=== PATIENT | female | born 1975 | race African-American/Black ===

== ENCOUNTER 2016-07-05 09:35 | Emergency (ER) | payer MEDICAID, OTHER ==
[~2016-07-05] VITALS: Ht 152.4 cm; Wt 77.6 kg
[~2016-07-05 09:35] MED LIST: ACET1TAB86 PO; AZAT50TA PO; FURO20TA3 PO; FURO40TA4 PO; HYDR25TA9 PO; LEVO50TA5 PO; NAPR500T3 PO; OXYC10TA PO; PNV1TABL4 PO; POTA20TA12 PO; PRED-220 PO; PRED5TAB19 PO; TRAM50TA PO; URSO300C3 PO
--- NOTE | 2016-07-05 10:38 | ED.ADGEN ---
Past History Past Medical History: Hypothyroid, Liver Disease, STD, UTI Past Surgical History: Cholecystectomy, , Hysterectomy, Tubal ligation , Other Smoking: Non-smoker Alcohol Use: None Drug Use: None Adult General HPI HPI Patient is a 41-year-old female presents emergency department complaining of a four-day history of dysuria and vaginal discharge consistent with her previous sexual transmitted diseases. She denies any fevers, chills, nausea, vomiting. Patient would like to defer exam and be treated empirically. Review of Systems Review of Systems Constitutional: Denies fever or chills [] Eyes: Denies change in visual acuity, redness, or eye pain [] HENT: Denies nasal congestion or sore throat [] Respiratory: Denies cough or shortness of breath [] Cardiovascular: No additional information not addressed in HPI [] GI: Denies abdominal pain, nausea, vomiting, bloody stools or diarrhea [] : Denies dysuria or hematuria [] Musculoskeletal: Denies back pain or joint pain [] Integument: Denies rash or skin lesions [] Neurologic: Denies headache, focal weakness or sensory changes [] Endocrine: Denies polyuria or polydipsia [] Current Medications Current Medications Current Medications Medications (Trade) Dose Ordered Sig/Erick Start Time Stop Time Status Last Admin Dose Admin Azithromycin (Zithromax) 1,000 mg 1X ONCE 07/05/16 11:00 07/05/16 11:01 DC 07/05/16 10:47 1,000 MG Ceftriaxone Sodium (Rocephin Im) 250 mg 1X ONCE 07/05/16 11:00 07/05/16 11:01 DC 07/05/16 10:47 250 MG Metronidazole (Flagyl) 2,000 mg 1X ONCE 07/05/16 11:00 07/05/16 11:01 DC 07/05/16 10:47 2,000 MG Allergies Allergies Allergies Coded Allergies Type Severity Reaction Last Updated Verified acetaminophen Adverse Reaction Severe 02/04/16 No Physical Exam Physical Exam Constitutional: Well developed, well nourished, no acute distress, non-toxic appearance. [] HENT: Normocephalic, atraumatic, bilateral external ears normal, oropharynx moist, no oral exudates, nose normal. [] Eyes: PERRLA, EOMI, conjunctiva normal, no discharge. [] Neck: Normal range of motion, no tenderness, supple, no stridor. [] Cardiovascular:Heart rate regular rhythm, no murmur [] Lungs & Thorax: Bilateral breath sounds clear to auscultation [] Abdomen: Bowel sounds normal, soft, no tenderness, no masses, no pulsatile masses. [] Skin: Warm, dry, no erythema, no rash. [] Back: No tenderness, no CVA tenderness. [] Extremities: No tenderness, no cyanosis, no clubbing, ROM intact, no edema. [] Neurologic: Alert and oriented X 3, normal motor function, normal sensory function, no focal deficits noted. [] Psychologic: Affect normal, judgement normal, mood normal. [] Current Patient Data Vital Signs Vital Signs Date Time Temp Pulse Resp B/P Pulse Ox O2 Delivery O2 Flow Rate FiO2 07/05/16 11:25 98.4 93 18 103/69 98 Room Air Lab Results Laboratory Tests Test 07/05/16 10:55 Urine Collection Type Unknown Urine Color Yellow Urine Clarity Cloudy Urine pH 6.5 Urine Specific [place] 1.025 Urine Protein 100 mg/dl (NEG-TRACE) Urine Glucose (UA) Negmg/dL (NEG) Urine Ketones (Stick) Tracemg/dL (NEG) Urine Blood Trace (NEG) Urine Nitrite Neg (NEG) Urine Bilirubin Neg (NEG) Urine Urobilinogen Dipstick 1mg/dL (0.2 mg/dL) Urine Leukocyte Esterase Small (NEG) Urine RBC 1-2/HPF (0-2) Urine WBC >40/HPF (0-4) Urine Squamous Epithelial Cells Occ/LPF Urine Bacteria Mod/HPF (0-FEW) Urine Mucus Slight/LPF Urine Sperm Present/HPF EKG EKG [] Radiology/Procedures Radiology/Procedures [] Course & Med Decision Making Course & Med Decision Making Pertinent Labs and Imaging studies reviewed. (See chart for details) Patient was given a dose of Rocephin, azithromycin, and Flagyl here in the emergency department. [] Final Impression Final Impression Presumed gonorrhea and chlamydia [] Problems: Dragon Disclaimer Dragon Disclaimer This electronic medical record was generated, in whole or in part, using a voice recognition dictation system. KAELYN CHEUNG MD Jul 05, 2016 10:38
[2016-07-05] MEDS: METRONIDAZOLE 500 MG TABLET PO ONE (10:47)
[2016-07-05] MEDS: CEFTRIAXONE IM 250 MG VIAL. IM ONE (10:47)
[2016-07-05] MEDS: AZITHROMYCIN 250 MG TABLET. PO ONE (10:47)
[2016-07-05] MEDS ORDERED: CIPR500T94 PO (11:03)
[2016-07-05 11:25] VITALS: BP 103/69
[2016-07-05 11:29] LABS: BILIRUBIN,URINE NEG (NEG); CLARITY,URINE CLOUDY; COLOR,URINE YELLOW; GLUCOSE,URINE NEG (NEG); NITRITE,URINE NEG (NEG); UROBILINOGEN,URINE 1 mg/dL (0.2 mg/dL)
[2016-07-05 11:30] LABS: BACTERIA,URINE MOD /HPF (0-FEW); SPERM,URINE PRESENT /HPF; SQUAMOUS EPITHELIAL CELL,UR OCC /LPF; WBC,URINE >40 /HPF (0-4)
== END 2016-07-05 11:35 | disposition home or self-care (01) ==
LOC: ER 09:35
DX: A54.9 Gonococcal infection, unspecified (principal); A74.9 Chlamydial infection, unspecified; E03.9 Hypothyroidism, unspecified; Z87.440 Personal history of urinary (tract) infections; Z88.6 Allergy status to analgesic agent
CPT/HCPCS: 81001; 87086; 96372; 99284; J0456; J0696

== ENCOUNTER 2016-07-25 10:28 | Emergency (ER) | payer OTHER ==
[~2016-07-25] VITALS: Ht 152.4 cm; Wt 77.6 kg
[~2016-07-25 10:28] MED LIST changes: +CIPR500T94 PO
--- NOTE | 2016-07-25 11:14 | ED.ADGEN ---
Past History Past Medical History: Hypothyroid, Liver Disease, STD, UTI Past Surgical History: Cholecystectomy, , Hysterectomy, Tubal ligation Smoking: Non-smoker Alcohol Use: None Drug Use: None Adult General HPI HPI Patient is a 41-year-old female presents emergency Department with upper lip swelling that has been going on suggested a. She reports a slightly worse today. She has had no intervention for. She denies any tongue or throat swelling. She denies any difficulty with breathing. She denies being on any antihypertensives but has been on several medications for her liver disease for many years. Review of Systems Review of Systems Constitutional: Denies fever or chills [] Eyes: Denies change in visual acuity, redness, or eye pain [] HENT: Denies nasal congestion or sore throat [] Respiratory: Denies cough or shortness of breath [] Cardiovascular: No additional information not addressed in HPI [] GI: Denies abdominal pain, nausea, vomiting, bloody stools or diarrhea [] : Denies dysuria or hematuria [] Musculoskeletal: Denies back pain or joint pain [] Integument: Denies rash or skin lesions [] Neurologic: Denies headache, focal weakness or sensory changes [] Endocrine: Denies polyuria or polydipsia [] Current Medications Current Medications Current Medications Medications (Trade) Dose Ordered Sig/Erick Start Time Stop Time Status Last Admin Dose Admin Diphenhydramine HCl (Benadryl) 25 mg 1X ONCE 07/25/16 11:30 07/25/16 11:31 DC 07/25/16 11:21 25 MG Epinephrine HCl 0.3 mg 1X ONCE 07/25/16 11:30 07/25/16 11:31 DC 07/25/16 11:27 0.3 MG Oxycodone HCl (Roxicodone) 10 mg 1X ONCE 07/25/16 12:15 07/25/16 12:16 DC 07/25/16 11:56 10 MG Prednisone (Prednisone) 60 mg 1X ONCE 07/25/16 11:30 07/25/16 11:31 DC 07/25/16 11:23 60 MG Allergies Allergies Allergies Coded Allergies Type Severity Reaction Last Updated Verified acetaminophen Adverse Reaction Severe 02/04/16 No Physical Exam Physical Exam Constitutional: Well developed, well nourished, no acute distress, non-toxic appearance. [] HENT: Normocephalic, atraumatic, bilateral external ears normal, oropharynx moist, no oral exudates, nose normal. Mild upper lip swelling left worse than right [] Eyes: PERRLA, EOMI, conjunctiva normal, no discharge. [] Neck: Normal range of motion, no tenderness, supple, no stridor. [] Cardiovascular:Heart rate regular rhythm, no murmur [] Lungs & Thorax: Bilateral breath sounds clear to auscultation [] Abdomen: Bowel sounds normal, soft, no tenderness, no masses, no pulsatile masses. [] Skin: Warm, dry, no erythema, no rash. [] Back: No tenderness, no CVA tenderness. [] Extremities: No tenderness, no cyanosis, no clubbing, ROM intact, no edema. [] Neurologic: Alert and oriented X 3, normal motor function, normal sensory function, no focal deficits noted. [] Psychologic: Affect normal, judgement normal, mood normal. [] Current Patient Data Vital Signs Vital Signs Date Time Temp Pulse Resp B/P Pulse Ox O2 Delivery O2 Flow Rate FiO2 07/25/16 12:22 100 16 149/82 99 Room Air 07/25/16 10:35 98.2 EKG EKG [] Radiology/Procedures Radiology/Procedures [] Course & Med Decision Making Course & Med Decision Making Pertinent Labs and Imaging studies reviewed. (See chart for details) She was given prednisone, Benadryl, and a dose of epi here in emergency department. Symptoms have improved significantly. Now appears that she may even have a bug bite near the labial fold and this may just be an allergic reaction. At any rate we will discharge her home with several days of prednisone as well as supportive care and follow-up instructions. [] Final Impression Final Impression Angioedema [] Problems: Dragon Disclaimer Dragon Disclaimer This electronic medical record was generated, in whole or in part, using a voice recognition dictation system. KAELYN CHEUNG MD Jul 25, 2016 11:14
[2016-07-25] MEDS: DIPHENHYDRAMINE HCL 25 MG CAPSULE PO ONE (11:21)
[2016-07-25] MEDS: PREDNISONE 20 MG TABLET PO ONE (11:23)
[2016-07-25] MEDS: EPINEPHRINE 1 MG/ML IM ONE (11:27)
[2016-07-25] MEDS: OXYCODONE IR 5 MG TABLET. PO ONE (11:56)
[2016-07-25] MEDS ORDERED: PRED50TA PO (12:19)
[2016-07-25] MEDS ORDERED: OXYC10TA PO (12:19)
[2016-07-25 12:22] VITALS: BP 149/82
== END 2016-07-25 12:27 | disposition home or self-care (01) ==
LOC: ER 10:28
DX: T78.3XXA Angioneurotic edema, initial encounter (principal); E03.9 Hypothyroidism, unspecified; Z87.440 Personal history of urinary (tract) infections; Z88.6 Allergy status to analgesic agent
CPT/HCPCS: 96372; 99284; J0171; J7512; Q0163

== ENCOUNTER 2016-08-13 02:23 | Emergency (ER) | payer OTHER ==
[~2016-08-13] VITALS: Ht 152.4 cm; Wt 73.1 kg
[2016-08-13 02:23] VITALS: BP 113/77
[~2016-08-13 02:23] MED LIST changes: +PRED50TA PO; +URSO300C26 PO; -URSO300C3 PO
[2016-08-13] MEDS ORDERED: HYDROcodon/IBUPROFEN 7.5/200MG 1 TAB TABLET PO ONE (02:45)
[2016-08-13] MEDS ORDERED: ONDANSETRON ODT 4 MG TAB.RAPDIS PO ONE (02:45)
--- NOTE | 2016-08-13 02:49 | PHYS DOC ---
General Chief Complaint: HAND PROBLEM Stated Complaint: LEFT HAND SWOLLEN Time Seen by MD: 02:33 Source: patient, old records Exam Limitations: no limitations Problems: History of Present Illness Initial Comments Pt is 41/F to ED c/o left 2nd finger pain. Pt states digit began hurting yesterday, pt cannot recall injury/overuse. Points down the length of 2nd digit states pain with movement/palpation. No fever/chills/malaise/n/v, no numbness/tingling/weakness/radiating symptoms. Pt reacts as if severe pain with light touch to skin of affected finger. Drug seeking behavior in question. Pt confirms to me that a friend dropped her off, states she is not driving. States she is aware of policy and legalities. Onset: yesterday Severity: severe Pain/Injury Location: left 2nd finger Method of Injury: unknown Modifying Factors: worse with jarring, worse with movement, improves with pain medication Allergies: Coded Allergies: acetaminophen (Unverified Adverse Reaction, Severe, 02/04/16) "I DON'T TAKE TYLENOL B/C OF MY LIVER ISSUES." Past Medical History Medical History: other (hypothyroid, "liver disease", STD, UTI) Surgical History: cholecystectomy, other (CS, hysterectomy, TL) Social History Smoker: non-smoker Alcohol: none Drugs: none Review of Systems Constitutional: denies chills, denies fever Respiratory: denies cough, denies shortness of breath Cardiovascular: denies chest pain, denies palpitations Gastrointestinal: denies nausea, denies vomiting Musculoskeletal: see HPI Psychiatric/Neurological: see HPI Physical Exam General Appearance: moderate distress Neck: full range of motion, supple Cardiovascular/Respiratory: normal peripheral pulses, no respiratory distress Back: no CVA tenderness, no vertebral tenderness Wrist: normal inspection, non-tender, no evidence of injury Hand: soft tissue tenderness (L 2nd finger tendons/ligs intact, no palpable bony deformity, no swell/erythema/warmth. Reacts as if severe pain to light touch of skin) Neurologic/Tendon: normal sensation, normal motor functions, normal tendon functions, responds to pain, no evidence tendon injury Psychiatric: alert, oriented x 3 Skin: normal color, warm/dry Orders, Labs, Meds 0245: Rad notified me pt refusing to go for imaging until she gets pain medication. I notified pt that it would take some time for pharmacy to verify/ approve her rx. Pain meds will take 45min-1h to take effect. Pt advised she can get imaging now when it is available and allow us to take care of her or she may be seen at another facility. Pt agreed to cooperate with staff and is in radiology. Fingers Left: no acute abnormality per my evaluation. I discussed treatment plan. Normal VS digit not swollen or warm low probability infection. Will splint and treat symptomatically pt to f/u with PCP Monday. 0324: After pt discharged she was observed driving alone away from ED. RN advised to notify law enforcement as she may present a safety risk driving after PO vicoprofen. Departure Time of Disposition: 03:00 Disposition: HOME, SELF-CARE Diagnosis: Drug Seeking, Noncompliance, reported finger pain Condition: GOOD Patient Instructions: Finger Sprain, [id number], RICE - Routine Care for Injuries, [id number] Additional Instructions: RICE, see handout. Wear metal finger splint as needed until doctor follow up. Rx: vicoprofen #10 Follow up with your doctor Monday for recheck and further evaluation/treatment if indicated. Return to ED with new or changing symptoms. Pt drove from ED lot after assuring RN and me a friend had dropped her off. She vocalized awareness of policies and legalities. No further narcotics. MARITZA REYEZ DO August 13, 2016 02:48
[2016-08-13] MEDS ORDERED: HYDR-79 PO (03:00)
--- NOTE | 2016-08-13 08:06 | RAD ---
Indication pain associated with the index finger. No history of injury. AP view of the left hand was obtained as well as oblique and lateral imaging targeted to the index finger. No bony abnormality is seen
== END 2016-08-13 03:08 | disposition home or self-care (01) ==
LOC: ER 02:23
DX: M79.645 Pain in left finger(s) (principal); Z76.5 Malingerer [conscious simulation]; E03.9 Hypothyroidism, unspecified; N39.0 Urinary tract infection, site not specified; Z91.19 Patient's noncompliance with other medical treatment and regimen; Z88.6 Allergy status to analgesic agent
CPT/HCPCS: 29130; 73140; 99284; Q0162

== ENCOUNTER 2016-08-15 02:18 | Emergency (ER) | payer OTHER ==
[~2016-08-15] VITALS: Ht 152.4 cm; Wt 73.1 kg
[~2016-08-15 02:18] MED LIST changes: +HYDR-79 PO
[2016-08-15 02:24] VITALS: BP 140/96
[2016-08-15] MEDS ORDERED: LIDOCAINE 2% 20 ML VIAL. ONE (02:33)
[2016-08-15] MEDS ORDERED: NAPR500T PO (02:54)
[2016-08-15] MEDS ORDERED: CEPH-264 PO (02:54)
--- NOTE | 2016-08-15 03:06 | PHYS DOC ---
Past History Past Medical History: Hypothyroid, Liver Disease, STD, UTI Past Surgical History: Cholecystectomy, , Hysterectomy, Tubal ligation Smoking: Non-smoker Alcohol Use: None Drug Use: None Adult General Chief Complaint Chief Complaint: FINGER INJURY [facility] HPI Patient is a pleasant 41-year-old female who presents with index finger pain on the left hand that began 4 days ago. She was seen here 2 days ago with a similar presentation claimed that her finger was injured although evaluated and x-rayed pain is increased. She has had a history of narcotic abuse and drug- seeking behavior and was discharged after receiving pain medications. Patient admits to no fevers or chills although localized swelling to the index finger she admits she does chew her fingernails. She denies prior injury like this before. Review of Systems Review of Systems Constitutional: Denies fever or chills [] Eyes: Denies change in visual acuity, redness, or eye pain [] HENT: Denies nasal congestion or sore throat [] Respiratory: Denies cough or shortness of breath [] Cardiovascular: No additional information not addressed in HPI [] GI: Denies abdominal pain, nausea, vomiting, bloody stools or diarrhea [] : Denies dysuria or hematuria [] Musculoskeletal: Denies back pain or joint pain [] Integument: Denies rash or skin lesions [] Neurologic: Denies headache, focal weakness or sensory changes [] Endocrine: Denies polyuria or polydipsia [] Current Medications Current Medications Current Medications Medications (Trade) Dose Ordered Sig/[facility] Start Time Stop Time Status Last Admin Dose Admin Lidocaine HCl 20 ml STK-MED ONCE 08/15/16 02:33 08/15/16 02:34 DC Allergies Allergies Allergies Coded Allergies Type Severity Reaction Last Updated Verified acetaminophen Adverse Reaction Severe 02/04/16 No Physical Exam Physical Exam Constitutional: Well developed, well nourished, nontoxic in appearance but very uncomfortable complaining of 10 out of 10 pain Skin: Warm, 2 touch localizing erythema with soft tissue swelling of the index finger over the distal phalanx on the dorsum of the hand of the fingernail. Extremities: Symmetric tenderness to palpation soft tissue swelling over the distal phalanx of the index finger on the left. Obvious area of erythema full range of motion at the joint sensation intact to light touch and pain skin is warm and fluctuant Neurologic: Alert and oriented X 3, normal motor function, normal sensory function, no focal deficits noted. [] Psychologic: This patient is in some significant pain and very anxious but has normal judgment and mood. Current Patient Data Vital Signs Vital Signs Date Time Temp Pulse Resp B/P (MAP) Pulse Ox O2 Delivery O2 Flow Rate FiO2 08/15/16 02:50 98.2 08/15/16 02:24 86 20 98 Room Air EKG EKG [] Radiology/Procedures Radiology/Procedures [] Course & Med Decision Making Course & Med Decision Making Pertinent Labs and Imaging studies reviewed. (See chart for details) Reviewed nursing notes and vital signs which were within normal limits. Patient has sustained a paronychial infection to the distal phalanx of the index finger on the left hand. She is right-hand dominant but she does admit to biting her fingernails. The paronychial infection was drained like any other abscess after digital block was placed, 15 blade was used to open up the abscess which drained 2-3 mL of urine at discharge which was then packed with 2- 3 cm iodoform gauze and then dressed by the nursing staff. The procedure well she'll be discharged with appropriate medications. Impression: Paronychial infection requiring incision and drainage and antibiotics and pain medications Disposition 24-48 hour follow-up PCP for wound check. Precautions given [] Dragon Disclaimer Dragon Disclaimer This chart was dictated in whole or in part using Voice Recognition software in a busy, high-work load, and often noisy Emergency Department environment. It may contain unintended and wholly unrecognized errors or omissions. Incision and Drainage Incision and Drainage : Blade Size: 15 blade I & D Procedure: betadine prep, sterile drapes applied, sterile dressing applied, gauze wick placed Progress Patient had a small 1 cm abscess or nuchal infection of the index finger on the left that was drained. Prep was chlorhexidine swabs to the finger in the area of abscess. Patient had digital block performed at the crease at the MCP of the index finger 1 needlestick placed to have cc of 2% lidocaine. Patient's initial block was effective. Used a 15 blade scalpel stab incision to the point of most fluctuance on the index finger which discharged 2-3 mL of purulent discharge. Used hemostats to open loculations within abscess. Placed 2 cm of gauze within the abscess. Closed wound with dressings. Patient tolerated procedure well there is no obvious competitions or excessive bleeding. Patient had wound dressed by nursing staff. Departure Departure: Impression: Primary Impression: Paronychia of finger of left hand Disposition: 01 HOME, SELF-CARE Condition: IMPROVED Referrals: BIRD JERONIMO MD (PCP) Patient Instructions: Paronychia, [id number] Additional Instructions: These return for any new or increasing pain or fever any questions or concerns. Please return for any fever greater than 102.2 increased swelling or drainage from the wound that's unanticipated. I would advise that you follow-up with her primary care doctor in next 24-48 hours for wound check. Scripts Naproxen (NAPROSYN) 500 Mg Tablet 1 TAB PO BID, #10 TAB 1 Refill Prov: BERNADETTE VILLALOBOS MD 08/15/16 Cephalexin (KEFLEX) 500 Mg Capsule 1 CAP PO TID, #30 CAP Prov: BERNADETTE VILLALOBOS MD 08/15/16 BERNADETTE VILLALOBOS MD August 15, 2016 03:06
== END 2016-08-15 03:00 | disposition home or self-care (01) ==
LOC: ER 02:20
DX: L03.012 Cellulitis of left finger (principal); E03.9 Hypothyroidism, unspecified; Z88.6 Allergy status to analgesic agent
CPT/HCPCS: 26010; 99284

== ENCOUNTER 2017-01-07 07:24 | Emergency (ER) | payer OTHER ==
[~2017-01-07 07:24] MED LIST changes: +CEPH-264 PO; +NAPR500T PO
[2017-01-07] MEDS ORDERED: DOXY100C2 PO (07:52)
[2017-01-07] MEDS ORDERED: IBUP600T16 PO (07:52)
--- NOTE | 2017-01-07 07:53 | PHYS DOC ---
Past History Past Medical History: Hypothyroid, Liver Disease, STD, UTI Past Surgical History: Cholecystectomy, , Hysterectomy, Tubal ligation Smoking: Non-smoker Alcohol Use: None Drug Use: None Adult General Chief Complaint Chief Complaint: SKIN PROBLEM HPI HPI Patient is a 41 year old female who presents with complaint of pain and swelling to the left middle finger. Patient's symptoms started 2 days ago. Patient states she went to go see her primary physician 2 days ago and was told to come back if symptoms worsen. Patient states she is having worsening pain and swelling to the finger since onset of symptoms. Patient denies fever. Pain remains along the dorsum of the finger. Patient denies any pain along the palmar aspect of the finger or hand. Patient states that she has pain with range of motion but is able to move the finger normally. Patient had a similar problem in the past and states that she had been diagnosed with a paronychia that require drainage at that time. Patient admits that she bites her nails. Patient currently rates her pain as 8 out of 10. Review of Systems Review of Systems Constitutional: Denies fever or chills [] Eyes: Denies change in visual acuity, redness, or eye pain [] Musculoskeletal: Left middle finger pain[] Integument: Swelling to left middle finger[] Neurologic: Denies headache, focal weakness or sensory changes [] Allergies Allergies Allergies Coded Allergies Type Severity Reaction Last Updated Verified acetaminophen Adverse Reaction Severe 02/04/16 No Physical Exam Physical Exam Constitutional: Well developed, well nourished, no acute distress, non-toxic appearance. [] HENT: Normocephalic, atraumatic, bilateral external ears normal, oropharynx moist, no oral exudates, nose normal. [] Skin: Warm, dry, no erythema, no rash. [] Extremities: Left middle finger with soft tissue swelling adjacent to the nailbed extending to the midportion of phalanx, range of motion intact, no tenderness to palpation along the flexor tendon sheath, no fluctuance noted near nailbed. [] Neurologic: Alert and oriented X 3, normal motor function, normal sensory function, no focal deficits noted. [] Current Patient Data Vital Signs Vital Signs Date Time Temp Pulse Resp B/P (MAP) Pulse Ox O2 Delivery O2 Flow Rate FiO2 01/07/17 07:28 98.1 89 16 100 Room Air Lab Results Not performed EKG EKG Not performed[] Radiology/Procedures Radiology/Procedures Not performed[] Course & Med Decision Making Course & Med Decision Making Pertinent Labs and Imaging studies reviewed. (See chart for details) No abscess pocket identified on exam. Patient's symptoms likely due to early cellulitis to left middle finger. Patient started on oral doxycycline and ibuprofen. Counseled patient on need to quit nailbiting as this is the likely cause of the patient's current infection. Advised follow-up in 2 days with primary doctor for reevaluation and return to emergency department for any worsening symptoms. Patient voices understanding and in agreement with treatment plan. Dragon Disclaimer Dragon Disclaimer This chart was dictated in whole or in part using Voice Recognition software in a busy, high-work load, and often noisy Emergency Department environment. It may contain unintended and wholly unrecognized errors or omissions. Departure Departure: Impression: Primary Impression: Cellulitis of finger of left hand Disposition: 01 HOME, SELF-CARE Condition: GOOD Referrals: BIRD JERONIMO MD (PCP) Patient Instructions: Cellulitis Additional Instructions: Follow-up with your primary doctor in 2 days for reevaluation. Return to the emergency department for any worsening symptoms. Scripts Ibuprofen (IBUPROFEN) 600 Mg Tablet 600 MG PO Q6HRS Y for PAIN, #30 TAB Prov: SERA BEAUCHAMP MD 01/07/17 Doxycycline Hyclate (DOXYCYCLINE HYCLATE) 100 Mg Capsule 1 CAP PO BID, #20 CAP Prov: SERA BEAUCHAMP MD 01/07/17 SERA BEAUCHAMP MD Jan 07, 2017 07:53
[2017-01-07] MEDS ORDERED: DOXYCYCLINE HYCLATE 100 MG TABLET ONE (07:55)
[2017-01-07] MEDS ORDERED: IBUPROFEN 600 MG TABLET. PO ONE ×2 (07:56→08:00)
[2017-01-07] MEDS ORDERED: DOXYCYCLINE HYCLATE 100 MG TABLET PO ONE (08:00)
== END 2017-01-07 07:59 | disposition home or self-care (01) ==
LOC: ER 07:24
DX: L03.012 Cellulitis of left finger (principal); E03.9 Hypothyroidism, unspecified
CPT/HCPCS: 29130; 99283-25

== ENCOUNTER 2017-05-04 10:08 | Emergency (ER) | payer OTHER ==
[~2017-05-04] VITALS: Ht 152.4 cm; Wt 72.6 kg
[~2017-05-04 10:08] MED LIST changes: +DOXY100C2 PO; +IBUP600T16 PO; +NAPR-683 PO; -NAPR500T PO; -NAPR500T3 PO; +NAPR500T4 PO
--- NOTE | 2017-05-04 11:01 | PHYS DOC ---
Past History Past Medical History: Liver Disease Past Surgical History: Cholecystectomy, , Hysterectomy, Tubal ligation Smoking: Non-smoker Alcohol Use: None Drug Use: None Adult General Chief Complaint Chief Complaint: ABDOMINAL PAIN HPI HPI Patient is a 42-year-old female who presents to the ER today secondary to vaginal irritation after her significant other urinated inside her vagina. Patient reports that she has been living with her significant other in her apartment for approximate 5 month now when he has never done that before. She reports her having sexual intercourse when she noticed that he did urinated inside her. Patient reports that she called the police have arrested for urinating inside her however the police did not arrest him. Patient reports that now she will need to follow elevation paperwork in order to have this individual removed from her apartment. Patient also reports that today she was postop Court and she is requesting a note from the ER stating that she was in the ER and therefore was unable to court today. Patient also reports that she thought she was and had a positive test. Of note her previous cyst here in the ER is negative. Patient denies any other symptomology at this time. Patient has any abdominal pain nausea vomiting diarrhea. Patient denies any dysuria frequency urgency. Patient reports mild vaginal spotting after her significant other urinated inside her vagina. Review of Systems Review of Systems Review of systems: Constitutional: Denies fever or chills Eyes: Denies change in visual acuity, redness, or eye pain HENT: Denies nasal congestion or sore throat Respiratory: Denies cough or shortness of breath All other systems were reviewed and found to be within normal limits, except as documented in this note. Physical exam: Constitutional: Well developed, well nourished, no acute distress, non-toxic appearance. HENT: Normocephalic, atraumatic, bilateral external ears normal, nose normal. Eyes: PERRLA, EOMI, conjunctiva normal, no discharge. Neck: Normal range of motion, no tenderness, supple, no stridor. Cardiovascular: Heart rate regular rhythm, Lungs & Thorax: Bilateral breath sounds clear to auscultation Abdomen: No abdominal distention. Skin: Warm, dry, no erythema, no rash. Back: Normal spinal curvature Extremities: No tenderness, no cyanosis, no clubbing, ROM intact, no edema. Neurologic: Alert and oriented X 3, normal motor function, normal sensory function, no focal deficits noted. Psychologic: Affect normal, judgement normal, mood normal. Assessment and plan: 1. Urination inside of her vagina: Patient's clinically hemodynamically stable and does not present with any acute emergent issues that will need to be intervened in the emergency department today. Patient was encouraged to have a long discussion with her significant other regarding this episode and to avoid having any further sexual intercourse with him if she cannot trust him to not urinate inside her. Patient encouraged to douche when she is home. Patient encouraged to follow-up with her [facility] doctor for further evaluation. Patient was informed of her negative test Current Patient Data Vital Signs Vital Signs Date Time Temp Pulse Resp B/P (MAP) Pulse Ox O2 Delivery O2 Flow Rate FiO2 05/04/17 10:41 98.4 78 22 100 Room Air Lab Results Laboratory Tests Test 05/04/17 10:47 POC Urine HCG, Qualitative hcg negative (Negative) EKG EKG [] Radiology/Procedures Radiology/Procedures [] Course & Med Decision Making Course & Med Decision Making Pertinent Labs and Imaging studies reviewed. (See chart for details) [] Dragon Disclaimer Dragon Disclaimer This electronic medical record was generated, in whole or in part, using a voice recognition dictation system. Departure Departure: Impression: Primary Impression: Vaginitis Disposition: HOME, SELF-CARE Condition: STABLE Referrals: BIRD JERONIMO MD (PCP) Patient Instructions: Vaginitis, [id number] CRAIG LOOMIS MD May 04, 2017 11:01
[2017-05-04 14:59] VITALS: BP 99/68
== END 2017-05-04 11:20 | disposition home or self-care (01) ==
LOC: ER 10:08
DX: N76.0 Acute vaginitis (principal); Z90.49 Acquired absence of other specified parts of digestive tract; Z90.710 Acquired absence of both cervix and uterus; Z98.51 Tubal ligation status; Z98.890 Other specified postprocedural states
CPT/HCPCS: 81025; 99282

== ENCOUNTER 2017-08-15 18:51 | Emergency (ER) | payer OTHER ==
[~2017-08-15] VITALS: Ht 152.4 cm; Wt 76.8 kg
[~2017-08-15 18:51] MED LIST changes: +NAPR-514 PO; -NAPR500T4 PO
--- NOTE | 2017-08-15 20:08 | PHYS DOC ---
Past History Past Medical History: Other Past Surgical History: Smoking: Non-smoker Alcohol Use: None Drug Use: None Adult General Chief Complaint Chief Complaint: FLANK PAIN HPI HPI Patient is a 42 year old female who presents with complaint of right-sided abdominal pain. Patient states that she has history of chronic hepatitis and is currently following at [facility] for management. The patient states that she started having severe pain earlier today and states that it has been continuing throughout the day. Patient has history of chronic pain and is currently being managed by her primary doctor with oxycodone. Patient took this medication but states that this did not help her pain. Patient has had nausea but denies any other associated symptoms including fever, bloody stools, or chest pain. Due to her pain she came to the emergency department for evaluation and treatment. Patient rates her pain as 10 out of 10 on my evaluation. Review of Systems Review of Systems Constitutional: Denies fever or chills [] Eyes: Denies change in visual acuity, redness, or eye pain [] HENT: Denies nasal congestion or sore throat [] Respiratory: Denies cough or shortness of breath [] Cardiovascular: Denies chest pain or edema[] GI: Abdominal pain, nausea, denies vomiting, bloody stools or diarrhea [] : Denies dysuria or hematuria [] Musculoskeletal: Denies back pain or joint pain [] Integument: Denies rash or skin lesions [] Neurologic: Denies headache, focal weakness or sensory changes [] All other systems were reviewed and found to be within normal limits, except as documented in this note. Allergies Allergies Allergies Coded Allergies Type Severity Reaction Last Updated Verified No Known Drug Allergies 08/15/17 No Physical Exam Physical Exam Constitutional: Alert, afebrile, appears in moderate discomfort. [] HENT: Normocephalic, atraumatic, bilateral external ears normal, oropharynx moist, no oral exudates, nose normal. [] Eyes: PERRLA, EOMI, conjunctiva normal, no discharge. [] Neck: Normal range of motion, no tenderness, supple, no stridor. [] Cardiovascular:Heart rate regular rhythm, no murmur [] Lungs & Thorax: Bilateral breath sounds clear to auscultation [] Abdomen: Bowel sounds normal, soft, right upper quadrant tenderness to palpation with guarding, no rebound tenderness, no masses, no pulsatile masses. [] Skin: Warm, dry, no erythema, no rash. [] Back: No tenderness, no CVA tenderness. [] Extremities: No tenderness, no cyanosis, no clubbing, ROM intact, no edema. [] Neurologic: Alert and oriented X 3, normal motor function, normal sensory function, no focal deficits noted. [] Current Patient Data Vital Signs Vital Signs Date Time Temp Pulse Resp B/P (MAP) Pulse Ox O2 Delivery O2 Flow Rate FiO2 08/15/17 19:03 98.2 114 22 98 Room Air Lab Results Laboratory Tests Test 08/15/17 20:23 08/15/17 21:15 08/15/17 22:00 White Blood Count 7.0 x10^3/uL Red Blood Count 3.65 x10^6/uL Hemoglobin 11.3 g/dL Hematocrit 34.1 % Mean Corpuscular Volume 93 fL Mean Corpuscular Hemoglobin 31 pg Mean Corpuscular Hemoglobin Concent 33 g/dL Red Cell Distribution Width 13.1 % Platelet Count 286 x10^3/uL Neutrophils (%) (Auto) 50 % Lymphocytes (%) (Auto) 35 % Monocytes (%) (Auto) 12 % Eosinophils (%) (Auto) 2 % Basophils (%) (Auto) 1 % Neutrophils # (Auto) 3.5 x10^3uL Lymphocytes # (Auto) 2.5 x10^3/uL Monocytes # (Auto) 0.8 x10^3/uL Eosinophils # (Auto) 0.2 x10^3/uL Basophils # (Auto) 0.1 x10^3/uL Prothrombin Time 10.4 SEC Prothromb Time International Ratio 1.0 Sodium Level 138 mmol/L Potassium Level 3.6 mmol/L Chloride Level 103 mmol/L Carbon Dioxide Level 26 mmol/L Anion Gap 9 Blood Urea Nitrogen 10 mg/dL Creatinine 1.2 mg/dL Estimated GFR (Cockcroft-Gault) 59.9 BUN/Creatinine Ratio 8 Glucose Level 80 mg/dL Calcium Level 8.6 mg/dL Total Bilirubin 0.4 mg/dL Aspartate Amino Transf (AST/SGOT) 27 U/L Alanine Aminotransferase (ALT/SGPT) 31 U/L Alkaline Phosphatase 207 U/L Total Protein 8.1 g/dL Albumin 3.0 g/dL Albumin/Globulin Ratio 0.6 Lipase 251 U/L Bedside Urine HCG, Qualitative hcg negative Urine Collection Type Unknown Urine Color Yellow Urine Clarity Hazy Urine pH 5.5 Urine Specific [place] 1.025 Urine Protein Neg Urine Glucose (UA) Neg mg/dL Urine Ketones (Stick) Neg mg/dL Urine Blood Neg Urine Nitrite Neg Urine Bilirubin Neg Urine Urobilinogen Dipstick 0.2 mg/dL Urine Leukocyte Esterase Neg Urine RBC 0 /HPF Urine WBC 1-4 /HPF Urine Squamous Epithelial Cells Mod /LPF Urine Bacteria 0 /HPF Urine Hyaline Casts Occ /HPF Urine Mucus Mod /LPF Current Medications Medications (Trade) Dose Ordered Sig/Erick Route PRN Reason Start Time Stop Time Status Last Admin Dose Admin Morphine Sulfate (Morphine 4mg Syringe) 4 mg PRN Q15MIN PRN IV/SQ PAIN GREATER THAN 3/10 08/15/17 20:15 08/16/17 20:14 08/15/17 22:15 Ondansetron HCl (Zofran) 4 mg 1X ONCE IV 08/15/17 20:30 08/15/17 20:31 DC 08/15/17 20:51 Lorazepam (Ativan) 0.5 mg 1X ONCE IV 08/15/17 20:30 08/15/17 20:31 DC 08/15/17 20:50 Sodium Chloride 500 ml @ 0 mls/hr 1X ONCE IV 08/15/17 20:15 08/15/17 20:23 DC 08/15/17 20:15 EKG EKG Not performed[] Radiology/Procedures Radiology/Procedures Not performed[] Course & Med Decision Making Course & Med Decision Making Pertinent Labs and Imaging studies reviewed. (See chart for details) Patient was given IV fluids, Zofran, and IV morphine. Patient also was trialed with IV Ativan to help with what appears to be worsening anxiety associated to her medical condition. Patient initially voiced improvement in symptoms, however patient states that despite normal lab work she is still concerned that something may be wrong with her liver. The patient states she is having continued upper abdominal pain and nausea. Spoke with patient regarding outpatient versus inpatient treatment and the patient states that she would feel more comfortable being admitted to the hospital for further symptomatic control. Spoke with Dr. Pink regarding patient's case and he accepted care patient in hospital. Dragon Disclaimer Dragon Disclaimer This electronic medical record was generated, in whole or in part, using a voice recognition dictation system. Departure Departure: Impression: Primary Impression: Intractable abdominal pain Additional Impression: Nausea Disposition: ADMITTED INPATIENT Admitting Physician: Adina Pink Condition: STABLE Referrals: BIRD JERONIMO MD (PCP) Problem Qualifiers SERA BEAUCHAMP MD August 15, 2017 20:08
[2017-08-15] MEDS ORDERED: IV NORMAL SALINE 500ML 500 ML IV ONE (20:15)
[2017-08-15] MEDS ORDERED: LORazepam 2 MG/ML VIAL IV ONE (20:30)
[2017-08-15] MEDS ORDERED: ONDANSETRON PF 4 MG/2 ML VIAL. IV ONE (20:30)
[2017-08-15 20:49] LABS: BASO # 0.1 x10^3/uL (0.0-0.2); BASO % 1 % (0-3); EOS # 0.2 x10^3/uL (0.0-0.7); EOS % 2 % (0-3); HEMATOCRIT 34.1 % (36.0-47.0); HEMOGLOBIN 11.3 g/dL (12.0-15.5); LYMPH # 2.5 x10^3/uL (1.0-4.8); LYMPH % 35 % (24-48); MEAN CORPUSCULAR HEMOGLOBIN 31 pg (25-35); MEAN CORPUSCULAR HGB CONC 33 g/dL (31-37); MEAN CORPUSCULAR VOLUME 93 fL (79-100); MONO # 0.8 x10^3/uL (0.0-1.1); MONO % 12 % (0-9); NEUT # 3.5 x10^3uL (1.8-7.7); NEUT % 50 % (31-73); PLATELET COUNT 286 x10^3/uL (140-400); RED BLOOD COUNT 3.65 x10^6/uL (3.50-5.40); RED CELL DISTRIBUTION WIDTH 13.1 % (11.5-14.5)
[2017-08-15] MEDS: MORPHINE SULFATE 4 MG/ML DISP.SYRIN. IV/SQ PRN ×3 (20:52→22:15)
[2017-08-15 21:03] LABS: ALBUMIN/GLOBULIN RATIO 0.6 (1.0-1.7); CALCIUM 8.6 mg/dL (8.5-10.1); CREATININE 1.2 mg/dL (0.6-1.0); GFR 59.9; POTASSIUM 3.6 mmol/L (3.5-5.1); TOTAL BILIRUBIN 0.4 mg/dL (0.2-1.0); TOTAL PROTEIN 8.1 g/dL (6.4-8.2)
[2017-08-15 22:34] LABS: BACTERIA,URINE 0 /HPF (0-FEW); BILIRUBIN,URINE NEG (NEG); CLARITY,URINE HAZY; COLOR,URINE YELLOW; GLUCOSE,URINE NEG (NEG); HYALINE CASTS, URINE OCC /HPF; NITRITE,URINE NEG (NEG); RBC,URINE 0 /HPF (0-2); SQUAMOUS EPITHELIAL CELL,UR MOD /LPF; UROBILINOGEN,URINE 0.2 mg/dL (0.2 mg/dL)
[2017-08-15] MEDS ORDERED: IV NORMAL SALINE 1,000ML 1,000 ML IV SCH (22:59)
[2017-08-15] MEDS ORDERED: ONDANSETRON PF 4 MG/2 ML VIAL. IV PRN (23:00)
[2017-08-15] MEDS ORDERED: MORPHINE SULFATE 4 MG/ML DISP.SYRIN. IV PRN (23:00)
[2017-08-15 23:10] VITALS: BP 132/89
== END 2017-08-15 23:23 | disposition home or self-care (01) ==
LOC: ER 18:51
DX: R10.11 Right upper quadrant pain (principal); G89.29 Other chronic pain; R11.0 Nausea; Z98.890 Other specified postprocedural states
CPT/HCPCS: 36415; 80053; 81001; 81025; 83690; 85025; 85610; 96374; 96375; 96376; 99284; J2060; J2270; J2405; J7040

== ENCOUNTER 2017-08-18 08:49 | Emergency (ER) | payer OTHER ==
[~2017-08-18] VITALS: Ht 152.4 cm; Wt 72.6 kg
[2017-08-18] MEDS ORDERED: IV NORMAL SALINE 1,000ML 1,000 ML IV SCH (09:19)
[2017-08-18] MEDS ORDERED: IOHEXOL 240 MG/ML 50ML VIAL. ONE (09:35)
--- NOTE | 2017-08-18 09:40 | PHYS DOC ---
Past History Past Medical History: Liver Disease Past Surgical History: No Surgical History Smoking: Non-smoker Alcohol Use: None Drug Use: None Adult General Chief Complaint Chief Complaint: RIB PAIN HPI HPI 42-year-old female returns to the ED with continued right upper quadrant pain. Patient was seen in this ED for similar complaint 3 days ago. She was going to be admitted but decided to go home with follow-up with her liver specialist the next day. She then went to see that specialist and was admitted at [facility] 2 days ago. The patient states that all of the lab results were negative at that time. She left AMA yesterday reportedly because they were not giving her pain medication and they were not willing to perform a biopsy that she requested. She called her liver specialist who advised the patient return to the emergency room. The patient had an ultrasound at but no CT scan. Her last CT scan was at least 1 year ago. Today the patient states that the pain is similar located in her right upper quadrant radiating around to her right mid back. It is a deep cramping sensation. She has some CVA tenderness. The patient is on chronic pain management with oxycodone. She has been taking her medications as prescribed. She denies nausea or vomiting. She has had a history of pancreatitis in the past. She denies drinking alcohol. She has had a cystectomy previously. She denies fever, chills, dysuria, constipation, diarrhea. Review of Systems Review of Systems Constitutional: Denies fever or chills [] Eyes: Denies change in visual acuity, redness, or eye pain [] HENT: Denies nasal congestion or sore throat [] Respiratory: Denies cough or shortness of breath [] Cardiovascular: No additional information not addressed in HPI [] GI: Denies abdominal pain, nausea, vomiting, bloody stools or diarrhea [] : Denies dysuria or hematuria [] Musculoskeletal: Denies back pain or joint pain [] Integument: Denies rash or skin lesions [] Neurologic: Denies headache, focal weakness or sensory changes [] Endocrine: Denies polyuria or polydipsia [] All other systems were reviewed and found to be within normal limits, except as documented in this note. Current Medications Current Medications Current Medications Medications (Trade) Dose Ordered Sig/Erick Start Time Stop Time Status Last Admin Dose Admin Hydromorphone HCl (Dilaudid) 0.5 mg PRN Q15MIN PRN 08/18/17 09:30 08/19/17 09:29 UNV Ondansetron HCl (Zofran Odt) 4 mg 1X ONCE 08/18/17 09:30 08/18/17 09:31 UNV Sodium Chloride 1,000 ml @ 1,000 mls/hr Q1H 08/18/17 09:19 08/18/17 10:18 UNV Allergies Allergies Allergies Coded Allergies Type Severity Reaction Last Updated Verified No Known Drug Allergies 08/15/17 No Physical Exam Physical Exam Constitutional: Well developed, well nourished, no acute distress, non-toxic appearance. [] HENT: Normocephalic, atraumatic, bilateral external ears normal, oropharynx moist, no oral exudates, nose normal. [] Eyes: PERRLA, EOMI, conjunctiva normal, no discharge. [] Neck: Normal range of motion, no tenderness, supple, no stridor. [] Cardiovascular:Heart rate regular rhythm, no murmur [] Lungs & Thorax: Bilateral breath sounds clear to auscultation [] Abdomen: Bowel sounds normal, soft, no tenderness, no masses, no pulsatile masses. [] Skin: Warm, dry, no erythema, no rash. [] Back: No tenderness, no CVA tenderness. [] Extremities: No tenderness, no cyanosis, no clubbing, ROM intact, no edema. [] Neurologic: Alert and oriented X 3, normal motor function, normal sensory function, no focal deficits noted. [] Psychologic: Affect normal, judgement normal, mood normal. Rectal: No impacted stool or blood, normal exam [] Current Patient Data Vital Signs Vital Signs Date Time Temp Pulse Resp B/P (MAP) Pulse Ox O2 Delivery O2 Flow Rate FiO2 08/18/17 09:11 88 22 98 Room Air Lab Results Lab results were unremarkable. Her lipase is normal. Her liver enzymes are normal. EKG EKG [] Radiology/Procedures Radiology/Procedures CT abdomen/pelvis with contrast 08/18/2017 10:35 AM INDICATION: Right upper quadrant pain. COMPARISON: None available TECHNIQUE: Multiple axial CT images of the abdomen and pelvis were obtained after the intravenous administration of nonionic contrast. Coronal and sagittal reformats are provided. FINDINGS: Lung bases are clear. Heart size is within normal limits. No suspicious hepatic mass is identified. Gallbladder surgically absent. There is no intrahepatic biliary ductal dilatation. Pancreatic duct is prominent measuring up to 4 mm. Common bile duct measures up to 6 mm. Spleen is nonenlarged. Adrenal glands are normal in appearance. No suspicious pancreatic lesion is visualized. The abdominal aorta is normal in course and caliber. There are no pathologically enlarged lymph nodes in the abdomen and pelvis. There is no abdominal free fluid. There is no free intraperitoneal air. The kidneys enhance symmetrically. There is no suspicious renal mass. There is no hydronephrosis. There are no suspected calculi within the kidneys, ureters or urinary bladder. There is a 6 mm simple cortical cyst involving the lateral midpole the left kidney. An extrarenal pelvis is noted on the right. Oral contrast was administered. Opacified bowel loops demonstrate normal mucosal fold pattern. Small and large bowel are normal in caliber. There is no evidence for bowel obstruction. There are no pericolonic inflammatory changes. A normal, nondilated appendix is visualized without adjacent inflammatory changes. Moderate amount of stool is noted throughout the colon. There is a small hiatal hernia. Partial gastrectomy changes are visualized. Urinary bladder is distended measuring 11.3 x 9.7 x 13.6 cm. Uterus and adnexa appear normal. Possible tubal ligation changes are noted. Mild fecal impaction is noted. No suspicious osseous lesions are identified. IMPRESSION: 1. There is urinary bladder distention measuring 11.3 x 9.7 x 13.6 cm. 2. Moderate amount fecal contents noted throughout the colon. There is suspected fecal impaction. 3. No evidence for obstructive uropathy. No calculi are identified in the kidneys, ureters or urinary bladder within the limitations of a contrast-enhanced examination. 4. Cholecystectomy changes. Mild prominence of the main pancreatic duct measuring up to 4 mm. If there is persistent clinical concern, further evaluation with MRCP may be of benefit. Electronically signed by: Jaimee Rider MD (08/18/2017 10:53 AM) [id number] [] Course & Med Decision Making Course & Med Decision Making Pertinent Labs and Imaging studies reviewed. (See chart for details) The patient's CT scan does show moderate stool retention throughout the colon. Her discomfort is likely due to his constipation. I will discuss with the patient options for resolving constipation which will include manual disimpaction and enema in the ED versus home bowel cleanout. The patient elected for enema in the ED. I performed a rectal exam which was unremarkable. I did not find any impacted stool or blood. The patient's enema was unsuccessful. She will take the mag citrate in the ED and then would like to go home. She is stable for discharge. [] Dragon Disclaimer Dragon Disclaimer This electronic medical record was generated, in whole or in part, using a voice recognition dictation system. Departure Departure: Referrals: PCP,UNKNOWN (PCP) CECILIO ARTHUR DO August 18, 2017 09:40
[2017-08-18] MEDS ORDERED: HYDROmorphone PF 2 MG/ML VIAL ONE (09:50)
[2017-08-18 09:55] LABS: BASO % 1 % (0-3); EOS # 0.2 x10^3/uL (0.0-0.7); EOS % 3 % (0-3); HEMATOCRIT 34.4 % (36.0-47.0); HEMOGLOBIN 11.3 g/dL (12.0-15.5); LYMPH # 1.9 x10^3/uL (1.0-4.8); LYMPH % 34 % (24-48); MEAN CORPUSCULAR HEMOGLOBIN 31 pg (25-35); MEAN CORPUSCULAR HGB CONC 33 g/dL (31-37); MEAN CORPUSCULAR VOLUME 94 fL (79-100); MONO # 0.6 x10^3/uL (0.0-1.1); MONO % 11 % (0-9); NEUT % 52 % (31-73); PLATELET COUNT 317 x10^3/uL (140-400); RED BLOOD COUNT 3.67 x10^6/uL (3.50-5.40); WHITE BLOOD COUNT 5.8 x10^3/uL (4.0-11.0)
[2017-08-18] MEDS: HYDROmorphone PF 2 MG/ML VIAL IV/SQ PRN ×3 (09:55→12:03)
[2017-08-18] MEDS ORDERED: ONDANSETRON ODT 4 MG TAB.RAPDIS PO ONE (10:10)
[2017-08-18 10:12] LABS: ALBUMIN 2.9 g/dL (3.4-5.0); ALBUMIN/GLOBULIN RATIO 0.6 (1.0-1.7); CREATININE 1.2 mg/dL (0.6-1.0); GFR 59.9; POTASSIUM 3.4 mmol/L (3.5-5.1); TOTAL BILIRUBIN 0.3 mg/dL (0.2-1.0); TOTAL PROTEIN 7.9 g/dL (6.4-8.2)
[2017-08-18] MEDS ORDERED: IOHEXOL 300 MG/ML 75 ML VIAL. IV ONE (10:40)
--- NOTE | 2017-08-18 10:56 | RAD ---
PQRS Compliance Statement: One or more of the following individualized dose reduction techniques were utilized for this examination: 1. Automated exposure control 2. Adjustment of the mA and/or kV according to patient size 3. Use of iterative reconstruction technique CT abdomen/pelvis with contrast 08/18/2017 10:35 AM INDICATION: Right upper quadrant pain. COMPARISON: None available TECHNIQUE: Multiple axial CT images of the abdomen and pelvis were obtained after the intravenous administration of nonionic contrast. Coronal and sagittal reformats are provided. FINDINGS: Lung bases are clear. Heart size is within normal limits. No suspicious hepatic mass is identified. Gallbladder surgically absent. There is no intrahepatic biliary ductal dilatation. Pancreatic duct is prominent measuring up to 4 mm. Common bile duct measures up to 6 mm. Spleen is nonenlarged. Adrenal glands are normal in appearance. No suspicious pancreatic lesion is visualized. The abdominal aorta is normal in course and caliber. There are no pathologically enlarged lymph nodes in the abdomen and pelvis. There is no abdominal free fluid. There is no free intraperitoneal air. The kidneys enhance symmetrically. There is no suspicious renal mass. There is no hydronephrosis. There are no suspected calculi within the kidneys, ureters or urinary bladder. There is a 6 mm simple cortical cyst involving the lateral midpole the left kidney. An extrarenal pelvis is noted on the right. Oral contrast was administered. Opacified bowel loops demonstrate normal mucosal fold pattern. Small and large bowel are normal in caliber. There is no evidence for bowel obstruction. There are no pericolonic inflammatory changes. A normal, nondilated appendix is visualized without adjacent inflammatory changes. Moderate amount of stool is noted throughout the colon. There is a small hiatal hernia. Partial gastrectomy changes are visualized. Urinary bladder is distended measuring 11.3 x 9.7 x 13.6 cm. Uterus and adnexa appear normal. Possible tubal ligation changes are noted. Mild fecal impaction is noted. No suspicious osseous lesions are identified. IMPRESSION: 1. There is urinary bladder distention measuring 11.3 x 9.7 x 13.6 cm. 2. Moderate amount fecal contents noted throughout the colon. There is suspected fecal impaction. 3. No evidence for obstructive uropathy. No calculi are identified in the kidneys, ureters or urinary bladder within the limitations of a contrast-enhanced examination. 4. Cholecystectomy changes. Mild prominence of the main pancreatic duct measuring up to 4 mm. If there is persistent clinical concern, further evaluation with MRCP may be of benefit. Electronically signed by: Jaimee Rider MD (08/18/2017 10:53 AM) [id number]
[2017-08-18 11:29] LABS: COLOR,URINE YELLOW
[2017-08-18 11:30] LABS: BILIRUBIN,URINE NEG (NEG); CLARITY,URINE HAZY; GLUCOSE,URINE NEG (NEG)
[2017-08-18] MEDS ORDERED: MAGNESIUM CITRATE 296 ML SOLUTION. PO ONE (11:30)
[2017-08-18 11:31] LABS: BACTERIA,URINE 0 /HPF (0-FEW); NITRITE,URINE NEG (NEG); RBC,URINE OCC /HPF (0-2); SQUAMOUS EPITHELIAL CELL,UR FEW /LPF; UROBILINOGEN,URINE 0.2 mg/dL (0.2 mg/dL); WBC,URINE 0 /HPF (0-4)
[2017-08-18] MEDS ORDERED: SODIUM PHOSPHATES 19/7GM 133 ML ENEMA. ONE (11:46)
[2017-08-18 12:54] VITALS: BP 140/89
== END 2017-08-18 12:55 | disposition home or self-care (01) ==
LOC: ER 08:49
DX: R10.11 Right upper quadrant pain (principal)
CPT/HCPCS: 36415; 74177; 80053; 81001; 83690; 85025; 96374; 96376; 99285; J1170; Q0162; Q9967; J7030

== ENCOUNTER 2017-09-11 16:48 | Inpatient (IN) | payer OTHER ==
[~2017-09-11] VITALS: Ht 152.4 cm; Wt 79.2 kg
[2017-09-11] MEDS ORDERED: IV NORMAL SALINE 500ML 1,000 ML IV SCH (17:15)
--- NOTE | 2017-09-11 17:16 | EKG ---
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
--- NOTE | 2017-09-11 17:32 | PHYS DOC ---
Past History Past Medical History: Liver Disease, Other Past Surgical History: No Surgical History Smoking: Non-smoker Alcohol Use: None Drug Use: None Adult General Chief Complaint Chief Complaint: DIZZY/LIGHT HEADED HPI HPI 42-year-old female presents to EMS after syncopal episode. Patient states that she has been feeling dizzy all day which she describes as a lightheaded feeling. She took 2 naps and after waking up felt better both times. The patient was going to her car with her kids take him somewhere when she put the barros in the lock nuts last thing she remembers. She passed out and fell onto the asphalt. She woke up to her children and a good [employer] helping her to the sidewalk. She has remained conscious since that time. She has some sided facial pain from hitting her face on the ground. She states that she has not been eating much today. She has been trying to stay hydrated, but admits she may not be well-hydrated today. She was feeling fine yesterday. She denies shortness of breath, cough, chest pain, diarrhea, dysuria, urinary frequency. She has not had any dark black stools. She does have a history of hiatal hernia and take a PPI for treatment. She denies fever or chills. Review of Systems Review of Systems Constitutional: Denies fever or chills [] Eyes: Denies change in visual acuity, redness, or eye pain [] HENT: Denies nasal congestion or sore throat, face pain [] Respiratory: Denies cough or shortness of breath [] Cardiovascular: No additional information not addressed in HPI [] GI: Denies abdominal pain, nausea, vomiting, bloody stools or diarrhea [] : Denies dysuria or hematuria [] Musculoskeletal: Denies back pain or joint pain [] Integument: Denies rash or skin lesions [] Neurologic: Denies headache, focal weakness or sensory changes [] Endocrine: Denies polyuria or polydipsia [] All other systems were reviewed and found to be within normal limits, except as documented in this note. Current Medications Current Medications Current Medications Medications (Trade) Dose Ordered Sig/Erick Start Time Stop Time Status Last Admin Dose Admin Sodium Chloride 1,000 ml @ 1,000 mls/hr Q1H 09/11/17 17:15 Allergies Allergies Allergies Coded Allergies Type Severity Reaction Last Updated Verified No Known Drug Allergies 08/15/17 No Physical Exam Physical Exam Constitutional: Well developed, well nourished, no acute distress, non-toxic appearance. [] HENT: Normocephalic, atraumatic, bilateral external ears normal, oropharynx moist, no oral exudates, nose normal. tenderness over right cheek [] Eyes: PERRLA, EOMI, conjunctiva normal, no discharge. [] Neck: Normal range of motion, no tenderness, supple, no stridor. [] Cardiovascular:Heart rate regular rhythm, no murmur [] Lungs & Thorax: Bilateral breath sounds clear to auscultation [] Abdomen: Bowel sounds normal, soft, no tenderness, no masses, no pulsatile masses. [] Skin: Warm, dry, no erythema, no rash. [] Back: No tenderness, no CVA tenderness. [] Extremities: No tenderness, no cyanosis, no clubbing, ROM intact, no edema. [] Neurologic: Alert and oriented X 3, normal motor function, normal sensory function, no focal deficits noted. [] Psychologic: Affect normal, judgement normal, mood normal. [] Current Patient Data Vital Signs Vital Signs Date Time Temp Pulse Resp B/P (MAP) Pulse Ox O2 Delivery O2 Flow Rate FiO2 09/11/17 17:22 73 16 83/61 (68) 99 Room Air 09/11/17 16:50 98.2 Lab Results Laboratory Tests Test 09/11/17 17:28 09/11/17 18:46 White Blood Count 8.1 x10^3/uL Red Blood Count 3.59 x10^6/uL Hemoglobin 11.0 g/dL Hematocrit 33.1 % Mean Corpuscular Volume 92 fL Mean Corpuscular Hemoglobin 31 pg Mean Corpuscular Hemoglobin Concent 33 g/dL Red Cell Distribution Width 13.1 % Platelet Count 361 x10^3/uL Neutrophils (%) (Auto) 66 % Lymphocytes (%) (Auto) 24 % Monocytes (%) (Auto) 7 % Eosinophils (%) (Auto) 2 % Basophils (%) (Auto) 1 % Neutrophils # (Auto) 5.4 x10^3uL Lymphocytes # (Auto) 2.0 x10^3/uL Monocytes # (Auto) 0.6 x10^3/uL Eosinophils # (Auto) 0.1 x10^3/uL Basophils # (Auto) 0.0 x10^3/uL Sodium Level 139 mmol/L Potassium Level 2.8 mmol/L Chloride Level 105 mmol/L Carbon Dioxide Level 24 mmol/L Anion Gap 10 Blood Urea Nitrogen 13 mg/dL Creatinine 1.4 mg/dL Estimated GFR (Cockcroft-Gault) 50.1 Glucose Level 138 mg/dL Calcium Level 7.6 mg/dL Urine Collection Type Unknown Urine Color Yaquelin Urine Clarity Cloudy Urine pH 6.0 Urine Specific [place] 1.015 Urine Protein 30 mg/dl Urine Glucose (UA) Neg mg/dL Urine Ketones (Stick) Neg mg/dL Urine Blood Large Urine Nitrite Neg Urine Bilirubin Neg Urine Urobilinogen Dipstick 0.2 mg/dL Urine Leukocyte Esterase Neg Urine RBC 3-5 /HPF Urine WBC 5-10 /HPF Urine Squamous Epithelial Cells Many /LPF Urine Amorphous Sediment Present /HPF Urine Bacteria Mod /HPF Urine Hyaline Casts Mod /HPF Urine Mucus Mod /LPF Urine Test Negative Current Medications Medications (Trade) Dose Ordered Sig/Erick Route PRN Reason Start Time Stop Time Status Last Admin Dose Admin Sodium Chloride 1,000 ml @ 1,000 mls/hr Q1H IV 09/11/17 17:15 09/11/17 17:39 DC 09/11/17 17:38 Potassium Chloride/Sodium Chloride 1,000 ml @ 500 mls/hr 1X ONCE IV 09/11/17 18:00 09/11/17 18:26 DC 09/11/17 18:16 Potassium Chloride (Klor-Con) 40 meq 1X ONCE PO 09/11/17 18:15 09/11/17 18:16 DC 09/11/17 18:14 Potassium Chloride/Sodium Chloride 1,000 ml @ As Directed STK-MED ONCE IV 09/11/17 17:59 09/11/17 18:26 DC Potassium Chloride (Klor-Con) 40 meq 1X ONCE PO 09/11/17 19:00 09/11/17 19:01 DC 09/11/17 19:36 EKG EKG Normal sinus rhythm, rate 69, normal axis, no ST elevations or depressions.[] Radiology/Procedures Radiology/Procedures PROCEDURE: CT HEAD WO CONTRAST EXAM: CT HEAD WITHOUT CONTRAST. HISTORY: Head trauma, dizziness, syncope, tinnitus. TECHNIQUE: Computed tomography of the head was performed without intravenous contrast. COMPARISON: None. FINDINGS: There is no intracranial hemorrhage. [place]-white differentiation is preserved. The ventricles are normal in size and position. The visualized paranasal sinuses appear clear. The orbits are unremarkable. The temporal bones are unremarkable. The calvarium reveals no suspicious lesions. IMPRESSION: 1. No acute intracranial findings. *One or more of the following individualized dose reduction techniques were utilized for this examination: 1. Automated exposure control. 2. Adjustment of the mA and/or kV according to patient size. 3. Use of iterative reconstruction technique. Electronically signed by: Shannan Laboy MD (09/11/2017 6:01 PM) [facility] EXAM: CHEST 2 VIEWS. HISTORY: Weakness, dizziness, syncope. COMPARISON: December 16, 2014. FINDINGS: Frontal and lateral views of the chest are obtained. There are no confluent infiltrates. There is mild atelectasis in the bases. There is no pneumothorax or pleural effusion. The heart is not enlarged. IMPRESSION: 1. No confluent infiltrates. Electronically signed by: Shannan Laboy MD (09/11/2017 5:58 PM) [facility] [] Course & Med Decision Making Course & Med Decision Making Pertinent Labs and Imaging studies reviewed. (See chart for details) Addendum by Dr. Sera Beauchamp at 1951: I took over care of patient at 1800. The patient received a total of 80 mEq of oral potassium in the emergency department and IV fluids. On reevaluation, patient states that her symptoms have improved. The patient's syncope is likely the result of dehydration and poor oral intake. Patient states that she feels comfortable going home at this time. I have low suspicion that patient's symptoms have an acute cardiac etiology. After administration of 2 L of IV fluids however, the patient remained dizzy upon standing and blood pressure measured between 80-90 systolic. After speaking with the patient, she states that she would feel more comfortable being admitted to the hospital for further treatment. I spoke with Dr. Pink who accepted care of patient in the hospital. Dragon Disclaimer Dragon Disclaimer This electronic medical record was generated, in whole or in part, using a voice recognition dictation system. Departure Departure: Impression: Primary Impression: Vasovagal syncope Additional Impressions: Dehydration Hypokalemia Disposition: ADMITTED INPATIENT Admitting Physician: Adina Pink Condition: STABLE Referrals: PCP,NO (PCP) Problem Qualifiers CECILIO ARTHUR DO Sep 11, 2017 17:31 SERA BEAUCHAMP MD Sep 11, 2017 19:53
[2017-09-11 17:42] LABS: BASO % 1 % (0-3); EOS # 0.1 x10^3/uL (0.0-0.7); EOS % 2 % (0-3); HEMATOCRIT 33.1 % (36.0-47.0); LYMPH % 24 % (24-48); MEAN CORPUSCULAR HEMOGLOBIN 31 pg (25-35); MEAN CORPUSCULAR HGB CONC 33 g/dL (31-37); MEAN CORPUSCULAR VOLUME 92 fL (79-100); MONO # 0.6 x10^3/uL (0.0-1.1); MONO % 7 % (0-9); NEUT # 5.4 x10^3uL (1.8-7.7); NEUT % 66 % (31-73); PLATELET COUNT 361 x10^3/uL (140-400); RED BLOOD COUNT 3.59 x10^6/uL (3.50-5.40); RED CELL DISTRIBUTION WIDTH 13.1 % (11.5-14.5); WHITE BLOOD COUNT 8.1 x10^3/uL (4.0-11.0)
[2017-09-11 17:52] LABS: CALCIUM 7.6 mg/dL (8.5-10.1); CREATININE 1.4 mg/dL (0.6-1.0); GFR 50.1
[2017-09-11 17:55] LABS: POTASSIUM 2.8 mmol/L (3.5-5.1)
[2017-09-11] MEDS ORDERED: POTASSIUM CL 40MEQ IN 0.9%NACL 1,000 ML IV ONE ×2 (17:59→18:00)
--- NOTE | 2017-09-11 18:01 | RAD ---
EXAM: CHEST 2 VIEWS. HISTORY: Weakness, dizziness, syncope. COMPARISON: December 16, 2014. FINDINGS: Frontal and lateral views of the chest are obtained. There are no confluent infiltrates. There is mild atelectasis in the bases. There is no pneumothorax or pleural effusion. The heart is not enlarged. IMPRESSION: 1. No confluent infiltrates. Electronically signed by: Shannan Laboy MD (09/11/2017 5:58 PM) [facility]
--- NOTE | 2017-09-11 18:05 | RAD ---
EXAM: CT HEAD WITHOUT CONTRAST. HISTORY: Head trauma, dizziness, syncope, tinnitus. TECHNIQUE: Computed tomography of the head was performed without intravenous contrast. COMPARISON: None. FINDINGS: There is no intracranial hemorrhage. [place]-white differentiation is preserved. The ventricles are normal in size and position. The visualized paranasal sinuses appear clear. The orbits are unremarkable. The temporal bones are unremarkable. The calvarium reveals no suspicious lesions. IMPRESSION: 1. No acute intracranial findings. *One or more of the following individualized dose reduction techniques were utilized for this examination: 1. Automated exposure control. 2. Adjustment of the mA and/or kV according to patient size. 3. Use of iterative reconstruction technique. Electronically signed by: Shannan Laboy MD (09/11/2017 6:01 PM) [facility]
[2017-09-11] MEDS ORDERED: POTASSIUM CHLORIDE 20 MEQ TABLET.ER. PO ONE ×2 (18:15→19:00)
[2017-09-11 19:13] LABS: U PREG PATIENT NEGATIVE (NEG)
[2017-09-11 19:28] LABS: BACTERIA,URINE MOD /HPF (0-FEW); BILIRUBIN,URINE NEG (NEG); CLARITY,URINE CLOUDY; COLOR,URINE AMBER; GLUCOSE,URINE NEG (NEG); NITRITE,URINE NEG (NEG); SQUAMOUS EPITHELIAL CELL,UR MANY /LPF; UROBILINOGEN,URINE 0.2 mg/dL (0.2 mg/dL)
[2017-09-11 19:29] LABS: AMORPHOUS SEDIMENT,UR PRESENT /HPF; HYALINE CASTS, URINE MOD /HPF
[2017-09-11] MEDS ORDERED: IV NORMAL SALINE 1,000ML 1,000 ML IV ONE (20:15)
--- NOTE | 2017-09-11 22:07 | NUR ---
[facility] -- ADMISSION -- PT at home got dizzy, collapsed, EMS called. PT brought to ED. PT received bolus NS x2, potassium 80 mEq (potassium at 2.8 on admission). PT follows at for cirrhosis. Per PT has not taken "liver med" for 3 weeks. Per PT, she took her oxycodone and Tramadol together last at 1300 on 09/11. PT states she has not eaten at all today, cannot remember if she ate yesterday. PT admitted to unit, arrived via EMS transport in stable condition, assessed, meds verified. PT oriented to unit.
[2017-09-11] MEDS ORDERED: ONDANSETRON PF 4 MG/2 ML VIAL. IV PRN (22:45)
[2017-09-11 22:55] VITALS: BP 145/97
[2017-09-11] MEDS: IV NORMAL SALINE 1,000ML 1,000 ML IV SCH (23:02)
[2017-09-12] VITALS (8 sets, daily range): BP systolic 107–140; BP diastolic 62–99
[2017-09-12] MEDS ORDERED: BENZ-8 PO (01:29)
[2017-09-12] MEDS ORDERED: FURO20TA3 PO (01:29)
[2017-09-12] MEDS ORDERED: MYCO250C PO (01:29)
[2017-09-12] MEDS ORDERED: DIPH50CA PO (01:29)
[2017-09-12] MEDS ORDERED: URSO300C26 PO (01:29)
[2017-09-12] MEDS ORDERED: ZOLP10TA4 PO (01:29)
[2017-09-12] MEDS: oxyCODONE IR 5 MG TABLET PO SCH ×6 (02:17→20:02)
[2017-09-12] MEDS ORDERED: oxyCODONE IR 5 MG TABLET PO SCH (04:00)
[2017-09-12] MEDS: LEVOTHYROXINE 50 MCG TABLET PO SCH (06:07)
[2017-09-12] MEDS: traMADol 50 MG TABLET PO SCH ×3 (06:08→21:29)
[2017-09-12 06:51] LABS: BASO # 0.1 x10^3/uL (0.0-0.2); BASO % 1 % (0-3); EOS # 0.2 x10^3/uL (0.0-0.7); EOS % 2 % (0-3); HEMATOCRIT 33.2 % (36.0-47.0); HEMOGLOBIN 11.1 g/dL (12.0-15.5); LYMPH # 3.2 x10^3/uL (1.0-4.8); LYMPH % 37 % (24-48); MEAN CORPUSCULAR HEMOGLOBIN 31 pg (25-35); MEAN CORPUSCULAR HGB CONC 33 g/dL (31-37); MEAN CORPUSCULAR VOLUME 92 fL (79-100); MONO # 0.6 x10^3/uL (0.0-1.1); MONO % 7 % (0-9); NEUT # 4.5 x10^3uL (1.8-7.7); NEUT % 53 % (31-73); PLATELET COUNT 339 x10^3/uL (140-400); RED CELL DISTRIBUTION WIDTH 13.2 % (11.5-14.5); WHITE BLOOD COUNT 8.5 x10^3/uL (4.0-11.0)
[2017-09-12 06:56] LABS: CALCIUM 7.8 mg/dL (8.5-10.1); GFR 73.9; POTASSIUM 3.9 mmol/L (3.5-5.1)
[2017-09-12] MEDS ORDERED: FUROSEMIDE 20 MG TABLET PO SCH (09:00)
[2017-09-12] MEDS ORDERED: URSODIOL 300 MG CAPSULE. PO SCH (09:00)
[2017-09-12] MEDS: MYCOPHENOLATE MOFETIL 250 MG CAPSULE PO SCH ×4 (09:12→21:28)
[2017-09-12] MEDS: IV NORMAL SALINE 1,000ML 1,000 ML IV SCH ×2 (09:25→20:03)
[2017-09-12] MEDS: URSODIOL 300 MG CAPSULE. PO SCH (14:58)
--- NOTE | 2017-09-12 16:38 | HP ---
ADMIT DATE: 09/11/2017 HISTORY OF PRESENT ILLNESS: The patient is a 42-year-old -[place]ymra[place] female patient, who apparently came to the Emergency Room with the complaint of feeling dizzy all day. She described as lightheaded feeling, denied any nausea or vomiting, denied seeing things spinning around. She took DuoNeb and after waking up, felt better both times. The patient was going to her car with her kids and taking somewhere when she ____ last thing she remembers she apparently passed out and fell down onto the asphalt. She woke up to her children and the Good [employer] helping her to the sidewalk. She has remained conscious since that time. She has some sided facial pain from hitting her face on the ground. She stated that she had not been eating much today. She has been trying to stay hydrated but admits that she had not done well with that and looking into her medication list, she was taking Lasix 20 mg every day. She denied any chest pain. Denied any nausea, vomiting, diarrhea. Denied any hematemesis, melena or hematochezia. She was evaluated in the Emergency Room and was found to have hypokalemia and acute kidney injury. Her potassium is only 2.8 and her creatinine was 1.4. She was extremely hypertensive on arrival, in fact her blood pressure was only 75 systolic at one point in time. She was given IV fluid and was admitted for further evaluation and treatment. PAST MEDICAL HISTORY: Her past medical history is significant for autoimmune hepatitis. She also has hypothyroidism. PAST SURGICAL HISTORY: Significant for , umbilical hernia repair, left unilateral salpingo-oophorectomy, liver biopsy multiple times, She has also esophagogastroduodenoscopy. ALLERGIES: She has no known drug allergies. MEDICATIONS: She is currently on following medications diphenhydramine 50 mg p.o. p.r.n. for itching, oxycodone 10 mg every 4 hours, tramadol 50 mg 3 times a day, Ambien 10 mg at bedtime, furosemide 20 mg daily, benzonatate 100 mg at bedtime, ursodiol 300 mg twice a day, levothyroxine sodium 50 mcg once a day, mycophenolate mofetil 250 mg p.o. q.i.d. FAMILY HISTORY: She has 3 brothers and 1 sister, all younger and healthy. Her father of myocardial infarction. Mother of sepsis. She did have Graves' disease. SOCIAL HISTORY: She is , has 4 sons and 4 daughters. She does not smoke, drink alcohol or recreational drugs. She is a [id number]-[id number] mom. REVIEW OF SYSTEMS: The patient denied any blurring of vision, cataract, glaucoma or macular degeneration. Denied any earache, tinnitus or sensorineural deafness. Denied any nosebleeds, stuffy nose or postnasal drip. Denied any sore throat, sore tongue, toothache, hoarseness of voice or difficulty swallowing. Denied any nausea, vomiting, diarrhea or constipation. Denied any hematemesis, melena or hematochezia. Denied any dysuria, frequency or hematuria. Denied any chest pain, shortness of breath, orthopnea, paroxysmal dyspnea. Denied any cough, phlegm, hemoptysis. Did complain of dizziness and had had a syncopal episode. PHYSICAL EXAMINATION: GENERAL: On arrival to the Emergency Room, the patient was well-developed, well-nourished, in no acute distress 42-year-old -[place]ym[place] female patient. There was no pallor, jaundice or cyanosis. No lymphadenopathy, no thyromegaly. No jugular venous distension. No lower limb edema. VITAL SIGNS: Her heart rate on arrival was 72, blood pressure was 83/61, her temperature was 98.2, respiratory rate was 16, and oxygen saturation was 99% on room air. HEAD, EYES, EARS, NOSE AND THROAT: Showed normocephalic, atraumatic. NECK: Supple. HEART: Showed normal first and second heart sounds. No gallop, rub or murmur. CHEST: Clear to auscultation. No crepitation or rhonchi. ABDOMEN: Distended, soft, nontender. No guarding or rigidity. No organomegaly. Hernial orifice is intact. Bowel sounds normal. NEUROLOGIC: She is awake, alert, responding appropriately. Her cranial nerves are intact. EXTREMITIES: She moves extremities without difficulty. LABORATORY AND DIAGNOSTIC DATA: Her lab work on initial evaluation showed her serum sodium was 139, potassium 2.8, chloride 105, bicarbonate 24, anion gap of 10, BUN 13, creatinine 1.4, estimated GFR was 50 mL per minute. Her glucose was 138, calcium was 7.6. Her white cell count was 8000, hemoglobin 11, hematocrit 33, MCV 92, and platelet count of 361,000. Urinalysis showed the urine was cloudy with the pH of 6, specific gravity of 1.015, small amount of protein, negative for glucose, ketones, large amount of blood, negative for nitrite and leukocyte esterase. There are 3-5 RBCs, 5-10 WBCs, moderate amount of bacteria. The urine test was negative. Her CT scan of the head showed that there is no intracranial hemorrhage, cage-white differentiation is preserved. The ventricles are normal in size and position. The visualized paranasal sinuses appeared clear. The orbits are unremarkable. The temporal bones are unremarkable. The calvarium reveals no suspicious lesions. Her chest x-ray also showed that there is no confluent infiltrate. There is mild atelectasis in the bases. There is no pneumothorax or pleural effusion. The heart is not enlarged. ASSESSMENT AND PLAN: So, in summary, this is a 42-year-old -[place]ym[place] female patient who is known to have autoimmune hepatitis and also hypothyroidism for which she is on mycophenolate, but she is also on diuretics in the form of Lasix 20 mg. She has been feeling dizzy throughout the day yesterday and probably she is not eating and drinking and continued to take her Lasix. She has hypokalemia and definitely acute kidney injury with the creatinine of 1.4. In fact, even this morning when we checked her orthostatics, heart blood pressure dropped and heart rate accelerates when she stands up. I am going to continue the IV fluid and I will check her labs again tomorrow and hopefully she can be discharged once stabilized. JACEY MC MD DR: MICHELLE/francisco javier JOB#: [id number] / [id number]
[2017-09-12] MEDS ORDERED: ZOLPIDEM 5 MG TABLET. PO PRN (21:00)
[2017-09-12] MEDS: BENZONATATE 100 MG CAPSULE. PO SCH (21:29)
[2017-09-12] MEDS: ZOLPIDEM 5 MG TABLET. PO SCH (21:29)
--- NOTE | 2017-09-12 21:57 | PN ---
DATE: 09/12/2017 SUBJECTIVE: The patient is resting, slightly propped up in bed, in no apparent respiratory distress. She is awake, alert, continued to complain of dizziness when she stands up, but generally feels much better. Her orthostatics showed that her systolic pressure dropped from 123 down to 107 from lying to standing and rate accelerated from 70 to 93: OBJECTIVE: GENERAL: When I examined her today, she looked well and was clearly in no apparent respiratory distress, slightly pale, but no jaundice, cyanosis, lymphadenopathy or thyromegaly. No jugular venous distension. No limb edema. VITAL SIGNS: His heart rate was 83, blood pressure 113/83, temperature was 98.3, respiratory rate was 14 and oxygen saturation was 100% on room air. HEAD, EYES, EARS, NOSE AND THROAT: Showed normocephalic, atraumatic. NECK: Supple. HEART: Showed normal first and second heart sounds. No gallop, rub or murmur. CHEST: Clear to auscultation. No crepitation or rhonchi. ABDOMEN: Distended, soft, nontender. No guarding or rigidity. No organomegaly. Hernial orifice intact. Bowel sounds normal. NEUROLOGIC: She was awake, alert, responding appropriately. Cranial nerves intact. She moves extremities without difficulty. She apparently managed to walk to the bathroom and back, but continued to feel dizzy. She has received so far almost a liter and a half of normal saline. LABORATORY DATA: Her lab work this morning showed that her serum sodium was 139, potassium 3.9, chloride 109, bicarbonate 23, anion gap of 7, BUN 10, creatinine 1, estimated GFR was 74 mL per minute. Her glucose was 87, calcium was 7.8. Her white cell count was 8500, hemoglobin 11, hematocrit 33, MCV 92, and platelet count of 339,000. ASSESSMENT: Syncopal episode, likely due to dehydration, induced by diuretics and poor oral intake; hypokalemia, acute kidney injury with immune hepatitis, and hypothyroidism. PLAN: My plan is to discontinue Lasix altogether. Continue with IV fluid for now. She has been on steroids for a long time. She was on high dose steroids and the last time she took any prednisone was in March of last year. Apparently, it caused significant steroid-induced osteoporosis and her varnish cooker decided to discontinue the steroids and start her on mycophenolate. I will check her morning cortisol, check her TSH. Repeat her labs tomorrow as well as her orthostatics and I had a lengthy discussion with her about the side effect of diuretics and that she might need to weigh herself and she take her Lasix on as needed, instead of taking it every day. JACEY MC MD DR: MICHELLE/francisco javier JOB#: [id number] / [id number]
[2017-09-13] VITALS (7 sets, daily range): BP systolic 127–147; BP diastolic 51–98
[2017-09-13] MEDS: diphenhydrAMINE HCL 25 MG CAPSULE PO PRN ×3 (00:14→21:34)
[2017-09-13] MEDS: oxyCODONE IR 5 MG TABLET PO SCH ×6 (00:14→20:00)
--- NOTE | 2017-09-13 00:15 | NUR ---
2245: Pt put education rep light. Upon this RN entering room, pt demanding "give me my walking papers." Pt wishes to leave AMA. Pt currently on the phone shouting with a family member. Reports there is a situation at home regarding her children which requires her presence. Discussed risks of leaving the hospital at this time and benefits of continuing treatment. Pt still wishes to leave. Declined IV DC'd or telemetry removed at this time as she is waiting to get a hold of someone to pick her up. Unable to reach pt's DPOA at this time. 0010: Spoke with pt's DPOA/Aunt Sybil Ledezma and explained situation. Sybil wished to speak with patient and convinced her to stay and her Aunt will deal with the situation at home. Pt repositioned for comfort and IV fluids continued. Pt c/o headache and back pain, given scheduled oxycodone IR per request. Will monitor. Addendum: 09/13/17 at 0250 by TAJ KIM RN Dr. Pink, nursing sup, and security all notified of patient situation.
--- NOTE | 2017-09-13 02:00 | NUR ---
Report given to PREM Crowder.
[2017-09-13] MEDS: LEVOTHYROXINE 50 MCG TABLET PO SCH (06:10)
[2017-09-13] MEDS: traMADol 50 MG TABLET PO SCH ×3 (06:10→21:34)
[2017-09-13 06:27] LABS: ALBUMIN 2.4 g/dL (3.4-5.0); ALBUMIN/GLOBULIN RATIO 0.5 (1.0-1.7); CALCIUM 7.9 mg/dL (8.5-10.1); GFR 73.9; POTASSIUM 3.1 mmol/L (3.5-5.1); TOTAL BILIRUBIN 0.3 mg/dL (0.2-1.0); TOTAL PROTEIN 6.8 g/dL (6.4-8.2)
[2017-09-13] MEDS: MYCOPHENOLATE MOFETIL 250 MG CAPSULE PO SCH ×4 (08:08→21:34)
[2017-09-13] MEDS: URSODIOL 300 MG CAPSULE. PO SCH ×2 (08:08→12:55)
[2017-09-13] MEDS ORDERED: POTASSIUM CHLORIDE 20 MEQ TABLET.ER. PO ONE ×3 (14:15→17:00)
[2017-09-13 17:28] LABS: CALCIUM 8.3 mg/dL (8.5-10.1); GFR 73.9; POTASSIUM 4.3 mmol/L (3.5-5.1)
--- NOTE | 2017-09-13 19:00 | NUR ---
Neuro consult paged to Dr. Farrell. Call back received, will see pt in AM.
--- NOTE | 2017-09-13 19:29 | PN ---
DATE: 09/13/2017 SUBJECTIVE: The patient is resting, slightly propped up in bed, no apparent distress. She continued to complain of feeling dizzy when she walks, although there is definitely no evidence of postural drop today. Her lab works definitely much improved compared to yesterday, although her potassium continued to be on the low side. Her creatinine is down from 1.4 to 1, and her potassium is up to 3.1. Her TSH is slightly elevated, and the morning cortisol is still pending at the time of this dictation. Her prothrombin time and ammonia levels were normal. PHYSICAL EXAMINATION: GENERAL: When I examined her this afternoon, she looked well and was clearly in no apparent respiratory distress, slightly pale, no jaundice, cyanosis, or thyromegaly. No jugular venous distension. No lower limb edema. VITAL SIGNS: Her heart rate was slightly up to 126, blood pressure was 133/96, temperature was 98.3, respiratory rate was 20 and oxygen saturation was 98% on room air. HEAD, EYES, EARS, NOSE AND THROAT: Showed normocephalic, atraumatic. NECK: Supple. HEART: Showed normal first and second heart sounds with no gallop, rub or murmur. CHEST: Clear to auscultation. No crepitation or rhonchi. ABDOMEN: Distended, soft, nontender. No guarding or rigidity. No organomegaly. Hernial orifice intact. Bowel sounds normal. NEUROLOGIC: She is awake, alert, and responding appropriately. All cranial nerves are intact. She moves extremities without difficulty. She ambulates without assistance or assistive devices. Her intake was 4389 and output was 3450. LABORATORY DATA: Her lab work this morning showed a white cell count of 8500, hemoglobin 11, hematocrit 33, MCV 92, and platelet count of 339,000. Her chemistry this morning showed a serum sodium of 139, potassium 3.1, chloride 107, bicarbonate 21, anion gap of 11, BUN 5, creatinine 1, estimated GFR was 73 mL per minute. Her glucose was 101, calcium was 7.9. Total bilirubin, AST, ALT were normal. Alkaline phosphatase was slightly elevated. Her ammonia level was less than 10. Her prothrombin time was 10 and INR of 1. Her total protein was 6.8, albumin was 2.4. The morning cortisol is still pending at the time of this dictation. ASSESSMENT: 1. Syncopal episode, likely due to dehydration, probably induced by diuretics and poor oral intake. 2. Hypokalemia. Potassium has risen to 3.9 and this morning came down to 3.1. 3. Acute kidney injury resolved. Her BUN and creatinine are down. 4. The patient has also autoimmune hepatitis and hypothyroidism. The patient's TSH is high at ____. She is on levothyroxine 50 mcg once a day. PLAN: My plan is to check her T3, T4, free T4; replenish her potassium tonight; work with physical and occupational therapy and evaluate her response. I will repeat all her labs tomorrow and if she remains stable, she can be discharged home. JACEY MC MD DR: MICHELLE/francisco javier JOB#: [id number] / [id number]
[2017-09-13] MEDS: BENZONATATE 100 MG CAPSULE. PO SCH (21:34)
[2017-09-13] MEDS: ZOLPIDEM 5 MG TABLET. PO SCH (21:35)
[2017-09-14] MEDS: oxyCODONE IR 5 MG TABLET PO SCH ×4 (00:07→12:27)
[2017-09-14] MEDS: LEVOTHYROXINE 50 MCG TABLET PO SCH (05:55)
[2017-09-14] MEDS: traMADol 50 MG TABLET PO SCH ×2 (05:56→14:05)
--- NOTE | 2017-09-14 06:01 | NUR ---
Pt accidentally removed IV while applying lotion to hands, catheter tip intact. Allowed RN to attempt x1 without success. Pt would not allow any further attempts. Dr. Pink notified, ordered to leave IV out.
[2017-09-14 06:03] VITALS: BP 117/69
[2017-09-14 06:04] VITALS: BP 128/97
[2017-09-14] MEDS: diphenhydrAMINE HCL 25 MG CAPSULE PO PRN (06:04)
[2017-09-14 06:06] VITALS: BP 125/88
[2017-09-14 06:53] LABS: ALBUMIN 2.7 g/dL (3.4-5.0); ALBUMIN/GLOBULIN RATIO 0.6 (1.0-1.7); CALCIUM 8.7 mg/dL (8.5-10.1); GFR 73.9; POTASSIUM 3.8 mmol/L (3.5-5.1); TOTAL BILIRUBIN 0.3 mg/dL (0.2-1.0); TOTAL PROTEIN 7.6 g/dL (6.4-8.2)
[2017-09-14] MEDS: MYCOPHENOLATE MOFETIL 250 MG CAPSULE PO SCH ×2 (08:48→12:27)
[2017-09-14] MEDS: URSODIOL 300 MG CAPSULE. PO SCH ×2 (08:49→14:05)
--- NOTE | 2017-09-14 09:49 | PDOC2 ---
CONSULT Date of Admission DATE: 09/14/17 TIME: 09:48 Reason for Consult: TIA Problem List Problems Medical Problems: (1) Dehydration Status: Acute (2) Hypokalemia Status: Acute (3) Vasovagal syncope Status: Acute History of Present Illness Ms Woodall is a 42 year old female who presented to the ED after a syncopal episode. She had apparently been lightheaded with getting up for a couple days. This became worse prior to coming to the hospital. She had gotten up to take her kids somewhere and while walking out to the car her lightheadedness became worse. she was attempting to unlock the door and stated her next memory was of waking up on the ground. she denies any biting of her tongue or loss of continence. She reports decreased oral intake due to a hiatal hernia and reflux symptoms. she reports some blurred vision during these episodes in her left eye but denies any loss of motor function, speech changes or facial drooping. She denies any chest pain, dyspnea or congestive symptoms. She does report generalized edema secondary to her liver disease if she forgets to take her diuretic and admits she has continued the diuretic despite low oral intake. Past Medical History Her past medical history is significant for autoimmune hepatitis. She also has hypothyroidism. Hiatal hernia, GERD. Past Surgical History PAST SURGICAL HISTORY: Significant for , umbilical hernia repair, left unilateral salpingo-oophorectomy, liver biopsy multiple times, She has also esophagogastroduodenoscopy. Family History FAMILY HISTORY: She has 3 brothers and 1 sister, all younger and healthy. Her father of myocardial infarction. Mother of sepsis. She did have Graves' disease. Social History SOCIAL HISTORY: She is , has 4 sons and 4 daughters. She does not smoke, drink alcohol or recreational drugs. She is a [id number] mom. Current Medications Current Medications Sodium Chloride 1,000 ml @ 1,000 mls/hr Q1H IV Last administered on 09/11/17at 17:38; Start 09/11/17 at 17:15; Stop 09/11/17 at 17:39; Status DC Potassium Chloride/Sodium Chloride 1,000 ml @ 500 mls/hr 1X ONCE IV Last administered on 09/11/17at 18:16; Start 09/11/17 at 18:00; Stop 09/11/17 at 18:26; Status DC Potassium Chloride (Klor-Con) 40 meq 1X ONCE PO Last administered on 09/11/17 18:14; Start 09/11/17 at 18:15; Stop 09/11/17 at 18:16; Status DC Potassium Chloride/Sodium Chloride 1,000 ml @ As Directed STK-MED ONCE IV ; Start 09/11/17 at 17:59; Stop 09/11/17 at 18:26; Status DC Potassium Chloride (Klor-Con) 40 meq 1X ONCE PO Last administered on 09/11/17at 19:36; Start 09/11/17 at 19:00; Stop 09/11/17 at 19:01; Status DC Sodium Chloride 1,000 ml @ 1,000 mls/hr 1X ONCE IV Last administered on at 20:17; Start 09/11/17 at 20:15; Stop 09/11/17 at 21:14; Status DC Ondansetron HCl (Zofran) 4 mg PRN Q4HRS PRN IV NAUSEA/VOMITING; Start 09/11/17 at 22:45; Stop 09/12/17 at 22:44; Status DC Sodium Chloride 1,000 ml @ 125 mls/hr Q8H IV Last administered on 09/12/17 20: 03; Start 09/11/17 at 22:45; Stop 09/12/17 at 22:44; Status DC Furosemide (Lasix) 20 mg DAILY PO Last administered on 09/12/17 08:07; Start at 09:00; Stop 09/12/17 at 12:36; Status DC Tramadol HCl (Ultram) 50 mg [id number] PO Last administered on 09/14/17 05:56; Start 09/12/17 at 06:00 Benzonatate (Tessalon Perle) 100 mg HS PO Last administered on 09/13/17at 21:34; Start 09/12/17 at 21:00 Levothyroxine Sodium (Synthroid) 50 mcg DAILY06 PO Last administered on 05:55; Start 09/12/17 at 06:00 Mycophenolate Mofetil (Cellcept) 250 mg QID PO Last administered on 09/14/17at 08 :48; Start 09/12/17 at 09:00 Oxycodone HCl (Roxicodone) 10 mg Q4HRS PO ; Start 09/12/17 at 04:00; Stop at 04:00; Status DC Ursodiol (Actigall) 300 mg BID PO Last administered on 09/12/17at 09:12; Start at 09:00; Stop 09/12/17 at 10:01; Status DC Zolpidem Tartrate (Ambien) 5 mg QHS PO Last administered on 09/13/17at 21:35; Start 09/12/17 at 21:00 Diphenhydramine HCl (Benadryl) 50 mg PRN Q6HRS PRN PO ITCHING Last administered on 09/14/17at 06:04; Start 09/12/17 at 01:45 Zolpidem Tartrate (Ambien) 5 mg PRN QHS PRN PO INSOMNIA; Start 09/12/17 at 21:00 Oxycodone HCl (Roxicodone) 10 mg Q4HRS PO Last administered on 09/14/17at 08:48; Start 09/12/17 at 02:00 Ursodiol (Actigall) 300 mg BID@0900,1400 PO Last administered on 09/14/17at 08:49 ; Start 09/12/17 at 14:00 Potassium Chloride (Klor-Con) 40 meq 1X ONCE PO Last administered on 09/13/17at 14:52; Start 09/13/17 at 14:15; Stop 09/13/17 at 14:19; Status DC Potassium Chloride (Klor-Con) 40 meq 1X ONCE PO ; Start 09/13/17 at 17:00; Stop 09/13/17 at 17:01; Status DC Potassium Chloride (Klor-Con) 40 meq 1X ONCE PO Last administered on 09/13/17at 16:05; Start 09/13/17 at 16:00; Stop 09/13/17 at 16:01; Status DC Active Scripts Active Reported Diphenhydramine Hcl 50 Mg Capsule 50 Mg PO PRN Zolpidem Tartrate 10 Mg Tablet 1 Tab PO QHS Ursodiol 300 Mg Capsule 300 Mg PO BID Cellcept (Mycophenolate Mofetil) 250 Mg Capsule 250 Mg PO QID Benzonatate 100 Mg Capsule 100 Mg PO HS Furosemide 20 Mg Tablet 1 Tab PO DAILY Oxycodone Hcl 10 Mg Tablet 10 Mg PO Q4HRS Levothyroxine Sodium 50 Mcg Tablet 1 Tab PO DAILY Tramadol Hcl (Tramadol HCl) 50 Mg Tablet 50 Mg PO [id number] Allergies: Coded Allergies: No Known Drug Allergies (Unverified , 08/15/17) Review of System as per HPI General: Alert, Oriented X3, Cooperative, No acute distress HEENT: Atraumatic, EOMI, Mucous membr. moist/pink Lungs: Clear to auscultation, Normal air movement Heart: Regular rate, Normal S1, Normal S2 Abdomen: Normal bowel sounds, Soft Extremities: No cyanosis, Normal pulses, Other (trace edema) Neuro: Normal speech, Strength at 5/5 X4 ext Psych/Mental Status: Mental status NL, Mood NL VITALS Vital Signs Date Time Temp Pulse Resp B/P (MAP) Pulse Ox O2 Delivery O2 Flow Rate FiO2 09/14/17 08:48 Room Air 09/14/17 06:06 112 125/88 (100) 09/14/17 05:56 18 97 09/13/17 23:12 97.4 Labs Laboratory Tests Test 09/13/17 05:55 09/13/17 17:10 09/13/17 17:27 09/14/17 06:10 Prothrombin Time 10.0 SEC (9.4-11.4) Prothromb Time International Ratio 1.0 (0.9-1.1) Sodium Level 139 mmol/L (136-145) 138 mmol/L (136-145) 136 mmol/L (136-145) Potassium Level 3.1 mmol/L (3.5-5.1) 4.3 mmol/L (3.5-5.1) 3.8 mmol/L (3.5-5.1) Chloride Level 107 mmol/L (98-107) 107 mmol/L (98-107) 104 mmol/L (98-107) Carbon Dioxide Level 21 mmol/L (21-32) 22 mmol/L (21-32) 26 mmol/L (21-32) Anion Gap 11 (6-14) 9 (6-14) 6 (6-14) Blood Urea Nitrogen 5 mg/dL (7-20) 7 mg/dL (7-20) 6 mg/dL (7-20) Creatinine 1.0 mg/dL (0.6-1.0) 1.0 mg/dL (0.6-1.0) 1.0 mg/dL (0.6-1.0) Estimated GFR (Cockcroft-Gault) 73.9 73.9 73.9 BUN/Creatinine Ratio 5 (6-20) 6 (6-20) Glucose Level 101 mg/dL (70-99) 79 mg/dL (70-99) 73 mg/dL (70-99) Calcium Level 7.9 mg/dL (8.5-10.1) 8.3 mg/dL (8.5-10.1) 8.7 mg/dL (8.5-10.1) Total Bilirubin 0.3 mg/dL (0.2-1.0) 0.3 mg/dL (0.2-1.0) Aspartate Amino Transf (AST/SGOT) 29 U/L (15-37) 30 U/L (15-37) Alanine Aminotransferase (ALT/SGPT) 26 U/L (14-59) 29 U/L (14-59) Alkaline Phosphatase 168 U/L (46-116) 200 U/L (46-116) Ammonia < 10 mcmol/L (11-34) Total Protein 6.8 g/dL (6.4-8.2) 7.6 g/dL (6.4-8.2) Albumin 2.4 g/dL (3.4-5.0) 2.7 g/dL (3.4-5.0) Albumin/Globulin Ratio 0.5 (1.0-1.7) 0.6 (1.0-1.7) Thyroid Stimulating Hormone (TSH) 17.629 uIU/mL (0.358-3.740) Cortisol AM Sample 6.86 ug/dL (4.3-22.4) Glucose (Fingerstick) 78 mg/dL (70-99) Images Tele - reactive sinus tachycardia CXR - IMPRESSION: 1. No confluent infiltrates. Head CT- IMPRESSION: 1. No acute intracranial findings. Assessment/Plan Syncope - most likely secondary to orthostasis and dehydration. Push fluids. Check echo for LV function. Suggest outpatient event monitoring. TIA - neuro consulted. echo with bubble study. Carotid duplex. autoimmune hepatitis per PCP hypothyroid - per PCP UBALDO NICHOLS [employer] Sep 14, 2017 09:49
--- NOTE | 2017-09-14 14:27 | CARD ---
MR#: [id number] Date of Study: 09/14/2017 Ordering Physician: BUALDO NICHOLS, Referring Physician: JACEY MC Tech: MICHAEL Darden APPROVED REPORT EXAM: Two-dimensional and M-mode echocardiogram with Doppler and color Doppler. Other Information Quality : GoodHR: 94bpm INDICATION CVA/TIA 2D DIMENSIONS Left Atrium(2D)3.5 (1.6-4.0cm)IVSd1.4 (0.7-1.1cm) Aortic Root(2D)3.0 (2.0-3.7cm)LVDd3.7 (3.9-5.9cm) LVOT Diameter2.2 (1.8-2.4cm)PWd1.4 (0.7-1.1cm) LVDs2.1 (2.5-4.0cm)FS (%) 43.3 % SV44.2 mlLVEF(%)75.2 (>50%) Aortic Valve AoV Peak Bereket.119.4cm/sAoV VTI21.5cm AO Peak GR.5.7mmHgLVOT Peak Bereket.94.8cm/s LVOT VTI 16.25cmAO Mean GR.3mmHg BOBO (VMAX)2.19mb7EXV (VTI)2.83cm2 Mitral Valve MV E Ugssvzdi53.6cm/sMV DECEL [id number] MV A Oxiaighg72.0cm/sE/A Ratio0.8 Pulmonary Valve PV Peak Waiaczjx16.1cm/sPV Peak Grad.3mmHg Tricuspid Valve TR P. Jbzloiut421bd/sRAP QLTOSEWL8epRu TR Peak Gr.94ikDvDRAV49qiXv LEFT VENTRICLE The left ventricle is normal size. There is mild to moderate concentric left ventricular hypertrophy. The left ventricular systolic function is normal and the ejection fraction is within normal range. E F 55% There is normal LV segmental wall motion. The left ventricular diastolic function and filling i s normal for age. RIGHT VENTRICLE The right ventricle is normal size. The right ventricular systolic function is normal. ATRIA The left atrium size is normal. The right atrium size is normal. The interatrial septum is intact wit h no evidence for an atrial septal defect or patent foramen ovale as noted on 2-D or Doppler imaging. AORTIC VALVE The aortic valve is normal in structure and function. Doppler and Color Flow revealed no significant aortic regurgitation. There is no significant aortic valvular stenosis. There is no aortic valvular v egetation. MITRAL VALVE The mitral valve is normal in structure and function. There is no evidence of mitral valve prolapse. There is no mitral valve stenosis. Doppler and Color-flow revealed trace mitral regurgitation. TRICUSPID VALVE The tricuspid valve leaflets are thickened , but open well. Doppler and Color Flow revealed trace tri cuspid regurgitation. There is no pulmonary hypertension. The PA pressure was estimated at 20 mmHg. T here is no tricuspid valve prolapse or vegetation. There is no tricuspid valve stenosis. PULMONIC VALVE The pulmonary valve is normal in structure and function. Doppler and Color Flow revealed no pulmonic valvular regurgitation. There is no pulmonic valvular stenosis. GREAT VESSELS The aortic root is normal in size. The IVC is normal in size and collapses >50% with inspiration. PERICARDIAL EFFUSION There is no pleural effusion. There is no evidence of significant pericardial effusion. Critical Notification Critical Value: No <Conclusion> The left ventricular systolic function is normal and the ejection fraction is within normal range. EF 55% There is normal LV segmental wall motion. Doppler and Color Flow revealed trace tricuspid regurgitation. There is no pulmonary hypertension. Th e PA pressure was estimated at 20 mmHg. Signed by : Pineda Maradiaga, Electronically Approved : 09/14/2017 14:26:37
--- NOTE | 2017-09-14 16:02 | NUR ---
Discharge Note: AMRIK ANTOINE Discharge instructions and discharge home medications reviewed with Patient and a copy given. All questions have been answered and understanding verbalized. The following instructions and handouts were given: education regarding dehydration and hypokalemia; discharge instructions Discontinued lines and drains: Peripheral IV intact. Patient discharged to Home or Self Care withSelfvia Wheelchair
[2017-09-14 18:10] LABS: THYROXINE 8.5 ug/dL (4.5-12.0)
--- NOTE | 2017-09-14 20:21 | DS ---
DATE OF DISCHARGE: 09/14/2017 HISTORY OF PRESENT ILLNESS: The patient is a 42-year-old -[place] female patient who was admitted originally with a syncopal episode. At that time, she apparently fell attempting to open her car and a helped her to the side of the road. When she arrived to the Emergency Room, her blood pressure was low at 75/47. Her potassium was low at 2.8, her BUN was 13 and creatinine was 1.4. The patient was treated with IV fluids and potassium supplement, and her lab work and blood pressure have normalized. In fact, she has had no further episode of postural hypertension, although she seemed to be very deconditioned and on exertion, her heart rate accelerates. However throughout her stay here, the patient has been very lethargic and sleepy, and she is on too many pain medications. She is in fact on 10 mg of oxycodone. She is also on tramadol 50 mg 3 times a day scheduled. She is on Ambien 5 mg at bedtime. She is on diphenhydramine 50 mg every 6 hours for itching. The only reason she is on all these pain medications is because she has autoimmune hepatitis, which should not really cause any pain. I actually spoke with Dr. Griffin, her primary care physician and said that he had last seen her the beginning of July and has had a long discussion about the amount of pain medication that she is taking and she basically left his office and went and saw another doctor, who put her medication back to where it was before. PHYSICAL EXAMINATION: GENERAL: When I examined her this afternoon, she was resting slightly propped up in bed, in no apparent respiratory distress. She was somewhat pale, but no jaundice, cyanosis, or thyromegaly. No jugular venous distension. No limb edema. VITAL SIGNS: Her heart rate was 83, blood pressure 113/83, temperature was 98.3, respiratory rate was 16 and oxygen saturation was 100% on room air. HEAD, EYES, EARS, NOSE AND THROAT: Normocephalic, atraumatic. NECK: Supple. HEART: Showed normal first and second sounds. No gallop, rub or murmur. CHEST: Shows central trachea, equal bilateral expansion, good air entry, vesicular sounds with no crepitation or rhonchi. ABDOMEN: Distended, soft, nontender. There is no guarding or rigidity. No organomegaly. Hernial orifice intact. Bowel sounds normal. NEUROLOGIC: She was very lethargic, drowsy throughout her stay in the hospital, although she is arousable. She opens her eyes and responds appropriately. She managed to walk to the bathroom on her own and we have had a lengthy discussion her to describe a day in her life at home and she seems to be sleeping most of the time there. Her intake over the last 24 hours was 4384, output was 3450. LABORATORY DATA: This morning showed a serum sodium 136, potassium 3.8, chloride 104, bicarbonate 26, anion gap of 6, BUN 6, creatinine 1, estimated GFR was 74 mL per minute. Her glucose was 73, calcium was 8.7. Total bilirubin, AST, ALT were normal. Alkaline phosphatase slightly elevated. Total protein was 7.6, albumin was 2.7. Her TSH was slightly high at 17.629 and morning cortisol was 6.86 with the normal range between 4.3 and 22.4. Her white cell count was 8500, hemoglobin 11, hematocrit 33, MCV 92, and platelet count of 339,000. Her prothrombin time and INR are within normal limits. DISCHARGE MEDICATIONS: She was discharged home to continue on following medications, benzonatate 100 mg at bedtime, diphenhydramine 50 mg 3 times a day, levothyroxine sodium 50 mcg once a day, mycophenolate mofetil for CellCept 250 mg 4 times a day, oxycodone 10 mg every 4 hours, tramadol 50 mg 3 times a day, ursodiol 300 mg twice a day, Ambien 10 mg at bedtime for insomnia. I recommended that the patient should weigh herself and if she gained more than 3 pounds, she can use her furosemide as when she came, she was definitely dehydrated, hypokalemic. I had a lengthy discussion with her about the amount of pain medication that she is on and that the diagnosis of autoimmune hepatitis not really warrant this amount of pain medication. FINAL DISCHARGE DIAGNOSES: 1. Syncopal episode, likely due to dehydration, probably induced by diuretics and poor oral intake. 2. Hypokalemia. Her potassium has improved from 2.8 to 3.9. 3. Acute kidney injury, resolved. Her BUN and creatinine have normalized. 4. The patient has also autoimmune hepatitis, for which she is on CellCept and ursodiol. 5. Hypothyroidism for which she is on 50 mcg once a day. I am not sure whether she is compliant with her Synthroid as her TSH is high at 17.6. I did check her T3, T4, free T4. Unfortunately, the results are still pending. Her morning cortisol was somewhat on the lower side. She has been on a huge amount of steroids for a long time for her autoimmune hepatitis. It was stopped about 6 months ago. She has had an echocardiogram done today and she will be discharged home with an event monitor. She was seen also by Dr. Farrell and will see him as an outpatient. JACEY MC MD DR: MICHELLE/francisco javier JOB#: [id number] / [id number]
== END 2017-09-14 16:04 | disposition home or self-care (01) | DRG 683 ==
LOC: ER 16:48 → 1 SOUTH 22:12
PROVIDERS: ADMIT Internal Medicine; ATTEND Internal Medicine
DX: N17.9 Acute kidney failure, unspecified (principal); G45.9 Transient cerebral ischemic attack, unspecified; E86.0 Dehydration; K75.4 Autoimmune hepatitis; E03.9 Hypothyroidism, unspecified; T50.2X5A Adverse effect of carbonic-anhydrase inhibitors, benzothiadiazides and other diuretics, initial encounter; K21.9 Gastro-esophageal reflux disease without esophagitis; E87.6 Hypokalemia; K44.9 Diaphragmatic hernia without obstruction or gangrene; W18.39XA Other fall on same level, initial encounter; Y93.89 Activity, other specified; Y92.89 Other specified places as the place of occurrence of the external cause; Y99.8 Other external cause status; Z82.49 Family history of ischemic heart disease and other diseases of the circulatory system; Z90.721 Acquired absence of ovaries, unilateral; Z83.1 Family history of other infectious and parasitic diseases; Z84.89 Family history of other specified conditions; Z79.899 Other long term (current) drug therapy
CPT/HCPCS: 36415; 70450; 71046; 80048; 80053; 81001; 81025; 82140; 82533; 82947; 84436; 84439; 84443; 84480; 85025; 85610; 87086; 93005; 93306; J7040; J7517; Q0163; 99285-25; J7030

== ENCOUNTER 2017-12-10 12:13 | Emergency (ER) | payer OTHER ==
[~2017-12-10] VITALS: Ht 152.4 cm; Wt 81.7 kg
[~2017-12-10 12:13] MED LIST changes: +BENZ-8 PO; +DIPH50CA PO; +MYCO250C PO; +ZOLP10TA4 PO
[2017-12-10 12:16] VITALS: BP 115/43
--- NOTE | 2017-12-10 12:32 | PHYS DOC ---
Past History Past Medical History: Liver Disease, Other Additional Past Medical Histor: autoimmune hepatitis Past Surgical History: No Surgical History Smoking: Non-smoker Alcohol Use: None Drug Use: None Adult General Chief Complaint Chief Complaint: NOSE FOREIGN BODY HPI HPI Patient is a 42-year-old -Maced[place] female presents to the emergency department for evaluation. She states that just prior to arrival, a small fly flew up her left nostril, and she thinks she has not yet been able to get it out. She denies any pain, she has tried scratching her nose to remove the insect but was unable to do so. She has no shortness of breath or any other complaints of pain at this time. Review of Systems Review of Systems Constitutional: Denies fever or chills [] Eyes: Denies change in visual acuity, redness, or eye pain [] HENT: Denies nasal congestion or sore throat [] Respiratory: Denies cough or shortness of breath [] Neurologic: Denies headache, focal weakness or sensory changes [] Allergies Allergies Allergies Coded Allergies Type Severity Reaction Last Updated Verified No Known Drug Allergies 08/15/17 No Physical Exam Physical Exam PHYSICAL EXAM: HEENT: Atruamatic. PERRL, EOMI, the nostrils appear normal bilaterally. There is no foreign body visualized in either nasal passage, the posterior pharynx is unremarkable. NECK: Supple, normal ROM, non-tender. CARDIAC: Regular Rate and Rhythm LUNGS: Clear Bilaterally EKG EKG [] Radiology/Procedures Radiology/Procedures [] Course & Med Decision Making Course & Med Decision Making I discussed the absence of visualized foreign body, biologic or otherwise, with the patient. Expectant management was discussed. Return precautions were discussed in detail. Dragon Disclaimer Dragon Disclaimer This electronic medical record was generated, in whole or in part, using a voice recognition dictation system. Departure Departure: Impression: Primary Impression: Foreign body in nose Disposition: 01 HOME, SELF-CARE Condition: STABLE Referrals: RAJINDER DODGE DO (PCP) Patient Instructions: Nasal Foreign Body KAELYN BURCH MD Dec 10, 2017 12:32
== END 2017-12-10 12:34 | disposition home or self-care (01) ==
LOC: ER 12:13
DX: T17.1XXA Foreign body in nostril, initial encounter (principal); X58.XXXA Exposure to other specified factors, initial encounter; Y93.89 Activity, other specified; Y92.89 Other specified places as the place of occurrence of the external cause; Y99.8 Other external cause status
CPT/HCPCS: 99281

== ENCOUNTER 2018-01-04 12:13 | Emergency (ER) | payer OTHER ==
[2018-01-04 12:53] LABS: BILIRUBIN,URINE NEG (NEG); CLARITY,URINE TURBID; COLOR,URINE RED; GLUCOSE,URINE NEG (NEG); NITRITE,URINE NEG (NEG); UROBILINOGEN,URINE 0.2 mg/dL (0.2 mg/dL)
[2018-01-04 12:54] LABS: BACTERIA,URINE MANY /HPF (0-FEW); RBC,URINE >40 /HPF (0-2); SQUAMOUS EPITHELIAL CELL,UR MOD /LPF; WBC,URINE >40 /HPF (0-4)
[2018-01-04] MEDS ORDERED: CEPH-264 PO (13:06)
[2018-01-04] MEDS ORDERED: PHEN100T82 PO (13:06)
[2018-01-04] MEDS ORDERED: PHENAZOPYRIDINE 100 MG TABLET. ONE (13:09)
[2018-01-04] MEDS ORDERED: PHENAZOPYRIDINE 200 MG TABLET. PO ONE (13:30)
--- NOTE | 2018-01-04 16:54 | ED.ADGEN ---
Past History Past Medical History: Kidney Infection, Liver Disease, UTI Additional Past Medical Histor: autoimmune hepatitis Past Surgical History: Tubal ligation Smoking: Non-smoker Alcohol Use: None Drug Use: None Adult General Chief Complaint Chief Complaint Dysuria HPI HPI Patient is a 42 -year-old Afro-Swedish female presents with urinary odor yesterday and increased urgency frequency and burning today. Ports low back pain. No flank pain. No nausea vomiting fever chills or sweats. No abdominal pain. No history of kidney stone No other acute symptoms or complaints. History of recurrent urinary tract infections. Patient has not been evaluated for symptoms prior to today's ED visit.[] Review of Systems Review of Systems ROS as per HPI All other systems were reviewed and found to be within normal limits, except as documented in this note. Current Medications Current Medications Current Medications Medications (Trade) Dose Ordered Sig/Erick Start Time Stop Time Status Last Admin Dose Admin Phenazopyridine HCl (Pyridium) 200 mg 1X ONCE 01/04/18 13:30 01/04/18 13:30 DC Allergies Allergies Allergies Coded Allergies Type Severity Reaction Last Updated Verified No Known Drug Allergies 08/15/17 No Physical Exam Physical Exam Constitutional: Well developed, well nourished, no acute distress, non-toxic appearance. [] HENT: Normocephalic, atraumatic, bilateral external ears normal, oropharynx moist, nose normal. [] Eyes: PERRLA, EOMI, conjunctiva normal, no discharge. [] Neck: Normal range of motion, no tenderness. [] Cardiovascular:Heart rate regular rhythm, no murmur. [] Lungs & Thorax: Bilateral breath sounds clear to auscultation [] Abdomen: Bowel sounds normal, soft, no tenderness. [] Skin: Warm, dry, no erythema. [] Back: No tenderness. [] Extremities: No tenderness. [] Neurologic: Alert and oriented X 3, normal motor function, normal sensory function, no focal deficits noted. [] Psychologic: Affect normal, judgement normal, mood normal. [] Current Patient Data Vital Signs Vital Signs Date Time Temp Pulse Resp B/P (MAP) Pulse Ox O2 Delivery O2 Flow Rate FiO2 01/04/18 12:45 97.7 88 16 97 Room Air Lab Results Laboratory Tests Test 01/04/18 12:30 Urine Collection Type Unknown Urine Color Red Urine Clarity Turbid Urine pH 6.0 Urine Specific [place] 1.010 Urine Protein 100 mg/dl (NEG-TRACE) Urine Glucose (UA) Neg mg/dL (NEG) Urine Ketones (Stick) Neg mg/dL (NEG) Urine Blood Large (NEG) Urine Nitrite Neg (NEG) Urine Bilirubin Neg (NEG) Urine Urobilinogen Dipstick 0.2 mg/dL (0.2 mg/dL) Urine Leukocyte Esterase Large (NEG) Urine RBC >40 /HPF (0-2) Urine WBC >40 /HPF (0-4) Urine Squamous Epithelial Cells Mod /LPF Urine Bacteria Many /HPF (0-FEW) EKG EKG [] Radiology/Procedures Radiology/Procedures [] Course & Med Decision Making Course & Med Decision Making Pertinent Labs and Imaging studies reviewed. (See chart for details) [Antibiotics, pain medication prescribed. Recommend close PCP follow-up urine culture result port of care. Return precautions reviewed.] Final Impression Final Impression [1. UTI] Dragon Disclaimer Dragon Disclaimer This electronic medical record was generated, in whole or in part, using a voice recognition dictation system. CECILIO CHAPIN DO Jan 04, 2018 16:54
== END 2018-01-04 13:15 | disposition home or self-care (01) ==
LOC: ER 12:13
DX: N39.0 Urinary tract infection, site not specified (principal); Z87.442 Personal history of urinary calculi; Z98.51 Tubal ligation status
CPT/HCPCS: 81001; 87086; 99284

== ENCOUNTER 2018-02-25 08:17 | Inpatient (IN) | payer OTHER ==
[~2018-02-25] VITALS: Ht 152.4 cm; Wt 88.1 kg
[~2018-02-25 08:17] MED LIST changes: +PHEN100T82 PO
[2018-02-25 09:16] LABS: BACTERIA,URINE MANY /HPF (0-FEW); BILIRUBIN,URINE NEG (NEG); CLARITY,URINE CLOUDY; COLOR,URINE YELLOW; GLUCOSE,URINE NEG (NEG); NITRITE,URINE POS (NEG); SQUAMOUS EPITHELIAL CELL,UR OCC /LPF; UROBILINOGEN,URINE 0.2 mg/dL (0.2 mg/dL); WBC,URINE >40 /HPF (0-4)
[2018-02-25 09:25] LABS: BASO # 0.1 x10^3/uL (0.0-0.2); BASO % 1 % (0-3); EOS # 0.1 x10^3/uL (0.0-0.7); EOS % 2 % (0-3); HEMATOCRIT 32.5 % (36.0-47.0); HEMOGLOBIN 10.6 g/dL (12.0-15.5); LYMPH # 1.9 x10^3/uL (1.0-4.8); LYMPH % 29 % (24-48); MEAN CORPUSCULAR HEMOGLOBIN 31 pg (25-35); MEAN CORPUSCULAR HGB CONC 33 g/dL (31-37); MEAN CORPUSCULAR VOLUME 94 fL (79-100); MONO # 0.5 x10^3/uL (0.0-1.1); MONO % 8 % (0-9); NEUT # 3.9 x10^3uL (1.8-7.7); NEUT % 60 % (31-73); PLATELET COUNT 322 x10^3/uL (140-400); RED BLOOD COUNT 3.45 x10^6/uL (3.50-5.40); RED CELL DISTRIBUTION WIDTH 13.7 % (11.5-14.5); WHITE BLOOD COUNT 6.4 x10^3/uL (4.0-11.0)
--- NOTE | 2018-02-25 09:30 | RAD ---
EXAM: PA and Lateral Views of the Chest DATE: 02/25/2018 9:20 AM INDICATION: fever and weakness x 1 day, pt shielded COMPARISON: No Prior FINDINGS/ IMPRESSION: The heart is not enlarged. Mediastinal and hilar contours are normal. Blunting of the right costophrenic angle suggests trace right pleural effusion or pleural thickening. Linear opacities right lung base likely subsegmental atelectasis. No lobar consolidation. No pneumothorax. Electronically signed by: Sivakumar Turpin MD (02/25/2018 9:27 AM) [facility]
[2018-02-25 09:38] LABS: ALBUMIN/GLOBULIN RATIO 0.7 (1.0-1.7); CALCIUM 8.4 mg/dL (8.5-10.1); CREATININE 1.4 mg/dL (0.6-1.0); GFR 50.1; TOTAL BILIRUBIN 0.2 mg/dL (0.2-1.0); TOTAL PROTEIN 7.6 g/dL (6.4-8.2)
[2018-02-25 09:43] LABS: INFLUENZA A PATIENT NEGATIVE (NEGATIVE); INFLUENZA B PATIENT NEGATIVE (NEGATIVE)
[2018-02-25] MEDS ORDERED: cefTRIAXone SODIUM 1 GM VIAL IV ONE (09:46)
--- NOTE | 2018-02-25 09:56 | PHYS DOC ---
Past History Past Medical History: Kidney Infection, Liver Disease, UTI Additional Past Medical Histor: autoimmune hepatitis Past Surgical History: Cholecystectomy, Tubal ligation Smoking: Non-smoker Alcohol Use: None Drug Use: None Adult General Chief Complaint Chief Complaint: FEVER HPI HPI Patient is a 42 year old female who presents with complaining of fever. Patient complaining of temperature of 102 yesterday and 100 today with suprapubic abdominal pain that started yesterday as a constant pain. Patient denies cough and congestion, urinary symptoms, diarrhea and constipation. Patient states she has chronic flank pain related to autoimmune hepatitis. Patient states she had history of frequent UTI and had 3 episodes of UTI last month and still has foul smells urine. Patient had blood pressure was 90/6 at arrival to ER and states she has history of hospitalization because of low blood pressure previously. Review of Systems Review of Systems Constitutional: Reports fever Eyes: Denies change in visual acuity, redness, or eye pain [] HENT: Denies nasal congestion or sore throat [] Respiratory: Denies cough or shortness of breath [] Cardiovascular: No additional information not addressed in HPI [] GI: Reports abdominal pain, nausea, denies vomiting, bloody stools or diarrhea [ ] : Denies dysuria or hematuria [] Musculoskeletal: Denies back pain or joint pain [] Integument: Denies rash or skin lesions [] Neurologic: Denies headache, focal weakness or sensory changes [] Endocrine: Denies polyuria or polydipsia [] All other systems were reviewed and found to be within normal limits, except as documented in this note. Current Medications Current Medications Current Medications Medications (Trade) Dose Ordered Sig/Erick Start Time Stop Time Status Last Admin Dose Admin Ceftriaxone Sodium 1 gm/ Sodium Chloride 50 ml @ 100 mls/hr 1X ONCE 02/25/18 09:45 02/25/18 10:14 UNV Ceftriaxone Sodium (Rocephin) 1 gm STK-MED ONCE 02/25/18 09:46 02/25/18 09:47 DC Allergies Allergies Allergies Coded Allergies Type Severity Reaction Last Updated Verified No Known Drug Allergies 08/15/17 No Physical Exam Physical Exam Constitutional: Well developed, well nourished, mild distress, non-toxic appearance, afebrile. [] HENT: Normocephalic, atraumatic, oropharynx moist, no oral exudates, nose normal. [] Eyes: PERRLA, EOMI, conjunctiva normal, no discharge. [] Neck: Normal range of motion, no tenderness, supple, no stridor. [] Cardiovascular:Heart rate regular rhythm, no murmur [] Lungs & Thorax: Bilateral breath sounds clear to auscultation [] Abdomen: Bowel sounds normal, soft, no tenderness, no masses, no pulsatile masses. [] Skin: Warm, dry, no erythema, no rash. [] Back: No tenderness, no CVA tenderness. [] Extremities: No tenderness, no cyanosis, no clubbing, ROM intact, no edema. [] Neurologic: Alert and oriented X 3, normal motor function, normal sensory function, no focal deficits noted. [] Psychologic: Affect normal, judgement normal, mood normal. [] Current Patient Data Vital Signs Vital Signs Date Time Temp Pulse Resp B/P (MAP) Pulse Ox O2 Delivery O2 Flow Rate FiO2 02/25/18 08:49 100 Room Air 02/25/18 08:39 97.9 74 20 Lab Results Laboratory Tests Test 02/25/18 08:34 02/25/18 08:51 02/25/18 09:00 Urine Collection Type Unknown Urine Color Yellow Urine Clarity Cloudy Urine pH 7.5 Urine Specific Ashby 1.020 Urine Protein 30 mg/dl (NEG-TRACE) Urine Glucose (UA) Neg mg/dL (NEG) Urine Ketones (Stick) Trace mg/dL (NEG) Urine Blood Small (NEG) Urine Nitrite Pos (NEG) Urine Bilirubin Neg (NEG) Urine Urobilinogen Dipstick 0.2 mg/dL (0.2 mg/dL) Urine Leukocyte Esterase Mod (NEG) Urine RBC 3-5 /HPF (0-2) Urine WBC >40 /HPF (0-4) Urine Squamous Epithelial Cells Occ /LPF Urine Bacteria Many /HPF (0-FEW) Influenza Type A (Rapid) Negative (NEGATIVE) Influenza Type B (Rapid) Negative (NEGATIVE) White Blood Count 6.4 x10^3/uL (4.0-11.0) Red Blood Count 3.45 x10^6/uL (3.50-5.40) L Hemoglobin 10.6 g/dL (12.0-15.5) L Hematocrit 32.5 % (36.0-47.0) L Mean Corpuscular Volume 94 fL (79-100) Mean Corpuscular Hemoglobin 31 pg (25-35) Mean Corpuscular Hemoglobin Concent 33 g/dL (31-37) Red Cell Distribution Width 13.7 % (11.5-14.5) Platelet Count 322 x10^3/uL (140-400) Neutrophils (%) (Auto) 60 % (31-73) Lymphocytes (%) (Auto) 29 % (24-48) Monocytes (%) (Auto) 8 % (0-9) Eosinophils (%) (Auto) 2 % (0-3) Basophils (%) (Auto) 1 % (0-3) Neutrophils # (Auto) 3.9 x10^3uL (1.8-7.7) Lymphocytes # (Auto) 1.9 x10^3/uL (1.0-4.8) Monocytes # (Auto) 0.5 x10^3/uL (0.0-1.1) Eosinophils # (Auto) 0.1 x10^3/uL (0.0-0.7) Basophils # (Auto) 0.1 x10^3/uL (0.0-0.2) Prothrombin Time 9.3 SEC (9.4-11.4) L Prothrombin Time INR 0.9 (0.9-1.1) Sodium Level 136 mmol/L (136-145) Potassium Level 4.0 mmol/L (3.5-5.1) Chloride Level 102 mmol/L (98-107) Carbon Dioxide Level 29 mmol/L (21-32) Anion Gap 5 (6-14) L Blood Urea Nitrogen 11 mg/dL (7-20) Creatinine 1.4 mg/dL (0.6-1.0) H Estimated GFR (Cockcroft-Gault) 50.1 BUN/Creatinine Ratio 8 (6-20) Glucose Level 114 mg/dL (70-99) H Lactic Acid Level 1.4 mmol/L (0.4-2.0) Calcium Level 8.4 mg/dL (8.5-10.1) L Total Bilirubin 0.2 mg/dL (0.2-1.0) Aspartate Amino Transferase (AST) 26 U/L (15-37) Alanine Aminotransferase (ALT) 28 U/L (14-59) Alkaline Phosphatase 210 U/L (46-116) H Total Protein 7.6 g/dL (6.4-8.2) Albumin 3.0 g/dL (3.4-5.0) L Albumin/Globulin Ratio 0.7 (1.0-1.7) L EKG EKG [] Radiology/Procedures Radiology/Procedures [address] [address] IMAGING REPORT Signed PATIENT: AMRIK ANTOINE ACCOUNT: [id number] : 1975 LOCATION: ER AGE: 42 SEX: F EXAM STATUS: REG ER ORD. PHYSICIAN: JOY CHAPMAN MD REASON: fever PROCEDURE: CHEST PA & LATERAL EXAM: PA and Lateral Views of the Chest DATE: 02/25/2018 9:20 AM INDICATION: fever and weakness x 1 day, pt shielded COMPARISON: No Prior FINDINGS/ IMPRESSION: The heart is not enlarged. Mediastinal and hilar contours are normal. Blunting of the right costophrenic angle suggests trace right pleural effusion or pleural thickening. Linear opacities right lung base likely subsegmental atelectasis. No lobar consolidation. No pneumothorax. Electronically signed by: Sivakumar Arnold MD (02/25/2018 9:27 AM) [facility] DICTATED AND SIGNED BY: SIVAKUMAR ARNOLD MD DATE: 02/25/18925 CC: RAJINDER DODGE DO; JOY CHAPMAN MD ~ Course & Med Decision Making Course & Med Decision Making Pertinent Labs and Imaging studies reviewed. (See chart for details) Evaluation of patient in ER showed 42-year-old female patient with complaining of fever and appropriate with pain since yesterday. Patient was afebrile in ER and had non-tender abdomen in exam. Had blood pressure of 90/60 at arrival to increased to 98/60s without IV fluid. Patient did not have leukocytosis, fever, confusion. UA showed UTI. Because of history of hepatitic disease and hypertension plan to admit patient for IV fluid and antibiotic treatment. Dr. Pink accepted admission at 0950. Dragon Disclaimer Dragon Disclaimer This electronic medical record was generated, in whole or in part, using a voice recognition dictation system. Departure Departure: Impression: Primary Impression: Recurrent UTI Additional Impressions: Autoimmune hepatitis Renal insufficiency Anemia Disposition: ADMITTED INPATIENT (at 0951) Admitting Physician: Adina Pink (accepted admission at 0950) Condition: IMPROVED Referrals: RAJINDER DODGE DO (PCP) Problem Qualifiers JOY CHAPMAN MD Feb 25, 2018 09:56
[2018-02-25] MEDS ORDERED: cefTRIAXone IV Push 1 GM VIAL. IVP ONE (10:15)
[2018-02-25] MEDS ORDERED: IV NORMAL SALINE 1,000ML 1,000 ML IV ONE (10:30)
[2018-02-25 11:46] VITALS: BP 112/75
--- NOTE | 2018-02-25 14:31 | HP ---
ADMIT DATE: 02/25/2018 HISTORY OF PRESENT ILLNESS: The patient is a 42-year-old -Iranian female patient, who came to the Emergency Room complaining of fever with temperature up to 100 degrees Fahrenheit with suprapubic abdominal pain that started yesterday. She denied any cough or congestion. She did complain of dysuria, frequency, but denied any hematuria. Denied any diarrhea or constipation. She stated that she has chronic right flank pain due to autoimmune hepatitis. She does have a history of UTIs and had 3 episodes of UTI last month and continued to have foul smell urine. Her blood pressure on arrival was only 90/60 and she was admitted before with hypotension. She was extensively evaluated in the Emergency Room and has had lab work, which showed that her urine was yellow, cloudy with a pH of 7.5. The urine was positive for nitrites and leukocytes. There is more than 40 wbc's in high power field. There is only 3-5 rbc's, and large amount of leukocyte esterase and too many bacteria and was treated with IV Rocephin. PAST MEDICAL HISTORY: Significant for autoimmune hepatitis as well as hypothyroidism. PAST SURGICAL HISTORY: Significant for , umbilical hernia repair, left unilateral salpingo-oophorectomy, liver biopsy multiple times. She has also esophagogastroduodenoscopy. ALLERGIES: She has no known drug allergies. MEDICATIONS: She is currently on following medications: She is on diphenhydramine 50 mg p.o. daily p.r.n. for itching. She is on oxycodone 10 mg p.o. q.4 hourly, tramadol 50 mg 3 times a day, Ambien 10 mg at bedtime, benzonatate 500 mg at bedtime, ursodiol 300 mg twice a day, levothyroxine sodium 50 mcg once a day, phenazopyridine for Pyridium 100 mg 3 times a day, mycophenolate mofetil 250 mg 4 times a day. FAMILY HISTORY: She has 3 brothers and 1 sister, all younger and healthy. Her father of myocardial infarction. Mother of sepsis. She did have Graves' disease. SOCIAL HISTORY: She is , has 4 sons and 4 daughters. She does not smoke, drink alcohol and recreational drugs. 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 REVIEW OF SYSTEMS: The patient denied any blurring of vision, cataract, glaucoma or macular degeneration. Denied any earache, tinnitus or sensorineural deafness. Denied any nosebleeds, stuffy nose or postnasal drip. Denied any sore throat, sore tongue, toothache, hoarseness of voice or difficulty swallowing. She denied any nausea, vomiting, diarrhea or constipation. Denied any hematemesis, melena, or hematochezia. Did complain of dysuria, frequency as well as hematuria. Denied any chest pain, shortness of breath, orthopnea or paroxysmal nocturnal dyspnea. Denied any cough, phlegm or hemoptysis. PHYSICAL EXAMINATION: GENERAL: On arrival to the Emergency Room, she looked well and was clearly in no apparent respiratory distress. Slightly pale, but no jaundice, cyanosis, or thyromegaly. No lymphadenopathy. No jugular venous distension. No lower limb edema. VITAL SIGNS: Her heart rate was 70, blood pressure was 112/75, temperature was 97.5, respiratory rate was 20, and oxygen saturation was 98% on room air. HEAD, EYES, EARS, NOSE AND THROAT: Showed normocephalic, atraumatic. NECK: Supple. HEART: Showed normal first and second sounds. No gallop, rub or murmur. CHEST: Clear to auscultation. No crepitation or rhonchi. ABDOMEN: Distended, soft, nontender. No guarding or rigidity. No organomegaly. All hernial orifice intact. Bowel sounds normal. NEUROLOGIC: She was awake, alert, responding appropriately. All cranial nerves intact. She moves extremities without difficulty. LABORATORY DATA: She did have lab work done in the Emergency Room, which showed a white cell count of 6400, hemoglobin 10.6, hematocrit 32.5, MCV 94 and platelet count of 322,000. Her chemistry showed a serum sodium 136, potassium 4, chloride 102, bicarbonate 29, anion gap of 5, BUN 11, creatinine 1.4, estimated GFR was 50 mL per minute. Her glucose was 114, lactic acid is 1.4, calcium was 8.4. Total bilirubin, AST, ALT are normal. Alkaline phosphatase was high at 210. Total protein was 7.6, albumin 3. Prothrombin time was 9.3, INR was 0.9. Urinalysis showed the urine was yellow, cloudy with a pH of 7.5, specific gravity of 1.020. There was small amount of protein, negative for glucose, trace of ketones, small amount of blood, positive for nitrites and leukocyte esterase. There are 3-5 rbc's, more than 40 wbc's and too many bacteria. Her influenza A and B were negative. ASSESSMENT: In summary, this is a 42-year-old -Iranian female patient, who was admitted with fever and was found to have features suggestive of UTI. She is known to have underlying autoimmune hepatitis as well as hypothyroidism. Her urine was sent for culture and sensitivity. She is now on Rocephin. We will continue with IV Rocephin on a daily basis and await the results of culture and sensitivity. JACEY MC MD DR: MICHELLE/francisco javier JOB#: [id number] / [id number]
[2018-02-25] MEDS: PHENAZOPYRIDINE 100 MG TABLET. PO SCH ×2 (15:01→21:18)
[2018-02-25] MEDS: traMADol 50 MG TABLET PO SCH ×2 (15:02→23:07)
[2018-02-25] MEDS: oxyCODONE IR 5 MG TABLET PO PRN (15:02)
[2018-02-25 15:58] VITALS: BP 105/72
[2018-02-25] MEDS ORDERED: MYCOPHENOLATE MOFETIL 250 MG CAPSULE PO SCH (17:00)
[2018-02-25] MEDS: URSODIOL 300 MG CAPSULE. PO SCH (17:19)
[2018-02-25 19:53] VITALS: BP 113/74
[2018-02-25] MEDS: diphenhydrAMINE HCL 25 MG CAPSULE PO PRN (20:32)
[2018-02-25] MEDS ORDERED: URSODIOL 300 MG CAPSULE. PO SCH (21:00)
[2018-02-25] MEDS: ZOLPIDEM 5 MG TABLET. PO SCH (21:18)
[2018-02-25] MEDS: BENZONATATE 100 MG CAPSULE. PO SCH (21:18)
[2018-02-25 22:50] VITALS: BP 123/84
[2018-02-26] MEDS: LEVOTHYROXINE 50 MCG TABLET PO SCH (05:13)
[2018-02-26] MEDS: traMADol 50 MG TABLET PO SCH ×3 (05:14→20:52)
[2018-02-26 05:52] VITALS: BP 116/60
[2018-02-26 06:20] LABS: BASO % 1 % (0-3); EOS # 0.1 x10^3/uL (0.0-0.7); EOS % 3 % (0-3); HEMATOCRIT 33.4 % (36.0-47.0); HEMOGLOBIN 10.7 g/dL (12.0-15.5); LYMPH # 2.4 x10^3/uL (1.0-4.8); LYMPH % 47 % (24-48); MEAN CORPUSCULAR HEMOGLOBIN 31 pg (25-35); MEAN CORPUSCULAR HGB CONC 32 g/dL (31-37); MEAN CORPUSCULAR VOLUME 95 fL (79-100); MONO # 0.4 x10^3/uL (0.0-1.1); MONO % 9 % (0-9); NEUT # 2.2 x10^3uL (1.8-7.7); NEUT % 41 % (31-73); PLATELET COUNT 318 x10^3/uL (140-400); RED BLOOD COUNT 3.52 x10^6/uL (3.50-5.40); RED CELL DISTRIBUTION WIDTH 13.5 % (11.5-14.5); WHITE BLOOD COUNT 5.2 x10^3/uL (4.0-11.0)
[2018-02-26 06:32] LABS: ALBUMIN 2.8 g/dL (3.4-5.0); ALBUMIN/GLOBULIN RATIO 0.6 (1.0-1.7); CALCIUM 8.3 mg/dL (8.5-10.1); CREATININE 1.3 mg/dL (0.6-1.0); GFR 54.6; POTASSIUM 3.8 mmol/L (3.5-5.1); TOTAL BILIRUBIN 0.2 mg/dL (0.2-1.0); TOTAL PROTEIN 7.2 g/dL (6.4-8.2)
[2018-02-26] MEDS: oxyCODONE IR 5 MG TABLET PO PRN (08:44)
[2018-02-26] MEDS: PHENAZOPYRIDINE 100 MG TABLET. PO SCH ×3 (08:44→20:52)
[2018-02-26] MEDS: URSODIOL 300 MG CAPSULE. PO SCH ×2 (09:00→16:22)
[2018-02-26] MEDS: diphenhydrAMINE HCL 25 MG CAPSULE PO PRN (10:12)
[2018-02-26 10:58] VITALS: BP 112/77
[2018-02-26 12:13] VITALS: BP_SYST 104; BP_SYST 108; BP_SYST 120; BP_DIAS 71; BP_DIAS 85; BP_DIAS 87
[2018-02-26] MEDS: IBUPROFEN 600 MG TABLET. PO PRN (12:51)
[2018-02-26 14:56] VITALS: BP 101/67
[2018-02-26 19:58] VITALS: BP 106/74
[2018-02-26] MEDS: BENZONATATE 100 MG CAPSULE. PO SCH (20:51)
[2018-02-26] MEDS: LACTOBACILLUS RHAMNOSUS GG 1 CAPSULE. PO SCH (20:51)
[2018-02-26] MEDS: ZOLPIDEM 5 MG TABLET. PO SCH (20:52)
--- NOTE | 2018-02-26 20:59 | PN ---
DATE: 02/26/2018 SUBJECTIVE: The patient is resting slightly propped up in bed, no apparent distress, complaining of severe headache that has not responded to her oxycodone. Denied any nausea or vomiting. Denied any blurring of vision. She also complained of dizziness, but we did check her orthostatic and there is no orthostatic hypotension. PHYSICAL EXAMINATION: GENERAL: When I examined her, she looked well and was clearly in no apparent respiratory distress. No pallor, jaundice, cyanosis, or thyromegaly. No jugular venous distension. No lower limb edema. VITAL SIGNS: Her heart rate was 73, blood pressure was 112/77, temperature was 98, respiratory rate 20, and oxygen saturation was 97%. HEAD, EYES, EARS, NOSE, AND THROAT: She is normocephalic, atraumatic. NECK: Supple. HEART: Showed normal first and second heart sounds with no gallop, rub, or murmur. CHEST: Clear to auscultation. No crepitation or rhonchi. ABDOMEN: Distended, soft, nontender. No guarding or rigidity. No organomegaly. Bowel sounds are normal. NEUROLOGIC: She is awake, alert, responding appropriately. Cranial nerves intact. She moves extremities without difficulty. Her intake over the last 24 hours was 560, output was 600. LABORATORY DATA: Her lab work this morning showed a white cell count 5200, hemoglobin 11, hematocrit 33, MCV 95, platelet count of 318,000. Her chemistry showed that her serum sodium was 137, potassium 3.8, chloride 102, bicarbonate 27, anion gap of 8, BUN is 11, creatinine 1.3, estimated GFR was 54 mL per minute, her glucose was 100, calcium was 8.3. Total bilirubin, AST, ALT were normal. Alkaline phosphatase was 191. Ammonia was only 10. Total protein was 7.2, albumin 2.8. Her prothrombin time was 9.3, INR 0.9. ASSESSMENT: 1. Urinary tract infection for which she is on IV Rocephin. The urine culture and sensitivity is still pending at the time of this dictation. 2. Autoimmune hepatitis, for which she is on mycophenolate. 3. Hypothyroidism, for which she is on Synthroid. 4. Severe headache, for which we will start her on ibuprofen with food. We will await obviously the result of the urine culture and sensitivity and hopefully if it becomes available tomorrow, then discharge her home to continue with oral antibiotics. JACEY MC MD DR: MICHELLE/francisco javier JOB#: [id number] / [id number]
[2018-02-26 23:14] VITALS: BP 123/85
[2018-02-27] MEDS: oxyCODONE IR 5 MG TABLET PO PRN ×3 (03:54→19:21)
[2018-02-27] MEDS: diphenhydrAMINE HCL 25 MG CAPSULE PO PRN ×3 (04:03→19:21)
[2018-02-27 05:46] VITALS: BP 109/78
[2018-02-27] MEDS: LEVOTHYROXINE 50 MCG TABLET PO SCH (05:47)
[2018-02-27] MEDS: traMADol 50 MG TABLET PO SCH ×3 (05:48→21:12)
[2018-02-27] MEDS: LACTOBACILLUS RHAMNOSUS GG 1 CAPSULE. PO SCH ×2 (08:27→21:00)
[2018-02-27] MEDS: URSODIOL 300 MG CAPSULE. PO SCH ×2 (08:27→16:22)
[2018-02-27] MEDS: PHENAZOPYRIDINE 100 MG TABLET. PO SCH ×3 (08:27→20:47)
[2018-02-27 11:16] VITALS: BP 116/75
[2018-02-27] MEDS: COLESTIPOL HCL 1 GM TABLET PO SCH ×3 (13:11→22:55)
[2018-02-27] MEDS: IBUPROFEN 600 MG TABLET. PO PRN (16:06)
[2018-02-27 20:13] VITALS: BP 127/85
[2018-02-27] MEDS: ZOLPIDEM 5 MG TABLET. PO SCH (20:47)
[2018-02-27] MEDS: BENZONATATE 100 MG CAPSULE. PO SCH (20:47)
[2018-02-27] MEDS: DOCUSATE SODIUM 100 MG CAPSULE PO SCH (20:47)
[2018-02-27] MEDS ORDERED: ONDANSETRON PF 4 MG/2 ML VIAL. ONE (20:54)
--- NOTE | 2018-02-27 22:03 | PN ---
DATE: 02/27/2018 SUBJECTIVE: The patient is a 42-year-old -Maced[place] female patient who was admitted with dysuria, frequency and was admitted due to urinary tract infection. She is known to have autoimmune hepatitis as well as hypothyroidism. She has complained yesterday of severe headache, which has apparently resolved. Today, her main complaint is generalized pruritus despite treatment with Benadryl. PHYSICAL EXAMINATION: GENERAL: When I examined her today, she looked well and was clearly in no apparent respiratory distress. No pallor, jaundice, cyanosis, or thyromegaly. No jugular venous distension. No lower limb edema. VITAL SIGNS: Her heart rate was 85, blood pressure was 116/75, temperature was 97.9, respiratory rate was 18, and oxygen saturation was 98%. HEENT: Examination of the head, eyes, ears, nose and throat showed normocephalic, atraumatic. NECK: Supple. HEART: Showed normal first and second heart sounds with no gallop, rub or murmur. CHEST: Clear to auscultation. No crepitation or rhonchi. ABDOMEN: Distended, soft, nontender. No guarding or rigidity. No organomegaly. Her hernial orifices are intact and bowel sounds normal. NEUROLOGIC: She was awake, alert, responding appropriately. Her cranial nerves are intact. She moves and ambulates without assistance or assistive devices. Her intake over the last 24 hours was 800, output was 450. LABORATORY DATA: Lab work as of yesterday showed her white cell count of 5000, hemoglobin 11, hematocrit 33, MCV 95, and platelet count 318,000. Her chemistry showed a serum sodium 137, potassium 3.8, chloride 102, bicarbonate 27, anion gap of 8, BUN 11, creatinine 1.3. Her prothrombin time was 9.3, INR of 0.9. Her blood culture was so far negative. Her urine culture has grown more than 100,000 colony forming units per mL of the Escherichia coli. ASSESSMENT: 1. Urinary tract infection growing more than 100,000 colony forming units per mL of Escherichia coli for which she is on IV Rocephin. The sensitivity is still pending at the time of this dictation. 2. Autoimmune hepatitis for which she is on mycophenolate. 3. Hypothyroidism for which she is on Synthroid. 4. Generalized pruritus, likely side effect of her narcotics, although pruritus ____ acid retention can be contributory for which I did start her colestipol 1 gram twice a day. The patient will be discharged home tomorrow if her culture and ____ sensitivity becomes available. JACEY MC MD DR: MICHELLE/francisco javier JOB#: [id number] / [id number]
[2018-02-27] MEDS ORDERED: ONDANSETRON PF 4 MG/2 ML VIAL. IV PRN (23:00)
[2018-02-27 23:12] VITALS: BP 107/69
[2018-02-28] MEDS: oxyCODONE IR 5 MG TABLET PO PRN ×2 (01:58→11:05)
[2018-02-28] MEDS: LEVOTHYROXINE 50 MCG TABLET PO SCH (05:08)
[2018-02-28] MEDS: traMADol 50 MG TABLET PO SCH ×3 (05:08→14:10)
[2018-02-28 06:00] VITALS: BP 125/83
[2018-02-28 06:53] LABS: CALCIUM 8.3 mg/dL (8.5-10.1); CREATININE 1.2 mg/dL (0.6-1.0); GFR 59.9; POTASSIUM 3.8 mmol/L (3.5-5.1)
[2018-02-28] MEDS: DOCUSATE SODIUM 100 MG CAPSULE PO SCH (08:54)
[2018-02-28] MEDS: PHENAZOPYRIDINE 100 MG TABLET. PO SCH ×3 (08:54→14:10)
[2018-02-28] MEDS: URSODIOL 300 MG CAPSULE. PO SCH (08:54)
[2018-02-28] MEDS: IBUPROFEN 600 MG TABLET. PO PRN (08:55)
[2018-02-28] MEDS: LACTOBACILLUS RHAMNOSUS GG 1 CAPSULE. PO SCH (08:55)
[2018-02-28] MEDS ORDERED: POLYETHYLENE GLYCOL 3350 17 GM PACKET. PO SCH (09:00)
[2018-02-28 10:44] VITALS: BP 116/83
[2018-02-28] MEDS: COLESTIPOL HCL 1 GM TABLET PO SCH (11:05)
--- NOTE | 2018-02-28 13:38 | DS ---
DATE OF DISCHARGE: 02/28/2018 HOSPITAL COURSE: The patient is a 42-year-old -Ivorian female patient, who was admitted with a complaint of flank pain, dysuria, frequency and was diagnosed with urinary tract infection. We started empirically on IV Rocephin and her urine culture has grown more than 100,000 colony forming units per mL of Escherichia coli sensitive to almost all antibiotics. She remained hemodynamically stable, afebrile. Her white cell count was normal. Decision was made to discharge her home to continue on oral antibiotic to finish the course of treatment. She did complain of generalized pruritus when she was here, although she was on Benadryl she continued to have itching and we did start her on apparently that helped her pruritus and she will be discharged with a prescription for that. PHYSICAL EXAMINATION: GENERAL: When I examined her today, she looked well and was clearly in no apparent respiratory distress. She was slightly pale, but no jaundice, cyanosis, or thyromegaly. No jugular venous distension. No lower limb edema. VITAL SIGNS: Her heart rate was 90, blood pressure was 116/83, temperature was 98.3, respiratory rate was 18 and oxygen saturation was 97%. The rest of clinical examination is unremarkable. LABORATORY DATA: Showed her white cell count was 5200, hemoglobin 11, hematocrit 33, MCV 95, and platelet count of 318,000. Serum sodium was 136, potassium 3.8, chloride 102, bicarbonate 28, anion gap of 6, BUN 9, creatinine 1.2, estimated GFR was 60 mL per minute. Her glucose was 86, calcium was 8.3. Her ammonia was less than 10. Her chemistry showed a serum sodium 136, potassium 3.8, chloride 102, bicarbonate 28, anion gap of 6, BUN 9, creatinine 1.2, estimated GFR was 60 mL per minute. Her glucose 86, calcium was 8.3. Her prothrombin time was 9.3, INR of 0.9. Her influenza A and B were negative and her blood cultures were negative; however, her urine culture has grown more than 100,000 colony forming units per mL of Escherichia coli sensitive to all antibiotics. DISCHARGE MEDICATIONS: The patient will be discharged home on following medications; benzonatate 100 mg at bedtime, diphenhydramine 50 mg p.o. daily p.r.n. for itching, levothyroxine sodium 50 mcg once a day, mycophenolate for CellCept 250 mg 4 times a day, oxycodone 10 mg every 4 hours, phenazopyridine for Pyridium 100 mg 3 times a day, tramadol 50 mg 3 times a day, ursodiol 300 mg twice a day, Ambien 10 mg at bedtime. She will also be discharged on cefuroxime 500 mg twice a day for 4 more days and colestipol 1 gram twice a day. FINAL DISCHARGE DIAGNOSES: 1. Autoimmune urinary tract infection with growth of Escherichia coli. 2. Autoimmune hepatitis. 3. Bile acid induced generalized pruritus responding to colestipol. 4. Hypothyroidism. JACEY MC MD DR: MICHELLE/francisco javier JOB#: [id number] / [id number]
[2018-02-28] MEDS ORDERED: KETOROLAC 30 MG/ML VIAL. IM ONE (15:10)
== END 2018-02-28 15:30 | disposition home or self-care (01) | DRG 690 ==
LOC: ER 08:17 → 1 SOUTH 10:32
PROVIDERS: ADMIT Internal Medicine; ATTEND Internal Medicine
DX: N39.0 Urinary tract infection, site not specified (principal); J98.11 Atelectasis; B96.20 Unspecified Escherichia coli [E. coli] as the cause of diseases classified elsewhere; E03.9 Hypothyroidism, unspecified; G89.29 Other chronic pain; D64.9 Anemia, unspecified; K75.4 Autoimmune hepatitis; I95.9 Hypotension, unspecified; L29.9 Pruritus, unspecified; N28.9 Disorder of kidney and ureter, unspecified; Z82.49 Family history of ischemic heart disease and other diseases of the circulatory system; Z87.440 Personal history of urinary (tract) infections; Z79.899 Other long term (current) drug therapy; Z98.51 Tubal ligation status; Z90.49 Acquired absence of other specified parts of digestive tract
CPT/HCPCS: 36415; 71046; 80048; 80053; 81001; 82140; 83605; 85025; 85610; 87040; 87086; 87186; 87804; 96374; J0696; J1885; J2405; Q0163; 99285-25; J7030

== ENCOUNTER 2018-09-24 19:41 | Emergency (ER) | payer SELFPAY ==
[~2018-09-24] VITALS: Ht 167.6 cm; Wt 81.7 kg
[~2018-09-24 19:41] MED LIST changes: +HYDR-1179 PO; +HYDR-2145 PO; -HYDR-79 PO; -HYDR25TA9 PO
[2018-09-24 20:59] LABS: BASO # 0.1 x10^3/uL (0.0-0.2); BASO % 1 % (0-3); EOS # 0.2 x10^3/uL (0.0-0.7); EOS % 2 % (0-3); HEMATOCRIT 32.8 % (36.0-47.0); HEMOGLOBIN 10.6 g/dL (12.0-15.5); LYMPH # 2.3 x10^3/uL (1.0-4.8); LYMPH % 29 % (24-48); MEAN CORPUSCULAR HEMOGLOBIN 31 pg (25-35); MEAN CORPUSCULAR HGB CONC 32 g/dL (31-37); MEAN CORPUSCULAR VOLUME 95 fL (79-100); MONO # 0.6 x10^3/uL (0.0-1.1); MONO % 8 % (0-9); NEUT # 4.6 x10^3uL (1.8-7.7); NEUT % 60 % (31-73); PLATELET COUNT 390 x10^3/uL (140-400); RED BLOOD COUNT 3.46 x10^6/uL (3.50-5.40); RED CELL DISTRIBUTION WIDTH 13.7 % (11.5-14.5); WHITE BLOOD COUNT 7.7 x10^3/uL (4.0-11.0)
[2018-09-24] MEDS: IV NORMAL SALINE 1,000ML 1,000 ML IV ONE (21:00)
[2018-09-24 21:18] LABS: ALBUMIN 3.1 g/dL (3.4-5.0); ALBUMIN/GLOBULIN RATIO 0.6 (1.0-1.7); CALCIUM 8.2 mg/dL (8.5-10.1); CREATININE 1.5 mg/dL (0.6-1.0); GFR 46.1; POTASSIUM 3.6 mmol/L (3.5-5.1); TOTAL BILIRUBIN 0.1 mg/dL (0.2-1.0); TOTAL PROTEIN 8.1 g/dL (6.4-8.2)
--- NOTE | 2018-09-24 21:27 | PHYS DOC ---
Past History Past Medical History: Kidney Infection, Liver Disease, UTI, Other Additional Past Medical Histor: autoimmune hepatitis Past Surgical History: Cholecystectomy, , Tubal ligation Smoking: Non-smoker Alcohol Use: None Drug Use: None Adult General Chief Complaint Chief Complaint: FLANK PAIN HPI HPI 49-year-old female presents with right flank pain. The patient is concerned because she has autoimmune liver disease. The pain is a cramping sensation on the right side of her abdomen that radiates to her back. She has been off of her liver medications for a couple months due to insurance issues and not being able to afford them. She is concerned that her pain could be related to her liver. She has been feeling generally weak and tired. She has not had a fever. She denies recent trauma. She has had some intermittent nausea and vomiting. Review of Systems Review of Systems Constitutional: Denies fever or chills [] Eyes: Denies change in visual acuity, redness, or eye pain [] HENT: Denies nasal congestion or sore throat [] Respiratory: Denies cough or shortness of breath [] Cardiovascular: No additional information not addressed in HPI [] GI: Right sided abdominal pain, nausea, vomiting. Denies bloody stools or diarrhea [] : Denies dysuria or hematuria [] Musculoskeletal: Denies back pain or joint pain [] Integument: Denies rash or skin lesions [] Neurologic: Denies headache, focal weakness or sensory changes [] Endocrine: Denies polyuria or polydipsia [] All other systems were reviewed and found to be within normal limits, except as documented in this note. Current Medications Current Medications Current Medications Medications (Trade) Dose Ordered Sig/Erick Start Time Stop Time Status Last Admin Dose Admin Sodium Chloride 1,000 ml @ 1,000 mls/hr 1X ONCE 09/24/18 21:00 09/24/18 21:59 09/24/18 21:00 1,000 MLS/HR Allergies Allergies Allergies Coded Allergies Type Severity Reaction Last Updated Verified No Known Drug Allergies 08/15/17 No Physical Exam Physical Exam Constitutional: Well developed, obese, well nourished, no acute distress, non- toxic appearance. [] HENT: Normocephalic, atraumatic, bilateral external ears normal, oropharynx moist, no oral exudates, nose normal. [] Eyes: PERRLA, EOMI, conjunctiva normal, no discharge. [] Neck: Normal range of motion, no tenderness, supple, no stridor. [] Cardiovascular:Heart rate regular rhythm, no murmur [] Lungs & Thorax: Bilateral breath sounds clear to auscultation [] Abdomen: Bowel sounds normal, soft, mild right sided tenderness, no masses, no pulsatile masses. [] Skin: Warm, dry, no erythema, no rash. [] Back: No tenderness, no CVA tenderness. [] Extremities: No tenderness, no cyanosis, no clubbing, ROM intact, no edema. [] Neurologic: Alert and oriented X 3, normal motor function, normal sensory function, no focal deficits noted. [] Psychologic: Affect normal, judgement normal, mood normal. [] Current Patient Data Vital Signs Vital Signs Date Time Temp Pulse Resp B/P (MAP) Pulse Ox O2 Delivery O2 Flow Rate FiO2 09/24/18 21:02 86 16 125/91 (102) 100 09/24/18 20:24 98.2 Room Air Lab Results Laboratory Tests Test 09/24/18 20:40 White Blood Count 7.7 x10^3/uL (4.0-11.0) Red Blood Count 3.46 x10^6/uL (3.50-5.40) L Hemoglobin 10.6 g/dL (12.0-15.5) L Hematocrit 32.8 % (36.0-47.0) L Mean Corpuscular Volume 95 fL (79-100) Mean Corpuscular Hemoglobin 31 pg (25-35) Mean Corpuscular Hemoglobin Concent 32 g/dL (31-37) Red Cell Distribution Width 13.7 % (11.5-14.5) Platelet Count 390 x10^3/uL (140-400) Neutrophils (%) (Auto) 60 % (31-73) Lymphocytes (%) (Auto) 29 % (24-48) Monocytes (%) (Auto) 8 % (0-9) Eosinophils (%) (Auto) 2 % (0-3) Basophils (%) (Auto) 1 % (0-3) Neutrophils # (Auto) 4.6 x10^3uL (1.8-7.7) Lymphocytes # (Auto) 2.3 x10^3/uL (1.0-4.8) Monocytes # (Auto) 0.6 x10^3/uL (0.0-1.1) Eosinophils # (Auto) 0.2 x10^3/uL (0.0-0.7) Basophils # (Auto) 0.1 x10^3/uL (0.0-0.2) Sodium Level 143 mmol/L (136-145) Potassium Level 3.6 mmol/L (3.5-5.1) Chloride Level 107 mmol/L (98-107) Carbon Dioxide Level 26 mmol/L (21-32) Anion Gap 10 (6-14) Blood Urea Nitrogen 12 mg/dL (7-20) Creatinine 1.5 mg/dL (0.6-1.0) H Estimated GFR (Cockcroft-Gault) 46.1 BUN/Creatinine Ratio 8 (6-20) Glucose Level 88 mg/dL (70-99) Calcium Level 8.2 mg/dL (8.5-10.1) L Total Bilirubin 0.1 mg/dL (0.2-1.0) L Aspartate Amino Transferase (AST) 61 U/L (15-37) H Alanine Aminotransferase (ALT) 52 U/L (14-59) Alkaline Phosphatase 402 U/L (46-116) H Total Protein 8.1 g/dL (6.4-8.2) Albumin 3.1 g/dL (3.4-5.0) L Albumin/Globulin Ratio 0.6 (1.0-1.7) L Lipase 447 U/L (73-393) H EKG EKG [] Radiology/Procedures Radiology/Procedures [] Course & Med Decision Making Course & Med Decision Making Pertinent Labs and Imaging studies reviewed. (See chart for details) The patient's labs are remarkable for an elevated creatinine 1.5. A review of her history shows that this is not unusual for her. Her slightly elevated but not significant. I do not have a definitive source for her discomfort. She has a somewhat elevated lipase, but it is about double normal. She has had higher levels in the past. She has had medication-induced pancreatitis once before. I will discharge her with Vicoprofen for her discomfort. If this does not improve, she will follow up with her specialist. She is stable for discharge at this time. [] Dragon Disclaimer Dragon Disclaimer This electronic medical record was generated, in whole or in part, using a voice recognition dictation system. Departure Departure: Impression: Primary Impression: Right flank pain Disposition: 01 HOME, SELF-CARE Condition: STABLE Referrals: CHAPIS TYLER MD (PCP) Patient Instructions: Flank Pain, [id number] Scripts Hydrocodone/Ibuprofen (HYDROCODONE-IBUPROFEN 7.5-200 ) 1 Each Tablet 0.5-1 TAB PO PRN Q6HRS PRN for PAIN, #10 TAB 0 Refills Prov: CECILIO ARTHUR DO 09/24/18 CECILIO ARTHUR DO Sep 24, 2018 21:27
[2018-09-24 21:29] LABS: BACTERIA,URINE FEW /HPF (0-FEW); BILIRUBIN,URINE NEG (NEG); CLARITY,URINE CLOUDY; COLOR,URINE YELLOW; GLUCOSE,URINE NEG (NEG); NITRITE,URINE NEG (NEG); RBC,URINE 0 /HPF (0-2); SQUAMOUS EPITHELIAL CELL,UR OCC /LPF; UROBILINOGEN,URINE 1 mg/dL (0.2 mg/dL); WBC,URINE OCC /HPF (0-4)
[2018-09-24] MEDS ORDERED: HYDR-1179 PO (21:43)
[2018-09-24 21:56] VITALS: BP 133/96
== END 2018-09-24 22:00 | disposition home or self-care (01) ==
LOC: ER 19:41
DX: R10.9 Unspecified abdominal pain (principal); R11.2 Nausea with vomiting, unspecified; R79.89 Other specified abnormal findings of blood chemistry; Z87.440 Personal history of urinary (tract) infections; Z98.890 Other specified postprocedural states; Z98.51 Tubal ligation status
CPT/HCPCS: 36415; 80053; 81001; 83690; 85025; 96360; 99284-25; J7030

== ENCOUNTER 2018-10-21 20:14 | Emergency (ER) | payer OTHER ==
[~2018-10-21] VITALS: Ht 152.4 cm; Wt 81.6 kg
[2018-10-21] MEDS ORDERED: IV NORMAL SALINE 1,000ML 1,000 ML IV SCH (20:34)
--- NOTE | 2018-10-21 20:41 | PHYS DOC ---
Past History Past Medical History: Kidney Infection, Liver Disease, UTI, Other Additional Past Medical Histor: autoimmune hepatitis Past Surgical History: Cholecystectomy, , Hysterectomy ("partial"), Tubal ligation Smoking: Non-smoker Alcohol Use: None Drug Use: None Adult General Chief Complaint Chief Complaint: ABDOMINAL PAIN HPI HPI Patient is a 43-year-old female presents with long-standing right-sided abdominal pain. She reports that she has been unable to get the medicine for her autoimmune hepatitis. She reports being out of her pain medicine and then endorses that she did take a couple of tramadol without any significant improvement of her pain. Pain is in the right upper quadrant. She has previous history of cholecystectomy as well as partial hysterectomy. There has been nausea without any vomiting. She has been taking Zofran ODT for this. Pain is reported as severe. Nothing makes the symptoms better or worse. She is also complaining of a frontal headache like her usual migraine. Again there is nausea, no vomiting. No significant photophobia or phonophobia. Not worst headache of life. No fever. No neck stiffness. No trauma. No change in vision. No weakness in either arm or leg. Symptoms are moderate to severe. Nothing seems to make them better or worse.[] Review of Systems Review of Systems Constitutional: Denies fever or chills [] Eyes: Denies change in visual acuity, redness, or eye pain [] HENT: Denies nasal congestion or sore throat [] Respiratory: Denies cough or shortness of breath [] Cardiovascular: No chest pain or palpitations[] GI: Denies vomiting, bloody stools or diarrhea, see history of present illness [] : Denies dysuria or hematuria [] Musculoskeletal: Denies back pain or joint pain [] Integument: Denies rash or skin lesions [] Neurologic: Denies focal weakness or sensory changes, see history of present illness [] Endocrine: Denies polyuria or polydipsia [] All other systems were reviewed and found to be within normal limits, except as documented in this note. Allergies Allergies Allergies Coded Allergies Type Severity Reaction Last Updated Verified No Known Drug Allergies 08/15/17 No Physical Exam Physical Exam Constitutional: Well developed, well nourished, I'll discomfort, non-toxic appearance. [] HENT: Normocephalic, atraumatic, bilateral external ears normal, oropharynx moist, no oral exudates, nose normal. [] Eyes: PERRLA, EOMI, conjunctiva normal, no discharge. Normal fundi[] Neck: Normal range of motion, no tenderness, supple, no stridor. No meningismus[] Cardiovascular:Heart rate regular rhythm, no murmur [] Lungs & Thorax: Bilateral breath sounds clear to auscultation [] Abdomen: Bowel sounds normal, soft, right-sided abdominal tenderness without any rebound, guarding, nor rigidity, no McBurney's point tenderness, no masses, no pulsatile masses. [] Skin: Warm, dry, no erythema, no rash. [] Back: No tenderness, no CVA tenderness. [] Extremities: No tenderness, no cyanosis, no clubbing, ROM intact, no edema. [] Neurologic: Alert and oriented X 3, normal motor function, normal sensory function, no focal deficits noted. [] Psychologic: Affect normal, judgement normal, mood normal. [] EKG EKG [] Radiology/Procedures Radiology/Procedures PROCEDURE: CT ABDOMEN PELVIS WO CONTRAST Abdominal and Pelvis CT, Without Contrast: History: Right-sided abdominal pain. Comparison: None. Procedure: Axial images are obtained of the abdomen and pelvis, without IV or oral contrast. CT Abdomen without Contrast: Findings: Evaluation of solid organs is limited without contrast. Evaluation of stomach and bowel is limited without oral contrast. There is a moderate hiatal hernia. There is a suture line along the stomach. There is evidence of prior cholecystectomy. Liver: Normal. Spleen: Normal. Pancreas: Normal. Adrenal Glands: Normal. Kidneys: Normal. There is no free air or free fluid. There is no lymphadenopathy. Impression: Please see CT Pelvis without Contrast. End Impression. CT Pelvis without Contrast: Findings: The urinary bladder is collapsed and not well evaluated. There is no free fluid. There is no lymphadenopathy. There is no pericolonic inflammation identified. The appendix is normal. Impression: No acute findings. End impression[] Course & Med Decision Making Course & Med Decision Making Pertinent Labs and Imaging studies reviewed. (See chart for details) Medical decision making: Patient with long-standing pain issues, review of K tracs shows that the patient has prescription filled on 09/26/2018 for 90 tablets of oxycodone 10 mg, 60 tablets of tramadol 50 mg, and 30 tablets of Ambien 10 mg. Patient during her history denied being on any medicines until she revealed that she was on tramadol. Denied taking any oxycodone. Concerned for the possibility of drug seeking behavior. Her alkaline phosphatase is elevated, however it is not at the highest level it has been in the past. There is no evidence of intractable pain. No evidence of acute appendicitis nor how obstruction. No evidence of a bleeding diathesis. No evidence of meningitis, encephalitis, intracranial mass or bleed. ED course: Patient arrived, was placed in bed, and tolerated exam well. She was transported to and from radiology with any complications. She received IV fluids along with pain medicine and antiemetics which improved her symptoms. After the return of lab and imaging studies, these were discussed with the patient who voiced understanding. All questions were answered. She was discharged in improved condition.[] Dragon Disclaimer Dragon Disclaimer This electronic medical record was generated, in whole or in part, using a voice recognition dictation system. Departure Departure: Impression: Primary Impression: Abdominal pain Additional Impression: Headache Disposition: 01 HOME, SELF-CARE Condition: IMPROVED Referrals: RAJINDER DODGE DO (PCP) Follow-up in 2 days Patient Instructions: Chronic Pain, Chronic Pain Management, General Headache Without Cause Additional Instructions: Follow-up with your regular doctor in 2 days. Continue your pain medicine as prescribed. Return to the ER if unable to tolerate liquids, worsening pain, or any other concerns. Scripts Metoclopramide Hcl (REGLAN) 10 Mg Tablet 10 MG PO QID for nausea and vomiting, #30 TAB Prov: FILOMENA WRIGHT DO 10/21/18 Meloxicam (MELOXICAM) 7.5 Mg Tablet 7.5 MG PO DAILY for PAIN, #20 TAB Prov: FILOMENA WRIGHT DO 10/21/18 Hyoscyamine Sulfate (LEVSIN) 0.125 Mg Tablet 0.125 MG PO QID for abdominal pain/cramping, #30 TAB Prov: FILOMENA WRIGHT DO 10/21/18 Problem Qualifiers Primary Impression: Abdominal pain Abdominal location: right upper quadrant Qualified Codes: R10.11 - Right upper quadrant pain Additional Impression: Headache Headache type: unspecified Headache chronicity pattern: episodic headache Intractability: not intractable Qualified Codes: R51 - Headache FILOMENA WRIGHT DO Oct 21, 2018 20:41
[2018-10-21] MEDS ORDERED: KETOROLAC 30 MG/ML VIAL. IV ONE (20:45)
[2018-10-21] MEDS ORDERED: HYOSCYAMINE 0.125 MG TAB.RAPDIS PO ONE (20:45)
[2018-10-21] MEDS ORDERED: diphenhydrAMINE 50 MG/ML VIAL IVP ONE (20:45)
[2018-10-21] MEDS ORDERED: PROCHLORPERAZINE 10 MG/2 ML VIAL. IV ONE (20:45)
[2018-10-21 21:14] LABS: BASO # 0.1 x10^3/uL (0.0-0.2); BASO % 1 % (0-3); EOS # 0.2 x10^3/uL (0.0-0.7); EOS % 2 % (0-3); HEMATOCRIT 34.8 % (36.0-47.0); LYMPH % 20 % (24-48); MEAN CORPUSCULAR HEMOGLOBIN 31 pg (25-35); MEAN CORPUSCULAR HGB CONC 32 g/dL (31-37); MEAN CORPUSCULAR VOLUME 96 fL (79-100); MONO # 0.9 x10^3/uL (0.0-1.1); MONO % 9 % (0-9); NEUT # 6.7 x10^3uL (1.8-7.7); NEUT % 68 % (31-73); PLATELET COUNT 410 x10^3/uL (140-400); RED BLOOD COUNT 3.62 x10^6/uL (3.50-5.40); RED CELL DISTRIBUTION WIDTH 13.9 % (11.5-14.5); WHITE BLOOD COUNT 9.8 x10^3/uL (4.0-11.0)
[2018-10-21 21:27] LABS: ALBUMIN 3.4 g/dL (3.4-5.0); ALBUMIN/GLOBULIN RATIO 0.7 (1.0-1.7); CALCIUM 9.2 mg/dL (8.5-10.1); CREATININE 1.3 mg/dL (0.6-1.0); GFR 54.4; TOTAL BILIRUBIN 0.2 mg/dL (0.2-1.0); TOTAL PROTEIN 8.6 g/dL (6.4-8.2)
[2018-10-21 22:02] LABS: BARBITURATES POS (NEG); BENZODIAZEPINES NEG (NEG); CANNABINOIDS NEG (NEG); COCAINE NEG (NEG); METHADONE NEG (NEG); OPIATES NEG (NEG); PHENCYCLIDINE NEG (NEG)
--- NOTE | 2018-10-21 22:19 | RAD ---
Abdominal and Pelvis CT, Without Contrast: History: Right-sided abdominal pain. Comparison: None. Procedure: Axial images are obtained of the abdomen and pelvis, without IV or oral contrast. CT Abdomen without Contrast: Findings: Evaluation of solid organs is limited without contrast. Evaluation of stomach and bowel is limited without oral contrast. There is a moderate hiatal hernia. There is a suture line along the stomach. There is evidence of prior cholecystectomy. Liver: Normal. Spleen: Normal. Pancreas: Normal. Adrenal Glands: Normal. Kidneys: Normal. There is no free air or free fluid. There is no lymphadenopathy. Impression: Please see CT Pelvis without Contrast. End Impression. CT Pelvis without Contrast: Findings: The urinary bladder is collapsed and not well evaluated. There is no free fluid. There is no lymphadenopathy. There is no pericolonic inflammation identified. The appendix is normal. Impression: No acute findings. End impression PQRS Compliance Statement: One or more of the following individualized dose reduction techniques were utilized for this examination: 1. Automated exposure control 2. Adjustment of the mA and/or kV according to patient size 3. Use of iterative reconstruction technique Electronically signed by: Jerrod Guzmán III, MD (10/21/2018 10:16 PM) [facility]
[2018-10-21 22:25] LABS: AMPHETAMINE/METHAMPHETAMINE NEG (NEG)
[2018-10-21 22:56] LABS: BACTERIA,URINE 0 /HPF (0-FEW); BILIRUBIN,URINE NEG (NEG); CLARITY,URINE HAZY; COLOR,URINE AMBER; GLUCOSE,URINE NEG (NEG); NITRITE,URINE NEG (NEG); RBC,URINE 0 /HPF (0-2); UROBILINOGEN,URINE 0.2 mg/dL (0.2 mg/dL); WBC,URINE OCC /HPF (0-4)
[2018-10-21 22:57] LABS: SQUAMOUS EPITHELIAL CELL,UR FEW /LPF
[2018-10-21] MEDS ORDERED: HYOS0.1264 PO (23:04)
[2018-10-21] MEDS ORDERED: MELO7.5T29 PO (23:04)
[2018-10-21] MEDS ORDERED: METO10TA81 PO (23:04)
[2018-10-21 23:20] VITALS: BP 120/76
== END 2018-10-21 23:25 | disposition home or self-care (01) ==
LOC: ER 20:14
DX: R10.11 Right upper quadrant pain (principal); R51 Headache; Z87.440 Personal history of urinary (tract) infections; Z90.49 Acquired absence of other specified parts of digestive tract; Z98.890 Other specified postprocedural states; Z90.710 Acquired absence of both cervix and uterus; Z98.51 Tubal ligation status
CPT/HCPCS: 36415; 74176; 80053; 80307; 81001; 81025; 83690; 85025; 85610; 85730; 96374; 96375; 99285; J0780; J1200; J1885; J7030

== ENCOUNTER 2019-01-18 08:05 | Emergency (ER) | payer OTHER ==
[~2019-01-18] VITALS: Ht 152.4 cm; Wt 81.6 kg
[~2019-01-18 08:05] MED LIST changes: +HYOS0.1264 PO; +MELO7.5T29 PO; +METO10TA81 PO
[2019-01-18] MEDS ORDERED: IV NORMAL SALINE 1,000ML 1,000 ML IV ONE ×2 (08:15→10:00)
[2019-01-18] MEDS ORDERED: ONDANSETRON PF 4 MG/2 ML VIAL. IVP ONE (08:15)
--- NOTE | 2019-01-18 08:21 | PHYS DOC ---
Past History Past Medical History: Other Additional Past Medical Histor: autoimmune hepatitis Past Surgical History: Cholecystectomy, , Hysterectomy, Tubal ligation, Other Additional Past Surgical Histo: HERNIA REPAIR Smoking: Non-smoker Alcohol Use: None Drug Use: None Adult General Chief Complaint Chief Complaint: SYNCOPE HPI HPI 43-year-old female presents via EMS with syncopal episode. The patient took her medications this morning and then she became nauseated. She thought she was going to throw up so she started to go toward the bathroom. On her way to the bathroom, she got very dizzy. She fell to the floor. She does not remember everything. Her children told her that she passed out foreign unknown amount of time. This seems like it was less than a minute. She vomited all over herself, but does not clearly remember this. EMS was called. She was found have a blood pressure mid 90s over mid 60s. She was given 500 mL of normal saline and 4 mg of Zofran. The patient appears to be at baseline at this time. She tells me that she was fine yesterday. She did not feel ill until after taking her medications. She has had nausea with medications in the past, but she usually has time to take Zofran if needed. She has not had the dizziness or syncope in the past. She denies fever or chills. Review of Systems Review of Systems Constitutional: Denies fever or chills [] Eyes: Denies change in visual acuity, redness, or eye pain [] HENT: Denies nasal congestion or sore throat [] Respiratory: Denies cough or shortness of breath [] Cardiovascular: No additional information not addressed in HPI [] GI: Denies abdominal pain, nausea, vomiting, bloody stools or diarrhea [] : Denies dysuria or hematuria [] Musculoskeletal: Denies back pain or joint pain [] Integument: Denies rash or skin lesions [] Neurologic: Denies headache, focal weakness or sensory changes [] Endocrine: Denies polyuria or polydipsia [] All other systems were reviewed and found to be within normal limits, except as documented in this note. Current Medications Current Medications Current Medications Medications (Trade) Dose Ordered Sig/Erick Start Time Stop Time Status Last Admin Dose Admin Ondansetron HCl (Zofran) 4 mg 1X ONCE 01/18/19 08:15 01/18/19 08:16 UNV Sodium Chloride 1,000 ml @ 1,000 mls/hr 1X ONCE 01/18/19 08:15 01/18/19 09:14 UNV Allergies Allergies Allergies Coded Allergies Type Severity Reaction Last Updated Verified No Known Drug Allergies 01/18/19 No Physical Exam Physical Exam Constitutional: Well developed, well nourished, no acute distress, non-toxic appearance. [] HENT: Normocephalic, atraumatic, bilateral external ears normal, oropharynx moist, no oral exudates, nose normal. [] Eyes: PERRLA, EOMI, conjunctiva normal, no discharge. [] Neck: Normal range of motion, no tenderness, supple, no stridor. [] Cardiovascular:Heart rate regular rhythm, no murmur [] Lungs & Thorax: Bilateral breath sounds clear to auscultation [] Abdomen: Bowel sounds normal, soft, no tenderness, no masses, no pulsatile masses. [] Skin: Warm, dry, no erythema, no rash. [] Back: No tenderness, no CVA tenderness. [] Extremities: No tenderness, no cyanosis, no clubbing, ROM intact, no edema. [] Neurologic: Alert and oriented X 3, normal motor function, normal sensory func tion, no focal deficits noted. [] Psychologic: Affect normal, judgement normal, mood normal. [] Current Patient Data Vital Signs Vital Signs Date Time Temp Pulse Resp B/P (MAP) Pulse Ox O2 Delivery O2 Flow Rate FiO2 01/18/19 08:08 97.9 107 18 97 Room Air EKG EKG Sinus tachycardia, rate 106, normal axis, no ST elevations or depressions.[] Radiology/Procedures Radiology/Procedures [] Impressions: EXAM: CT Head without IV contrast CLINICAL HISTORY: Syncope COMPARISON: 09/11/2017. TECHNIQUE: Routine CT of the head without contrast. Soft tissues and bone windows were reviewed. PQRS compliance statement - One or more of the following individualized dose reduction techniques were utilized for this study: 1. Automated exposure control 2. Adjustment of the mA and/or kV according to patient size 3. Use of iterative reconstruction technique FINDINGS: There is no evidence of hemorrhage, mass or extra-axial fluid collection. Cooper-white differentiation is maintained with no evidence of edema. There is no mass effect or shift of the intracranial structures. The ventricles, basilar cisterns and cortical sulci are normal in size and configuration for the patients stated age. The cerebellum and brainstem are unremarkable. The calvarium demonstrates no evidence of fracture or focal lesion. There is normal aeration of the visualized paranasal sinuses and mastoid air cells. The visualized portions of the orbits are normal. IMPRESSION: No evidence for acute intracranial process. Electronically signed by: Sivakumar Arnold MD (01/18/2019 8:51 AM) [facility] DICTATED AND SIGNED BY: SIVAKUMAR ARNOLD MD DATE: 01/18/19850 CC: CECILIO ARTHUR DO; BIRD JERONIMO MD ~ EXAM: AP View of the chest DATE: 01/18/2019 8:08 AM INDICATION: Syncope COMPARISON: 02/25/2018 FINDINGS: The heart is not enlarged. Mediastinal and hilar contours are normal. No focal parenchymal airspace opacity. No pleural effusion or pneumothorax. Mild eventration right hemidiaphragm. IMPRESSION: No evidence for acute cardiopulmonary process Electronically signed by: Sivakumar Arnold MD (01/18/2019 8:51 AM) [facility] DICTATED AND SIGNED BY: SIVAKUMAR ARNOLD MD DATE: 01/18/19850 CC: CECILIO ARTHUR DO; BIRD JERONIMO MD ~ Course & Med Decision Making Course & Med Decision Making Pertinent Labs and Imaging studies reviewed. (See chart for details) The patient's head CT is negative for acute findings. Her chest x-rays negative for acute findings. We have given her 1 L normal saline and additional 4 mg of Zofran IV. The patient's labs remarkable for elevated liver enzymes. This is a known condition for the patient. Her numbers are similar to previous. Her creatinine is 1.2. Her EKG is unremarkable except for tachycardia. Her troponin is negative. The patient's blood pressure has improved after fluids. I do not see any reason to admit the patient. Her syncopal episode was likely due to vasovagal response. This likely stemmed from a reaction to the medication that she took. She was taking a new medication or vaginal discharge, but she does not have the name of it. It could've been Flagyl. She is stable for discharge at this time. [] Dragon Disclaimer Dragon Disclaimer This electronic medical record was generated, in whole or in part, using a voice recognition dictation system. Departure Departure: Impression: Primary Impression: Syncope Additional Impression: Vomiting Disposition: 01 HOME, SELF-CARE Condition: STABLE Referrals: BIRD JERONIMO MD (PCP) Patient Instructions: Syncope, [id number] Problem Qualifiers Primary Impression: Syncope Syncope type: unspecified Qualified Codes: R55 - Syncope and collapse Additional Impression: Vomiting Vomiting type: unspecified Vomiting Intractability: non-intractable Nausea presence: with nausea Qualified Codes: R11.2 - Nausea with vomiting, unspecified CECILIO ARTHUR DO Jan 18, 2019 08:21
[2019-01-18 08:43] LABS: ALBUMIN/GLOBULIN RATIO 0.6 (1.0-1.7); CALCIUM 9.5 mg/dL (8.5-10.1); CREATININE 1.2 mg/dL (0.6-1.0); GFR 59.6; POTASSIUM 3.6 mmol/L (3.5-5.1); TOTAL BILIRUBIN 0.3 mg/dL (0.2-1.0); TOTAL PROTEIN 8.4 g/dL (6.4-8.2)
[2019-01-18 08:47] LABS: BASO % 1 % (0-3); EOS # 0.1 x10^3/uL (0.0-0.7); EOS % 2 % (0-3); HEMATOCRIT 34.7 % (36.0-47.0); LYMPH # 1.9 x10^3/uL (1.0-4.8); LYMPH % 37 % (24-48); MEAN CORPUSCULAR HEMOGLOBIN 29 pg (25-35); MEAN CORPUSCULAR HGB CONC 32 g/dL (31-37); MEAN CORPUSCULAR VOLUME 92 fL (79-100); MONO # 0.6 x10^3/uL (0.0-1.1); MONO % 11 % (0-9); NEUT # 2.5 x10^3uL (1.8-7.7); NEUT % 49 % (31-73); PLATELET COUNT 365 x10^3/uL (140-400); RED BLOOD COUNT 3.76 x10^6/uL (3.50-5.40); WHITE BLOOD COUNT 5.2 x10^3/uL (4.0-11.0)
--- NOTE | 2019-01-18 08:54 | RAD ---
EXAM: CT Head without IV contrast CLINICAL HISTORY: Syncope COMPARISON: 09/11/2017. TECHNIQUE: Routine CT of the head without contrast. Soft tissues and bone windows were reviewed. PQRS compliance statement - One or more of the following individualized dose reduction techniques were utilized for this study: 1. Automated exposure control 2. Adjustment of the mA and/or kV according to patient size 3. Use of iterative reconstruction technique FINDINGS: There is no evidence of hemorrhage, mass or extra-axial fluid collection. Cooper-white differentiation is maintained with no evidence of edema. There is no mass effect or shift of the intracranial structures. The ventricles, basilar cisterns and cortical sulci are normal in size and configuration for the patients stated age. The cerebellum and brainstem are unremarkable. The calvarium demonstrates no evidence of fracture or focal lesion. There is normal aeration of the visualized paranasal sinuses and mastoid air cells. The visualized portions of the orbits are normal. IMPRESSION: No evidence for acute intracranial process. Electronically signed by: Sivakumar Turpin MD (01/18/2019 8:51 AM) [facility]
--- NOTE | 2019-01-18 08:54 | RAD ---
EXAM: AP View of the chest DATE: 01/18/2019 8:08 AM INDICATION: Syncope COMPARISON: 02/25/2018 FINDINGS: The heart is not enlarged. Mediastinal and hilar contours are normal. No focal parenchymal airspace opacity. No pleural effusion or pneumothorax. Mild eventration right hemidiaphragm. IMPRESSION: No evidence for acute cardiopulmonary process Electronically signed by: Sivakumar Turpin MD (01/18/2019 8:51 AM) [facility]
[2019-01-18 09:45] LABS: AMPHETAMINE/METHAMPHETAMINE NEG (NEG); BARBITURATES NEG (NEG); BENZODIAZEPINES NEG (NEG); CANNABINOIDS NEG (NEG); COCAINE NEG (NEG); METHADONE NEG (NEG); OPIATES NEG (NEG); PHENCYCLIDINE NEG (NEG)
[2019-01-18 10:22] LABS: BACTERIA,URINE 0 /HPF (0-FEW); BILIRUBIN,URINE NEG (NEG); CLARITY,URINE CLEAR; COLOR,URINE YELLOW; GLUCOSE,URINE NEG (NEG); NITRITE,URINE NEG (NEG); RBC,URINE 0 /HPF (0-2); SQUAMOUS EPITHELIAL CELL,UR FEW /LPF; UROBILINOGEN,URINE 0.2 mg/dL (0.2 mg/dL); WBC,URINE 0 /HPF (0-4)
[2019-01-18 10:35] VITALS: BP 129/88
--- NOTE | 2019-01-20 04:07 | EKG ---
[address] [address] Test Date: 2019-01-18 Test Time: 08:14:08 Pat Name: AMRIK ANTOINE Department: Room: Gender: F Cook [place]: : 1975 Requested By: CECILIO ARTHUR Order Number: [id number] Reading MD: Measurements Intervals [place] Rate: 106 P: 38 [place]: 146 QRS: 3 QRSD: 82 T: 46 QT: 358 QTc: 477 Interpretive Statements SINUS TACHYCARDIA OTHERWISE NORMAL ECG RI6.01 No previous ECG available for comparison
== END 2019-01-18 10:35 | disposition home or self-care (01) ==
LOC: ER 08:05
DX: R55 Syncope and collapse (principal); R11.2 Nausea with vomiting, unspecified
CPT/HCPCS: 36415; 70450; 71045; 80053; 80307; 81001; 84484; 85025; 93005; 96361; 96374; 99285; J2405; J7030

== ENCOUNTER 2019-03-15 01:25 | Emergency (ER) | payer OTHER ==
[~2019-03-15] VITALS: Ht 152.4 cm; Wt 84.9 kg
[2019-03-15 01:30] VITALS: BP 120/68
--- NOTE | 2019-03-15 02:00 | PHYS DOC ---
Past History Past Medical History: Hepatitis, Liver Disease, Migraines, Ovarian Cyst, Renal Disease, STD, UTI, Other Additional Past Medical Histor: autoimmune hepatitis, LIVER DISEASE Past Surgical History: Cholecystectomy, , Hysterectomy, Tubal ligation, Other Additional Past Surgical Histo: HERNIA REPAIR Smoking: Non-smoker Alcohol Use: None Drug Use: Opiates Adult General Chief Complaint Chief Complaint: CONSTIPATION HPI HPI Patient is a 43-year-old female who presents to the emergency department for evaluation. She states that she has been constipated, having minimal bowel movements for the past 10 days. She took a dose of her constipation medication, Amitiza, to try and help her constipation, and states when she laid down, she felt a reflux taste in her mouth, with a burning sensation in her chest, and a salt/brash taste in her mouth. She states that she still has a sour taste in her mouth, despite drinking some water. She denies any abdominal pain, has not had any true vomiting. She has not had any fevers or chills. She denies any blood in her stool. She is not having any chest pain per se. There are no alleviating or exacerbating factors to her symptoms otherwise. Review of Systems Review of Systems Constitutional: Denies fever or chills [] Eyes: Denies change in visual acuity, redness, or eye pain [] HENT: Denies nasal congestion or sore throat [] Respiratory: Denies cough or shortness of breath [] Cardiovascular: No additional information not addressed in HPI [] GI: Denies abdominal pain, vomiting, bloody stools or diarrhea [] : Denies dysuria or hematuria [] Musculoskeletal: Denies back pain or joint pain [] Integument: Denies rash or skin lesions [] Neurologic: Denies headache, focal weakness or sensory changes [] Endocrine: Denies polyuria or polydipsia [] All other systems were reviewed and found to be within normal limits, except as documented in this note. Current Medications Current Medications Current Medications Medications (Trade) Dose Ordered Sig/Erick Start Time Stop Time Status Last Admin Dose Admin Multi-Ingredient Mouthwash/Gargle (Gi Cocktail) 20 ml 1X ONCE 03/15/19 02:30 03/15/19 02:31 Allergies Allergies Allergies Coded Allergies Type Severity Reaction Last Updated Verified No Known Drug Allergies 01/18/19 No Physical Exam Physical Exam PHYSICAL EXAM: CONSTITUTIONAL: Well developed, well nourished HEAD: normocephalic, atraumatic EENT: PERRL, EOMI. Conjunctivae normal color, sclerae non-icteric; moist mucous membranes. The oropharynx is unremarkable. NECK: Supple, non-tender; no meningismus. LUNGS: Lungs CTA, breathing even and unlabored. Normal air movement. HEART: Regular rate and rhythm, no murmur CHEST: No deformity; non-tender ABDOMEN: The abdomen is soft, and non-tender, no masses or bruits. EXTREM: Normal ROM; no deformity, no calf tenderness. Normal pulses palpable in all extremities. There is no pedal edema. SKIN: No rash; no diaphoresis NEURO: Alert; normal speech and cognition; CN's grossly intact; strength grossly intact without focal deficit. BACK: No CVA TTP. Current Patient Data Vital Signs Vital Signs Date Time Temp Pulse Resp B/P (MAP) Pulse Ox O2 Delivery O2 Flow Rate FiO2 03/15/19 01:30 98.2 91 20 98 Room Air 03/15/19 01:25 120/68 (85) EKG EKG Normal sinus rhythm at a rate of 78 bpm, normal axis, normal intervals, there are no acute ischemic ST/T changes.[][] Radiology/Procedures Radiology/Procedures ER physician preliminary chest x-ray interpretation: Atelectasis right lung base, increased stool pertinent consistent with constipation without other acute abnormality.[] Course & Med Decision Making Course & Med Decision Making Patient's condition remains stable. I discussed test results, the need for outpatient follow-up, and return precautions. Dragon Disclaimer Dragon Disclaimer This electronic medical record was generated, in whole or in part, using a voice recognition dictation system. Departure Departure: Impression: Primary Impression: GERD (gastroesophageal reflux disease) Additional Impression: Constipation Disposition: 01 HOME, SELF-CARE Condition: STABLE Referrals: BIRD JERONIMO MD (PCP) Patient Instructions: Constipation, Adult, Gastroesophageal Reflux Disease, Adult Additional Instructions: Use of MiraLAX, or milk of magnesia may help improve your constipation. An enema or suppository may be required to help relieve colonic stool burden if oral laxitives are not effective. Scripts Omeprazole (OMEPRAZOLE) 20 Mg Capsule.dr 1 CAP PO DAILY for -, #30 CAP 0 Refills Prov: KAELYN BURCH MD 03/15/19 Problem Qualifiers KAELYN BURCH MD Mar 15, 2019 01:59
[2019-03-15] MEDS ORDERED: LIDO:MAALOX 1:1 20 ML SINGLE DOSE. PO ONE (02:30)
[2019-03-15] MEDS ORDERED: OMEP20CA16 PO (02:45)
--- NOTE | 2019-03-15 03:28 | RAD ---
EXAM: Frontal view of the chest, AP views of the abdomen in upright and supine positions. CLINICAL INDICATION: Constipation COMPARISON: None. FINDINGS and IMPRESSION: The heart is not enlarged. Mediastinal and hilar contours are normal. Linear opacities left lung base likely scarring/atelectasis. No pleural effusion or pneumothorax. No abnormal small or large bowel dilatation. Moderate to large volume colonic stool content, particularly in the left colon. No abnormal soft tissue mass effect. No suspicious calcifications are seen. No free intraperitoneal gas. Cholecystectomy clips are seen. Electronically signed by: Sivakumar Turpin MD (03/15/2019 3:25 AM) [facility]
--- NOTE | 2019-03-18 12:23 | EKG ---
[address] [address] Test Date: 2019-03-15 Test Time: 02:06:47 Pat Name: AMRIK ANTOINE Department: Room: Gender: F Filter Tip Inspector: : 1975 Requested By: KAELYN BURCH Order Number: [id number] Reading MD: Pineda Maradiaga MD Measurements Intervals [place] Rate: 78 P: -28 WI: 144 QRS: 24 QRSD: 88 T: 36 QT: 380 QTc: 437 Interpretive Statements SINUS RHYTHM Electronically Signed On 03-19-2019 13:47:31 PROFESSOR OF THEATRE by Pineda Maradiaga MD
== END 2019-03-15 02:48 | disposition home or self-care (01) ==
LOC: ER 01:25
DX: K21.9 Gastro-esophageal reflux disease without esophagitis (principal); K59.00 Constipation, unspecified; N28.9 Disorder of kidney and ureter, unspecified; G43.909 Migraine, unspecified, not intractable, without status migrainosus; Z87.440 Personal history of urinary (tract) infections
CPT/HCPCS: 74022; 93005; 99284

== ENCOUNTER → 2019-09-20 | Outpatient (CLI) | payer OTHER ==
[~2019-09-20] MED LIST changes: +OMEP20CA16 PO
[2019-09-20 13:53] LABS: BASO # 0.1 x10^3/uL (0.0-0.2); BASO % 1 % (0-3); EOS # 0.4 x10^3/uL (0.0-0.7); EOS % 4 % (0-3); HEMATOCRIT 31.1 % (36.0-47.0); HEMOGLOBIN 9.9 g/dL (12.0-15.5); LYMPH # 2.5 x10^3/uL (1.0-4.8); LYMPH % 21 % (24-48); MEAN CORPUSCULAR HEMOGLOBIN 28 pg (25-35); MEAN CORPUSCULAR HGB CONC 32 g/dL (31-37); MEAN CORPUSCULAR VOLUME 88 fL (79-100); MONO # 0.7 x10^3/uL (0.0-1.1); MONO % 6 % (0-9); NEUT % 68 % (31-73); PLATELET COUNT 426 x10^3/uL (140-400); RED BLOOD COUNT 3.56 x10^6/uL (3.50-5.40); RED CELL DISTRIBUTION WIDTH 16.5 % (11.5-14.5); WHITE BLOOD COUNT 11.7 x10^3/uL (4.0-11.0)
[2019-09-20 14:09] LABS: ALBUMIN 3.2 g/dL (3.4-5.0); ALBUMIN/GLOBULIN RATIO 0.6 (1.0-1.7); CALCIUM 8.2 mg/dL (8.5-10.1); CREATININE 1.7 mg/dL (0.6-1.0); GFR 39.7; MAGNESIUM 1.7 mg/dL (1.8-2.4); PHOSPHORUS 3.1 mg/dL (2.6-4.7); TOTAL BILIRUBIN 0.8 mg/dL (0.2-1.0); TOTAL PROTEIN 8.5 g/dL (6.4-8.2)
[2019-09-21 04:07] LABS: HEMOGLOBIN A1C 5.2 % (4.8-5.6)
== END ==
LOC: LAB 12:59
PROVIDERS: ATTEND Surgery
DX: Z01.818 Encounter for other preprocedural examination (principal); E66.01 Morbid (severe) obesity due to excess calories; I10 Essential (primary) hypertension; K21.9 Gastro-esophageal reflux disease without esophagitis
CPT/HCPCS: 36415; 80053; 80061; 82306; 82607; 82746; 83036; 83540; 83735; 84100; 84550; 85025

== ENCOUNTER → 2019-11-04 | Outpatient (CLI) | payer OTHER ==
--- NOTE | 2019-11-04 16:11 | RAD ---
LUMBAR SPINE 2-3V, THORACIC SPINE 3V Clinical Indication: Reason: BACK PAIN / Spl. Instructions: / History: Comparison: CT abdomen and pelvis without contrast, October 21, 2018. Findings: There is minimal S-shaped thoracolumbar scoliosis. Sclerosis along the bilateral sacroiliac joints is similar to prior study. Correlate for sacroiliitis. Cholecystectomy clips. No acute fracture. The vertebral body height and alignment are maintained. The paravertebral stripes are smooth. Visualized lungs are clear. Cervical spine alignment is maintained on the swimmer's view. Suture material left upper abdomen. IMPRESSION: No acute fracture or malalignment. Electronically signed by: Adan Renee MD (11/04/2019 4:09 PM) [id number]
== END ==
LOC: DXRAD 10:53
PROVIDERS: ATTEND Family Medicine
DX: G89.4 Chronic pain syndrome (principal); M41.85 Other forms of scoliosis, thoracolumbar region; G95.89 Other specified diseases of spinal cord; Z90.49 Acquired absence of other specified parts of digestive tract
CPT/HCPCS: 72072; 72100

== ENCOUNTER → 2020-03-19 | Outpatient (CLI) | payer OTHER ==
[2020-03-19 12:04] LABS: BILIRUBIN,URINE NEG (NEG); CLARITY,URINE HAZY; COLOR,URINE YELLOW; GLUCOSE,URINE NEG (NEG)
[2020-03-19 12:05] LABS: BACTERIA,URINE FEW /HPF (0-FEW); HYALINE CASTS, URINE FEW /HPF; NITRITE,URINE NEG (NEG); SQUAMOUS EPITHELIAL CELL,UR MOD /LPF; UROBILINOGEN,URINE 0.2 mg/dL (0.2 mg/dL)
== END ==
LOC: LAB 10:05
PROVIDERS: ATTEND Internal Medicine Gastroenterology
DX: R31.9 Hematuria, unspecified (principal)
CPT/HCPCS: 81001

== ENCOUNTER 2020-04-12 15:15 | Emergency (ER) | payer OTHER ==
[~2020-04-12] VITALS: Ht 152.4 cm; Wt 84.9 kg
[2020-04-12 15:35] VITALS: BP 127/94
== END 2020-04-12 15:50 | disposition left against medical advice (07) ==
LOC: ER 15:15
DX: M54.89 Other dorsalgia (principal); R07.89 Other chest pain; R31.9 Hematuria, unspecified; Z53.21 Procedure and treatment not carried out due to patient leaving prior to being seen by health care provider

== ENCOUNTER 2020-10-19 15:41 | Emergency (ER) | payer OTHER ==
[~2020-10-19] VITALS: Ht 152.4 cm; Wt 78.2 kg
[2020-10-19] MEDS ORDERED: ONDANSETRON PF 4 MG/2 ML VIAL. IVP ONE (16:00)
--- NOTE | 2020-10-19 16:04 | PHYS DOC ---
Past History Past Medical History: Hepatitis, Liver Disease, Migraines, Ovarian Cyst, Renal Disease, STD, UTI, Other Additional Past Medical Histor: autoimmune hepatitis, LIVER DISEASE (NAILA SOLIS APRN) Past Surgical History: Cholecystectomy, , Hysterectomy, Tubal ligation, Other Additional Past Surgical Histo: HERNIA REPAIR (NAILA SOLIS APRN) Smoking: Non-smoker Alcohol Use: None Drug Use: Opiates (NAILA SOLIS APRN) General Adult EDM: Chief Complaint: ABDOMINAL PAIN HPI: HPI: Patient is a 45-year-old female presents to the ER today for right upper quadrant pain for 2 days. She reports that pain radiates to her epigastric region into her throat. She rates it 10 out of 10 and describes it as a sharp pain. The pain is aggravated by eating, no alleviating factors, patient took naproxen 1 hour prior to arrival with no relief in symptoms. Patient is also reporting nausea and vomiting, she reports vomiting 2 times today. Patient has a history of liver disease, renal disease, hiatal hernia, gastric sleeve and bypass, and cholecystectomy. Patient denies urinary complaints, fevers, blood in stools or vomit, diarrhea. (NAILA SOLIS APRN) Review of Systems: Review of Systems: 14 body systems of the review of systems have been reviewed. See HPI for pertinent positive and negative responses, otherwise all other systems are negative, nonpertinent or noncontributory (NAILA SOLIS APRN) Allergies: Allergies: Allergies Coded Allergies Type Severity Reaction Last Updated Verified No Known Drug Allergies 01/18/19 No (NAILA SOLIS APRN) Physical Exam: PE: Constitutional: Well developed, well nourished, no acute distress, non-toxic appearance. [] HENT: Normocephalic, atraumatic Eyes: PERRL, conjunctiva normal, no discharge. [] Neck: Normal range of motion, no stridor Cardiovascular:Heart rate regular rhythm, no murmur [] Lungs & Thorax: Bilateral breath sounds clear to auscultation [] Abdomen: Bowel sounds normal, soft, no masses, no pulsatile masses, pain with palpation to right upper quadrant. [] Skin: Warm, dry, no erythema, no rash. [] Back: Normal range of motion Extremities: No tenderness, no cyanosis, no clubbing, ROM intact, no edema. [] Neurologic: Alert and oriented X 3, normal motor function, normal sensory function, no focal deficits noted. [] Psychologic: Affect normal, judgement normal, mood normal. [] (NAILA SOLIS APRN) Current Patient Data: Labs: Laboratory Tests Test 10/19/20 16:10 White Blood Count 7.3 x10^3/uL Red Blood Count 3.73 x10^6/uL Hemoglobin 11.2 g/dL Hematocrit 34.5 % Mean Corpuscular Volume 93 fL Mean Corpuscular Hemoglobin 30 pg Mean Corpuscular Hemoglobin Concent 33 g/dL Red Cell Distribution Width 14.1 % Platelet Count 264 x10^3/uL Neutrophils (%) (Auto) 58 % Lymphocytes (%) (Auto) 31 % Monocytes (%) (Auto) 10 % Eosinophils (%) (Auto) 1 % Basophils (%) (Auto) 1 % Neutrophils # (Auto) 4.2 x10^3uL Lymphocytes # (Auto) 2.3 x10^3/uL Monocytes # (Auto) 0.7 x10^3/uL Eosinophils # (Auto) 0.0 x10^3/uL Basophils # (Auto) 0.1 x10^3/uL Sodium Level 144 mmol/L Potassium Level 3.7 mmol/L Chloride Level 107 mmol/L Carbon Dioxide Level 22 mmol/L Anion Gap 15 Blood Urea Nitrogen 13 mg/dL Creatinine 1.1 mg/dL Estimated GFR (Cockcroft-Gault) 65.3 BUN/Creatinine Ratio 12 Glucose Level 85 mg/dL Calcium Level 8.0 mg/dL Total Bilirubin 0.8 mg/dL Aspartate Amino Transf (AST/SGOT) 48 U/L Alanine Aminotransferase (ALT/SGPT) 41 U/L Alkaline Phosphatase 491 U/L Troponin I Quantitative < 0.017 ng/mL Total Protein 8.0 g/dL Albumin 3.3 g/dL Albumin/Globulin Ratio 0.7 Lipase 175 U/L Current Medications Medications (Trade) Dose Ordered Sig/Erick Route PRN Reason Start Time Stop Time Status Last Admin Dose Admin Ondansetron HCl (Zofran) 4 mg 1X ONCE IVP 10/19/20 16:00 10/19/20 16:16 DC 10/19/20 17:17 Fentanyl Citrate (Fentanyl 2ml Vial) 50 mcg 1X ONCE IVP 10/19/20 16:00 10/19/20 16:16 DC 10/19/20 17:17 Iohexol (Omnipaque 300 Mg/ml) 75 ml 1X ONCE IV 10/19/20 16:15 10/19/20 16:16 DC 10/19/20 16:15 (NAILA SOLIS APRN) EKG: EKG: [] (NAILA SOLIS APRN) Radiology/Procedures: Radiology/Procedures: PROCEDURE: CT ABD PELV W/ IV CONTRST ONLY PQRS Compliance Statement: One or more of the following individualized dose reduction techniques were utilized for this examination: 1. Automated exposure control 2. Adjustment of the mA and/or kV according to patient size 3. Use of iterative reconstruction technique CT abdomen/pelvis with contrast 10/19/2020 5:17 PM INDICATION: Right upper quadrant pain COMPARISON: CT abdomen/pelvis 10/21/2018 TECHNIQUE: Multiple axial CT images of the abdomen and pelvis were obtained after the intravenous administration of 75 mL nonionic contrast. Coronal and s agittal reformats are provided. FINDINGS: There is minimal subsegmental atelectasis at the lung bases. Heart size is within normal limits. Small hiatal hernia. Mild hepatic steatosis. Spleen is intact. Adrenal glands normal in appearance. There is minimal prominence of main pancreatic duct measuring up to 2 mm. Gallbladder surgically absent. Mild intrahepatic and extrahepatic biliary ductal dilatation favors reservoir effect status post cholecystectomy. Post surgical changes are identified from gastric bypass. No dilated loops of small or large bowel are identified. No bowel obstruction or inflammation. Small volume fecal contents identified throughout the left colon and rectum. Appendix is normal. The abdominal aorta is normal in course and caliber. There are no pathologically enlarged lymph nodes in the abdomen and pelvis. There is no abdominal free fluid. There is no free intraperitoneal air. The kidneys are relatively symmetric in appearance. There is no suspicious renal mass within the limitations of a noncontrast examination. There is no hydronephrosis. There are no calculi within the kidneys, ureters or urinary bladder. A pessary is identified. Uterus is normal in appearance. No suspicious adnexal mass. No suspicious osseous abnormality. Urinary bladder is within normal distention. IMPRESSION: 1. No acute abnormality is identified as detailed above. 2. Pessary is present. 2. Small hiatal hernia with history of gastric bypass. Electronically signed by: Jhon Munoz MD (10/19/2020 5:37 PM) [facility] DICTATED AND SIGNED BY: JHON MUNOZ MD DATE: 10/19/20 173 CC: NAILA SOLIS APRN; BIRD JERONIMO MD ~MTH0 0 (NAILA SOLIS APRN) Heart Score: C/O Chest Pain: No Risk Factors: Risk Factors: DM, Current or recent (<one month) smoker, HTN, HLP, family history of CAD, obesity. Risk Scores: Score 0 - 3: 2.5% MACE over next 6 weeks - Discharge Home Score 4 - 6: 20.3% MACE over next 6 weeks - Admit for Clinical Observation Score 7 - 10: 72.7% MACE over next 6 weeks - Early Invasive Strategies (NAILA SOLIS APRN) Course & Med Decision Making: Course & Med Decision Making Pertinent Labs and Imaging studies reviewed. (See chart for details) Patient is a 45-year-old female being seen in the ER today for right upper quadrant pain. Patient has an extensive history including liver disease, renal disease, gastric sleeve and bypass. Blood work, UA, CT abdomen was performed in the ER. CT scan of her abdomen was unremarkable., And a small hiatal hernia. No leukocytosis. Patient's AST is 48, alk phos 491, creatinine 1.1. This is consistent with patient's renal and liver disease. It is likely that patient's pain is contributed to the hiatal hernia seen on her CT scan of her abdomen. Patient was given pain control in the ER as well as nausea medication. Patient was given a GI cocktail. Patient reports that her pain has improved. I discussed with patient all findings and diagnostic testing as well as the need to follow-up with PCP for further evaluation and treatment or return to the ER if any new or worsening symptoms. Strict return precautions were also discussed at length. Patient voiced understanding and agreement with the plan. Patient is hemodynamically stable at the time of disposition. (NAILA SOLIS APRN) Dragon Disclaimer: Dragon Disclaimer: This electronic medical record was generated, in whole or in part, using a voice recognition dictation system. (NAILA SOLIS APRN) Attending Co-Sign The patient was seen and interviewed as well as examined at the bedside. The chart was reviewed. The case was discussed. Agree with the plan of care. (CECILIO ARTHUR DO) Departure Departure: Impression: Primary Impression: Abdominal pain Qualified Codes: R10.11 - Right upper quadrant pain Disposition: HOME / SELF CARE / HOMELESS Condition: GOOD Referrals: BIRD JERONIMO MD (PCP) Patient Instructions: Abdominal Pain, Hiatal Hernia Additional Instructions: You were seen in the ER today for right upper abdominal pain with nausea and vomiting. As we discussed, you had abnormal liver tests which is likely due to your liver disease. The CT scan of your abdomen showed a small hiatal hernia but no other abnormal findings. It is likely that your hiatal hernia is causing your symptoms. You were treated in the ER with pain medication and a GI cocktail. Please follow-up with your GI doctor regarding your symptoms. If you develop fevers, uncontrollable nausea or vomiting, blood in your stools or vomit, severe abdominal pain, chest pain, shortness of breath please return to the ER immediately. EMERGENCY DEPARTMENT GENERAL DISCHARGE INSTRUCTIONS Thank you for coming to [facility] (ED) today and trusting us with you care. We trust that you had a positivie experience in our Emergency Department. If you wish to speak to the department management, you may call the director at [phone]. YOUR FOLLOW UP INSTRUCTIONS ARE FOLLOWS: 1. Do you have a private Doctor? If you do not have a private doctor, please ask for a resource list of physicians or clinics that may be able to assist you with follow up care. 2. The Emergency Physician has interpreted your x-rays. The X-Ray specialist will also review them. If there is a change in the findings, you will be notified in 48 hours when at all possible. 3. A lab test or culture has been done, your results will be reviewed and you will be notified if you need a change in treatment. ADDITIONAL INSTRUCTIONS AND INFORMATION: 1. Your care today has been supervised by a physician who is specially trained in emergency care. Many problems require more than one evaluation for a complete diagnosis and treatment. We recommend that you schedule your follow up appointment as recommended to ensure complete treatment of you illness or injury. If you are unable to obtain follow up care and continue to have a problem, or if your condition worsens, we recommend that you return to the ED. 2. We are not able to safely determine your condition over the phone nor are we able to give sound medical advice over the phone. For these safety reasons, if you call for medical advice we will ask you to come to the ED for further evaluation. 3. If you have any questions regarding these discharge instructions please call the ED at [phone]. SAFETY INFORMATION: In the interest of safety, wellness, and injury prevention; we encourage you to wear your sealbelt, if you smoke; quite smoking, and we encourage family to use a protective helmet for bicycling and other sporting events that present an increased risk for head injury. IF YOUR SYMPTOMS WORSEN OR NEW SYMPTOMS DEVELOP, OR YOU HAVE CONCERNS ABOUT YOUR CONDITION; OR IF YOUR CONDITION WORSENS WHILE YOU ARE WAITING FOR YOUR FOLLOW UP APPOINTMENT; EITHER CONTACT YOUR PRIMARY CARE DOCTOR, THE PHYSICIAN WHOSE NAME AND NUMBER YOU WERE GIVEN, OR RETURN TO THE ED IMMEDIATELY. NAILA SOLIS APRN Oct 19, 2020 16:04 CECILIO ARTHUR DO Oct 21, 2020 12:13
[2020-10-19] MEDS ORDERED: IOHEXOL 300 MG/ML 75 ML VIAL. IV ONE (16:15)
--- NOTE | 2020-10-19 16:26 | EKG ---
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
[2020-10-19 16:38] LABS: CREATININE 1.1 mg/dL (0.6-1.0); GFR 65.3; POTASSIUM 3.7 mmol/L (3.5-5.1)
[2020-10-19 16:44] LABS: ALBUMIN 3.3 g/dL (3.4-5.0); ALBUMIN/GLOBULIN RATIO 0.7 (1.0-1.7); TOTAL BILIRUBIN 0.8 mg/dL (0.2-1.0)
[2020-10-19 16:50] LABS: BASO # 0.1 x10^3/uL (0.0-0.2); BASO % 1 % (0-3); EOS % 1 % (0-3); HEMATOCRIT 34.5 % (36.0-47.0); HEMOGLOBIN 11.2 g/dL (12.0-15.5); LYMPH # 2.3 x10^3/uL (1.0-4.8); LYMPH % 31 % (24-48); MEAN CORPUSCULAR HEMOGLOBIN 30 pg (25-35); MEAN CORPUSCULAR HGB CONC 33 g/dL (31-37); MEAN CORPUSCULAR VOLUME 93 fL (79-100); MONO # 0.7 x10^3/uL (0.0-1.1); MONO % 10 % (0-9); NEUT # 4.2 x10^3uL (1.8-7.7); NEUT % 58 % (31-73); PLATELET COUNT 264 x10^3/uL (140-400); RED BLOOD COUNT 3.73 x10^6/uL (3.50-5.40); RED CELL DISTRIBUTION WIDTH 14.1 % (11.5-14.5); WHITE BLOOD COUNT 7.3 x10^3/uL (4.0-11.0)
--- NOTE | 2020-10-19 17:39 | RAD ---
PQRS Compliance Statement: One or more of the following individualized dose reduction techniques were utilized for this examinat ion: 1. Automated exposure control 2. Adjustment of the mA and/or kV according to patient size 3. Use of iterative reconstruction technique CT abdomen/pelvis with contrast 10/19/2020 5:17 PM INDICATION: Right upper quadrant pain COMPARISON: CT abdomen/pelvis 10/21/2018 TECHNIQUE: Multiple axial CT images of the abdomen and pelvis were obtained after the intravenous adm inistration of 75 mL nonionic contrast. Coronal and sagittal reformats are provided. FINDINGS: There is minimal subsegmental atelectasis at the lung bases. Heart size is within normal limits. Smal l hiatal hernia. Mild hepatic steatosis. Spleen is intact. Adrenal glands normal in appearance. There is minimal prominence of main pancreatic duct measuring up to 2 mm. Gallbladder surgically absent. M ild intrahepatic and extrahepatic biliary ductal dilatation favors reservoir effect status post familia cystectomy. Post surgical changes are identified from gastric bypass. No dilated loops of small or large bowel ar e identified. No bowel obstruction or inflammation. Small volume fecal contents identified throughout the left colon and rectum. Appendix is normal. The abdominal aorta is normal in course and caliber. There are no pathologically enlarged lymph nodes in the abdomen and pelvis. There is no abdominal free fluid. There is no free intraperitoneal air. The kidneys are relatively symmetric in appearance. There is no suspicious renal mass within the limi tations of a noncontrast examination. There is no hydronephrosis. There are no calculi within the kid neys, ureters or urinary bladder. A pessary is identified. Uterus is normal in appearance. No suspicious adnexal mass. No suspicious os seous abnormality. Urinary bladder is within normal distention. IMPRESSION: 1. No acute abnormality is identified as detailed above. 2. Pessary is present. 2. Small hiatal hernia with history of gastric bypass. Electronically signed by: Jaimee Rider MD (10/19/2020 5:37 PM) [facility]
[2020-10-19] MEDS ORDERED: LIDO:MAALOX 1:1 20 ML SINGLE DOSE. PO ONE (18:00)
[2020-10-19 18:50] VITALS: BP 150/94
== END 2020-10-19 19:24 | disposition home or self-care (01) ==
LOC: ER 15:41
DX: R10.11 Right upper quadrant pain (principal); R11.2 Nausea with vomiting, unspecified; G43.909 Migraine, unspecified, not intractable, without status migrainosus; Z87.442 Personal history of urinary calculi; Z90.49 Acquired absence of other specified parts of digestive tract; Z98.890 Other specified postprocedural states; Z90.710 Acquired absence of both cervix and uterus; Z98.51 Tubal ligation status
CPT/HCPCS: 36415; 74177; 80053; 83690; 84484; 85025; 93005; 96374; 96375; 99285; J2405; J3010; Q9967

== ENCOUNTER 2020-11-28 19:23 | Inpatient (IN) | payer OTHER ==
[~2020-11-28] VITALS: Ht 152.4 cm; Wt 77.5 kg
[~2020-11-28 19:23] MED LIST changes: -DOXY100C2 PO; +DOXY100C3 PO
[2020-11-28] MEDS ORDERED: MORPHINE SULFATE 2 MG/ML DISP.SYRIN. IV ONE (19:30)
[2020-11-28] MEDS ORDERED: IV RINGERS SOLUTION,LACTATED 1,000 ML IV ONE ×2 (19:30→22:00)
[2020-11-28] MEDS ORDERED: KETOROLAC 15 MG/ML VIAL. IVP ONE (19:30)
[2020-11-28] MEDS ORDERED: DEXAMETHASONE 4 MG TABLET PO ONE (19:30)
[2020-11-28] MEDS ORDERED: ONDANSETRON PF 4 MG/2 ML VIAL. IVP ONE (19:30)
--- NOTE | 2020-11-28 19:42 | PHYS DOC ---
Past History Past Medical History: Hepatitis, Liver Disease, Migraines, Ovarian Cyst, Renal Disease, STD, UTI, Other Additional Past Medical Histor: HIATAL HERNIA Past Surgical History: Cholecystectomy, , Gastric Bypass, Hysterectomy Additional Past Surgical Histo: GASTRIC SLEEVE TO GASTRIC BYPASS Smoking: Non-smoker Alcohol Use: None Drug Use: Opiates Adult General Chief Complaint Chief Complaint: SHORTNESS OF BREATH HPI HPI Patient is a 45-year-old female with a past medical history significant for autoimmune hepatitis on mycophenolate who was diagnosed with Covid 3 days ago who presents with a chief complaint of shortness of breath and pleuritic chest pain for the last 2 days. States she has had fevers at home. States that today she started having more difficulty breathing. States she is had some nausea as well, but no vomiting and a decreased appetite. States she is making urine and stool with no issues. States she is taking all her medications as prescribed. Review of Systems Review of Systems Constitutional: Denies fever or chills [] Eyes: Denies change in visual acuity, redness, or eye pain [] HENT: Denies nasal congestion or sore throat [] Respiratory: Denies cough or shortness of breath [] Cardiovascular: No additional information not addressed in HPI [] GI: Denies abdominal pain, nausea, vomiting, bloody stools or diarrhea [] : Denies dysuria or hematuria [] Musculoskeletal: Denies back pain or joint pain [] Integument: Denies rash or skin lesions [] Neurologic: Denies headache, focal weakness or sensory changes [] Endocrine: Denies polyuria or polydipsia [] All other systems were reviewed and found to be within normal limits, except as documented in this note. Current Medications Current Medications Current Medications Medications (Trade) Dose Ordered Sig/Erick Start Time Stop Time Status Last Admin Dose Admin Dexamethasone (Decadron) 10 mg 1X ONCE 11/28/20 19:30 11/28/20 19:31 UNV Ketorolac Tromethamine (Toradol 15mg Vial) 15 mg 1X ONCE 11/28/20 19:30 11/28/20 19:31 UNV Lactated Ringer's 1,000 ml @ 1,000 mls/hr 1X ONCE 11/28/20 19:30 11/28/20 20:29 UNV Levofloxacin/ Dextrose 150 ml @ 100 mls/hr 1X ONCE 11/28/20 19:30 11/28/20 20:59 UNV Morphine Sulfate (Morphine 2mg Syringe) 2 mg 1X ONCE 11/28/20 19:30 11/28/20 19:31 UNV Ondansetron HCl (Zofran) 8 mg 1X ONCE 11/28/20 19:30 11/28/20 19:31 UNV Allergies Allergies Allergies Coded Allergies Type Severity Reaction Last Updated Verified No Known Drug Allergies 01/18/19 No Physical Exam Physical Exam Constitutional: Well developed, well nourished, no acute distress, non-toxic appearance. [] HENT: Normocephalic, atraumatic, bilateral external ears normal, oropharynx moist, no oral exudates, nose normal. [] Eyes: conjunctiva normal, no discharge. [] Cardiovascular: Sinus tachycardia Lungs & Thorax: Bilateral global rhonchi Abdomen: soft, no tenderness, no masses, no pulsatile masses. [] Skin: Warm, dry, no erythema, no rash. [] Back: No tenderness, no CVA tenderness. [] Extremities: No tenderness, no cyanosis, no clubbing, ROM intact, no edema. [] Neurologic: Alert and oriented X 3, no focal deficits noted. [] Psychologic: Affect normal, judgement normal, mood normal. [] EKG EKG [] Radiology/Procedures Radiology/Procedures [] FINDINGS: Lungs and Airways: Patchy bilateral consolidations, most pronounced in the lower lobes. Normal central airways. Pleura: The pleural spaces are normal. Heart and Mediastinum: The visualized thyroid gland is normal in size and attenuation. No axillary or supraclavicular lymphadenopathy. No mediastinal, hilar or retrocrural lymphadenopathy. The heart and pericardium are within normal limits. The great vessels of the thorax are normal. Abdomen: Cholecystectomy. Postsurgical changes involving the stomach. Bones and Soft Tissues: The visualized skeletal structures and soft tissues of the chest wall are within normal limits. IMPRESSION: Patchy bilateral consolidations, most pronounced in the lower lobes, likely multifocal infection. Electronically signed by: Cedric Ayala MD (11/28/2020 9:18 PM) [facility] Heart Score C/O Chest Pain: N/A Risk Factors: Risk Factors: DM, Current or recent (<one month) smoker, HTN, HLP, family history of CAD, obesity. Risk Scores: Risk Factors: DM, Current or recent (<one month) smoker, HTN, HLP, family history of CAD, obesity. Course & Med Decision Making Course & Med Decision Making Patient is a 45-year-old female presents to the emergency department Covid positive with shortness of breath Vital signs notable for sinus tachycardia, tachypnea and hypoxia on room air on 6 L nasal cannula to bring her into the low 90s. Placed on the monitor with IV access established and IV fluid begun. Given steroids. Given Toradol. Given morphine. Given Zofran. Blood cultures obtained. Given broad-spectrum antibiotics. CT of the chest suggestive of bilateral lower lobe pneumonia. Able to titrate down to 4 L nasal cannula. Discussed findings with patient and recommended admission to [facility] ICU for continued evaluation and treatment of her pneumonia secondary most likely to her Covid, as [facility] has no beds available. Talk to Dr. Cannon who accepted the patient but asked if we could keep her in the ED here overnight until he discharged and patient's in the morning. Agreed and kept patient in the ED overnight and will admit to [facility] in the morning after [facility] ICU discharges patients from their ICU. On reassessment 24 hours later, patient awake alert and oriented, eating and drinking and doing well. Oxygen titrated from 10 L down to 2 L with current vital signs tachycardic to 103, 126/84, saturating 94% on 2 L. Got her Levaquin and steroids again today. Called and discussed patient with Dr. Issa for admission to [facility] to continue management for Covid pneumonia. Dr. Mac accepted to [facility]. Dragon Disclaimer Dragon Disclaimer This electronic medical record was generated, in whole or in part, using a voice recognition dictation system. Departure Departure: Impression: Primary Impression: Respiratory distress Additional Impressions: Lab test positive for detection of COVID-19 virus Pneumonia Disposition: 02 SHORT TERM HOSPITAL Admitting Physician: Rocael Issa, Other Condition: IMPROVED Referrals: BIRD JERONIMO MD (PCP) Problem Qualifiers BONNIE GUNTER MD Nov 28, 2020 19:42
[2020-11-28 20:34] LABS: BASO % 1 % (0-3); EOS % 0 % (0-3); HEMATOCRIT 39.3 % (36.0-47.0); HEMOGLOBIN 12.6 g/dL (12.0-15.5); LYMPH # 0.9 x10^3/uL (1.0-4.8); LYMPH % 22 % (24-48); MEAN CORPUSCULAR HEMOGLOBIN 30 pg (25-35); MEAN CORPUSCULAR HGB CONC 32 g/dL (31-37); MEAN CORPUSCULAR VOLUME 93 fL (79-100); MONO # 0.4 x10^3/uL (0.0-1.1); MONO % 11 % (0-9); NEUT # 2.6 x10^3uL (1.8-7.7); NEUT % 66 % (31-73); PLATELET COUNT 151 x10^3/uL (140-400); RED BLOOD COUNT 4.24 x10^6/uL (3.50-5.40); WHITE BLOOD COUNT 3.9 x10^3/uL (4.0-11.0)
[2020-11-28 20:38] LABS: CREATININE 1.3 mg/dL (0.6-1.0); GFR 53.8; POTASSIUM 3.9 mmol/L (3.5-5.1)
[2020-11-28 20:55] LABS: ALBUMIN 2.9 g/dL (3.4-5.0); ALBUMIN/GLOBULIN RATIO 0.5 (1.0-1.7); MAGNESIUM 2.3 mg/dL (1.8-2.4); TOTAL BILIRUBIN 0.4 mg/dL (0.2-1.0); TOTAL PROTEIN 8.2 g/dL (6.4-8.2)
--- NOTE | 2020-11-28 21:20 | RAD ---
CT THORAX WO INDICATION: covid +, short of breath COMPARISON STUDY: None. TECHNIQUE: Unenhanced axial images were obtained through the lungs and upper abdomen. Coronal and sa gittal multiplanar reconstructions were also obtained. PQRS compliance statement: One or more of the following individualized dose reduction techniques were utilized for this examinat ion: 1. Automated exposure control 2. Adjustment of the mA and/or kV according to patient size 3. Use of iterative reconstruction technique FINDINGS: Lungs and Airways: Patchy bilateral consolidations, most pronounced in the lower lobes. Normal centra l airways. Pleura: The pleural spaces are normal. Heart and Mediastinum: The visualized thyroid gland is normal in size and attenuation. No axillary or supraclavicular lymphadenopathy. No mediastinal, hilar or retrocrural lymphadenopathy. The heart and pericardium are within normal limits. The great vessels of the thorax are normal. Abdomen: Cholecystectomy. Postsurgical changes involving the stomach. Bones and Soft Tissues: The visualized skeletal structures and soft tissues of the chest wall are wit hin normal limits. IMPRESSION: Patchy bilateral consolidations, most pronounced in the lower lobes, likely multifocal infection. Electronically signed by: Cedric Ayala MD (11/28/2020 9:18 PM) [facility]
[2020-11-28] MEDS ORDERED: ACETAMINOPHEN 500 MG TABLET PO ONE ×2 (21:59→22:00)
[2020-11-28] MEDS ORDERED: MORPHINE SULFATE 4 MG/ML DISP.SYRIN. ONE (22:00)
[2020-11-28] MEDS: MORPHINE SULFATE 4 MG/ML DISP.SYRIN. IV PRN (22:04)
[2020-11-29] MEDS: MORPHINE SULFATE 4 MG/ML DISP.SYRIN. IV PRN ×4 (07:25→20:36)
[2020-11-29] MEDS ORDERED: DEXAMETHASONE SOD PHOS 10 MG/ML VIAL. PO ONE (18:15)
[2020-11-29] MEDS ORDERED: ONDANSETRON PF 4 MG/2 ML VIAL. IVP PRN (20:00)
[2020-11-29 21:10] VITALS: BP 129/98
[2020-11-29 22:05] VITALS: BP 125/95
[2020-11-29 23:35] VITALS: BP 129/100
[2020-11-30] VITALS (24 sets, daily range): BP systolic 116–163; BP diastolic 78–120
[2020-11-30] MEDS ORDERED: BENZ-8 PO (01:02)
[2020-11-30] MEDS ORDERED: ESCI10TA90 PO (01:02)
[2020-11-30] MEDS ORDERED: NAPR-514 PO (01:02)
[2020-11-30] MEDS ORDERED: PANT40TA6 PO (01:02)
[2020-11-30] MEDS ORDERED: MYCO250C44 PO (01:02)
[2020-11-30] MEDS ORDERED: CIME200T6 PO (01:02)
[2020-11-30] MEDS ORDERED: DICL100G28 TP (01:02)
[2020-11-30] MEDS ORDERED: FURO20TA3 PO (01:02)
[2020-11-30] MEDS ORDERED: URSO300C26 PO (01:02)
[2020-11-30] MEDS ORDERED: ERGO500090 PO (01:02)
[2020-11-30] MEDS ORDERED: PROM25TA10 PO (01:02)
[2020-11-30] MEDS ORDERED: OLAN15TA15 PO (01:02)
[2020-11-30] MEDS ORDERED: SUCR1TAB PO (01:02)
[2020-11-30] MEDS ORDERED: PROC10TA2 PO (01:02)
[2020-11-30] MEDS ORDERED: DIPH50CA PO (01:02)
[2020-11-30] MEDS ORDERED: COLE1TAB2 PO (01:02)
[2020-11-30] MEDS ORDERED: FAMO40TA4 PO (01:02)
[2020-11-30] MEDS ORDERED: CYCL-331 PO (01:02)
[2020-11-30] MEDS ORDERED: ONDA8TAB15 PO (01:02)
[2020-11-30] MEDS ORDERED: ZOLP10TA PO (01:02)
[2020-11-30] MEDS ORDERED: PROG200C10 PO (01:02)
[2020-11-30] MEDS: MORPHINE SULFATE 2 MG/ML DISP.SYRIN. IVP PRN ×2 (05:19→09:22)
[2020-11-30] MEDS ORDERED: PRED5TAB PO (06:13)
[2020-11-30] MEDS ORDERED: ESTR1VAG7 VAG (06:13)
[2020-11-30 07:44] LABS: BASO % 1 % (0-3); EOS % 0 % (0-3); HEMATOCRIT 37.2 % (36.0-47.0); HEMOGLOBIN 12.1 g/dL (12.0-15.5); LYMPH # 0.7 x10^3/uL (1.0-4.8); LYMPH % 12 % (24-48); MEAN CORPUSCULAR HEMOGLOBIN 30 pg (25-35); MEAN CORPUSCULAR HGB CONC 32 g/dL (31-37); MEAN CORPUSCULAR VOLUME 92 fL (79-100); MONO # 0.4 x10^3/uL (0.0-1.1); MONO % 8 % (0-9); NEUT # 4.4 x10^3uL (1.8-7.7); NEUT % 79 % (31-73); PLATELET COUNT 181 x10^3/uL (140-400); RED BLOOD COUNT 4.03 x10^6/uL (3.50-5.40); RED CELL DISTRIBUTION WIDTH 13.7 % (11.5-14.5); WHITE BLOOD COUNT 5.6 x10^3/uL (4.0-11.0)
[2020-11-30 07:53] LABS: CALCIUM 8.1 mg/dL (8.5-10.1); CREATININE 1.1 mg/dL (0.6-1.0); GFR 65.3; POTASSIUM 4.1 mmol/L (3.5-5.1)
[2020-11-30] MEDS ORDERED: ALBUTEROL SULFATE 2.5 MG/3 ML NEBU. ONE (08:08)
[2020-11-30] MEDS ORDERED: ALBUTEROL SULFATE 2.5 MG/3 ML NEBU. NEB PRN (08:15)
[2020-11-30] MEDS: LACTOBACILLUS RHAMNOSUS GG 1 CAPSULE. PO SCH ×2 (09:00→21:03)
[2020-11-30] MEDS: DEXAMETHASONE SOD PHOS 10 MG/ML VIAL. PO SCH ×2 (09:41→21:03)
[2020-11-30] MEDS: ACETAMINOPHEN 325 MG TABLET PO PRN (09:42)
[2020-11-30] MEDS ORDERED: methylPREDNISolone SOD SUCC PF 125 MG/2 ML VIAL. IV ONE (10:00)
--- NOTE | 2020-11-30 10:20 | HP ---
ADMIT DATE: 11/29/2020 ATTENDING PHYSICIAN: Dr. Issa. CHIEF COMPLAINT: Shortness of breath. HISTORY OF PRESENT ILLNESS: The patient is a 45-year-old female with multiple medical issues. She has had increasing shortness of breath and was actually in the Emergency Room for about 24 hours. They were in the process of trying to get her transferred to [facility] for higher level of care. Unfortunately, a bed is not available. She got a little better, was admitted to our hospital overnight with anticipation of probable transfer when a bed opens up. She has COVID pneumonia, pretty extensive, CT of the chest demonstrated bilateral infiltrates with consolidation of the right lower lobe. She was given Levaquin, steroids, and breathing treatments with marginal improvement. She is still requiring anywhere between 5-12 liters of supplemental oxygen. PAST MEDICAL HISTORY: Significant for autoimmune liver disease. There is a history of chronic pain syndrome, constipation due to opioids. She is on immunocompromised drugs. MEDICATIONS: Include cimetidine, colestipol, Flexeril, diclofenac gel, vitamin D2, citalopram, famotidine, Lasix, Synthroid, mycophenolate, Naprosyn, olanzapine, Protonix, prednisone, prochlorperazine, promethazine, Carafate, ursodiol, and zolpidem. SOCIAL HISTORY: She is a nonsmoker. No drinking history. FAMILY HISTORY: Unobtainable. REVIEW OF SYSTEMS: Significant for the cough, congestion, shortness of breath, dyspnea with very minimal exertion. All other systems reviewed and turned out to be negative. PHYSICAL EXAMINATION: GENERAL: When I saw her, this is a chronically ill-appearing female, appearing older than stated age. INITIAL VITAL SIGNS: Blood pressure 125/91, pulse is 113 and , temperature 98.9 degrees Fahrenheit, oxygen saturation 91% between 5-12 liters supplemental oxygen. HEENT: Head is without trauma. Pupils are reactive. Sclerae nonicteric. Oropharynx clear. NECK: Supple. LUNGS: Coarse rhonchi in both the lower airways with diminished lung air movement. CARDIOVASCULAR: Showed tachycardic rhythm. No gallops. ABDOMEN: Soft. EXTREMITIES: Without edema. NEUROLOGIC FINDINGS: Focally intact. SKIN: Warm and dry. PERTINENT LABORATORY AND X-RAY STUDIES: CT of the chest as noted. Hemoglobin on admission was 12.6 grams, white count 3900. Electrolytes within normal range. Creatinine 1.1 mg/dL. Transaminases: Alkaline phosphatase is 1200. AST, ALT, 169 and 101 respectively. Bilirubin is 0.4. ASSESSMENT: 1. A 45-year-old female with acute on chronic respiratory failure requiring high supplemental oxygen. 2. Autoimmune hepatitis. 3. Tachyarrhythmia. 4. Degenerative arthritis. PLAN: 1. Admit to our ICU. 2. We will try to wean down her supplemental oxygen. 3. Continue Levaquin and Decadron as ordered. 4. We are also trying still to get her to a higher level of care. SALONI/DYAN/FELIX DR: Joon TID: [id number] CC: BIRD JEORNIMO MD
[2020-11-30] MEDS: ENOXAPARIN 30 MG/0.3 ML SYRINGE. SQ ONE ×3 (11:45→14:45)
[2020-11-30] MEDS: IPRATRPIUM/ALBUTEROL 0.5/2.5MG 3 ML NEBU. NEB SCH ×3 (11:49→21:04)
[2020-11-30] MEDS: MORPHINE SULFATE 4 MG/ML DISP.SYRIN. IV PRN ×3 (14:14→22:38)
[2020-11-30] MEDS ORDERED: REMDESIVIR LOAD in IV NORMAL SALINE 250ML TV IV ONE (19:30)
--- NOTE | 2020-11-30 20:49 | DS ---
DATE OF DISCHARGE: 11/30/2020 ATTENDING PHYSICIAN: Dr. Issa. FINAL DISCHARGE DIAGNOSES: 1. Acute on chronic respiratory failure. 2. Bilateral COVID pneumonia. 3. Immunocompromised due to underlying liver disease. 4. Autoimmune hepatitis. 5. Essential hypertension. 6. History of migraines. 7. Frequent urinary tract infections. 8. Previous , gastric bypass, and hysterectomy. HISTORY AND PHYSICAL: The patient is a 45-year-old female with chronic medical issues. She presented with a 3-day history of increasing shortness of breath, pleuritic type chest pain and fever. She has had a nonproductive cough. In the ED, the workup showed bilateral infiltrates with some consolidation in the right lung, atypical pneumonia consistent with COVID pneumonia. She was admitted for further treatment. Initially, they had wanted her to go to [facility]. A bed was not available. She got a little better and was sent here. PAST MEDICAL HISTORY: Significant for chronic immunosuppression due to autoimmune hepatitis. She has migraines and multiple surgeries. PHYSICAL EXAMINATION: Please see the dictated note. PERTINENT LABORATORY AND X-RAY STUDIES: On this admission, her hemoglobin was 12.1 g/dL, white count 5600. Electrolytes: Sodium 137, potassium 4.1 mEq, creatinine 1.1 mg percent. Blood sugars were normal. Transaminase alkaline phosphatase 1212, transaminase slightly elevated, bilirubin 0.4. The CT of the chest done on the evening of admission showed patchy bilateral consolidations, most pronounced in the lower lobes, multifocal infection identified. COURSE IN THE HOSPITAL: The patient was initially in the ED for about 24 hours. She had no beds available. She improved to a point where they were down to 2 liters of supplemental oxygen. She was admitted to our hospital ICU; however, she regressed the bed and required supplemental oxygen. She still was in respiratory failure requiring 12 liters high flow oxygen by cannulas. She did receive Levaquin and Decadron. I gave an extra dose of Solu-Medrol. She was still dyspneic and tachycardic at rest. She has impending respiratory failure. Therefore, I contacted the [facility] hospitalist group, Dr. Chauhan, who took the call and accepted the patient. We are still waiting for a bed to open up. She was discharged then with Levaquin 750 IV daily. I offered Lovenox. She declined. She will continue her mycophenolate as scheduled. She was discharged then from our hospital via ambulance to go to [facility] with explicit instruction for followup care. SOREN DR: Joon TID: [id number] CC: BIRD JERONIMO MD
[2020-12-01] MEDS ORDERED: REMDESIVIR 100mg in NORMAL SALINE 250ML X 4 DAYS IV SCH (19:30)
== END 2020-11-30 23:15 | disposition short-term general hospital (02) | DRG 177 ==
LOC: ER 19:23 → ICU 11-29 20:07
PROVIDERS: ADMIT Hospitalist; ATTEND Hospitalist
PROC: 5A0935A Assistance with Respiratory Ventilation, Less than 24 Consecutive Hours, High Flow/Velocity Cannula (ICD-10-PCS; 2020-11-29)
PROC: XW033E5 Introduction of Remdesivir Anti-infective into Peripheral Vein, Percutaneous Approach, New Technology Group 5 (ICD-10-PCS; principal; 2020-11-30)
PROC: 5A0935A Assistance with Respiratory Ventilation, Less than 24 Consecutive Hours, High Flow/Velocity Cannula (ICD-10-PCS; 2020-11-30)
DX: U07.1 COVID-19 (principal); J12.82 Pneumonia due to coronavirus disease 2019; J96.20 Acute and chronic respiratory failure, unspecified whether with hypoxia or hypercapnia; D84.9 Immunodeficiency, unspecified; M19.90 Unspecified osteoarthritis, unspecified site; I10 Essential (primary) hypertension; G43.909 Migraine, unspecified, not intractable, without status migrainosus; G89.4 Chronic pain syndrome; K75.4 Autoimmune hepatitis; Z98.891 History of uterine scar from previous surgery; Z98.84 Bariatric surgery status; Z90.710 Acquired absence of both cervix and uterus; Z87.440 Personal history of urinary (tract) infections; Z90.49 Acquired absence of other specified parts of digestive tract; Y92.89 Other specified places as the place of occurrence of the external cause; K75.9 Inflammatory liver disease, unspecified; K44.9 Diaphragmatic hernia without obstruction or gangrene
CPT/HCPCS: 36415; 71250; 80048; 80053; 83605; 83735; 85025; 94640; 96365; 96375; 96376; J1100; J1650; J1885; J1956; J2270; J2405; J2930; J7050; J7120; J8540; 99285-25; J7613

== ENCOUNTER 2021-06-23 12:13 | Emergency (ER) | payer OTHER ==
[~2021-06-23] VITALS: Ht 152.4 cm; Wt 77.5 kg
[~2021-06-23 12:13] MED LIST changes: +CIME200T6 PO; +COLE1TAB2 PO; +CYCL10TA19 PO; +DICL100G28 TP; -DIPH50CA PO; +DIPH50CA16 PO; +ERGO500090 PO; +ESCI10TA90 PO; +ESTR1VAG7 VAG; +FAMO40TA4 PO; +MYCO250C44 PO; +OLAN15TA15 PO; +ONDA8TAB15 PO; +PANT40TA6 PO; +PRED5TAB PO; +PROC10TA2 PO; +PROG200C10 PO; +PROM25TA10 PO; +SUCR1TAB PO; +ZOLP10TA PO
[2021-06-23 12:43] VITALS: BP 110/76
[2021-06-23] MEDS ORDERED: IOHEXOL 300 MG/ML 75 ML VIAL. IV ONE (13:15)
--- NOTE | 2021-06-23 13:16 | PHYS DOC ---
Past History Past Medical History: Hepatitis, Liver Disease, Migraines, Ovarian Cyst, Renal Disease, STD, UTI, Other Additional Past Medical Histor: HIATAL HERNIA, Past Surgical History: Cholecystectomy, , Gastric Bypass, Hysterectomy, Tubal ligation Additional Past Surgical Histo: GASTRIC SLEEVE TO GASTRIC BYPASS Smoking: Non-smoker Alcohol Use: None Drug Use: Opiates General Adult EDM: Chief Complaint: ABDOMINAL PAIN HPI: HPI: Patient is a 46-year-old female who presents to the emergency department today for abdominal pain. Patient is reporting right upper quadrant pain that radiates to her right flank that she rates 10 out of 10 with nausea and vomiting. She is also reporting left-sided chest pain that has been intermittent for the last 3 weeks. She describes it as sharp shooting pain and it is worse with belching. Patient has oxycodone at home that she has been taking but states it is not helping her pain. Patient's primary care provider is Dr. Griffin. She has a history of liver failure and she reports that her right upper quadrant tenderness is similar to the pain she usually feels. Patient denies diarrhea, urinary symptoms, fever. Review of Systems: Review of Systems: Constitutional: See HPI Cardiovascular: See HPI GI: See HPI : See HPI Current Medications: Current Meds: Current Medications Medications (Trade) Dose Ordered Sig/Erick Start Time Stop Time Status Last Admin Dose Admin Fentanyl Citrate (Fentanyl 2ml Vial) 50 mcg 1X ONCE 06/23/21 13:00 06/23/21 13:02 DC Allergies: Allergies: Allergies Coded Allergies Type Severity Reaction Last Updated Verified No Known Drug Allergies 01/18/19 No Physical Exam: PE: Constitutional: Well developed, well nourished, no acute distress, non-toxic appearance. [] HENT: Normocephalic, atraumatic, bilateral external ears normal, oropharynx moist, no oral exudates, nose normal. [] Eyes: PERRL, EOMI, conjunctiva normal, no discharge. [] Neck: Normal range of motion, no stridor Cardiovascular:Heart rate regular rhythm, no murmur, left-sided chest pain reproducible with palpation [] Lungs & Thorax: Bilateral breath sounds clear to auscultation [] Abdomen: Bowel sounds normal, soft, abdomen, tenderness to right upper quadrant,, no abdominal rigidity, no guarding, no masses, no pulsatile masses. [] Skin: Warm, dry, no erythema, no rash. [] Back: No tenderness, no CVA tenderness. [] Extremities: No tenderness, no cyanosis, no clubbing, ROM intact, no edema. [] Neurologic: Alert and oriented X 3, normal motor function, normal sensory function, no focal deficits noted. [] Psychologic: Affect normal, judgement normal, mood normal. [] Current Patient Data: Labs: Laboratory Tests Test 06/23/21 13:28 White Blood Count 6.4 x10^3/uL Red Blood Count 3.43 x10^6/uL Hemoglobin 10.2 g/dL Hematocrit 32.3 % Mean Corpuscular Volume 94 fL Mean Corpuscular Hemoglobin 30 pg Mean Corpuscular Hemoglobin Concent 32 g/dL Red Cell Distribution Width 15.3 % Platelet Count 273 x10^3/uL Neutrophils (%) (Auto) 56 % Lymphocytes (%) (Auto) 32 % Monocytes (%) (Auto) 7 % Eosinophils (%) (Auto) 2 % Basophils (%) (Auto) 2 % Neutrophils # (Auto) 3.6 x10^3uL Lymphocytes # (Auto) 2.1 x10^3/uL Monocytes # (Auto) 0.5 x10^3/uL Eosinophils # (Auto) 0.1 x10^3/uL Basophils # (Auto) 0.1 x10^3/uL Sodium Level 139 mmol/L Potassium Level 4.9 mmol/L Chloride Level 106 mmol/L Carbon Dioxide Level 22 mmol/L Anion Gap 11 Blood Urea Nitrogen 15 mg/dL Creatinine 0.9 mg/dL Estimated GFR (Cockcroft-Gault) 81.9 BUN/Creatinine Ratio 17 Glucose Level 76 mg/dL Lactic Acid Level 1.0 mmol/L Calcium Level 8.7 mg/dL Total Bilirubin 0.3 mg/dL Aspartate Amino Transf (AST/SGOT) 62 U/L Alanine Aminotransferase (ALT/SGPT) 61 U/L Alkaline Phosphatase 545 U/L Ammonia 46 mcmol/L Troponin I High Sensitivity 27 ng/L Total Protein 7.9 g/dL Albumin 2.9 g/dL Albumin/Globulin Ratio 0.6 Lipase 119 U/L Current Medications Medications (Trade) Dose Ordered Sig/Erick Route PRN Reason Start Time Stop Time Status Last Admin Dose Admin Fentanyl Citrate (Fentanyl 2ml Vial) 50 mcg 1X ONCE IVP 06/23/21 13:00 06/23/21 13:02 DC 06/23/21 14:02 Iohexol (Omnipaque 300 Mg/ml) 75 ml 1X ONCE IV 06/23/21 13:15 06/23/21 13:21 DC 06/23/21 13:51 Info (Do NOT chart on this entry -- for MONITORING) 1 each PRN DAILY PRN MC SEE COMMENTS 06/23/21 13:30 06/25/21 13:29 Vital Signs: Vital Signs Date Time Temp Pulse Resp B/P (MAP) Pulse Ox O2 Delivery O2 Flow Rate FiO2 06/23/21 12:43 98.1 110/76 (87) EKG: EKG: EKG performed by ER staff at 1334 shows sinus rhythm with a rate of 79, QTc of 439, no STEMI read by Dr. Jacobson at 1335, when compared to previous EKG there are some changes therefore BP was performed at 1509 and it shows sinus rhythm with rate of 72, QTC of 429 but looks similar to previous EKG, this was read by Dr. Jacobson at 1510. [] Radiology/Procedures: Radiology/Procedures: []PROCEDURE: PORTABLE CHEST 1V EXAM: Chest, single view. HISTORY: Chest pain. COMPARISON: 01/18/2019 FINDINGS: A frontal view of the chest is obtained. There is linear atelectasis within the left mid an lower thorax. There is no consolidation, pleural effusion or pneumothorax. There is a stable cardiac silhouette. IMPRESSION: Suspected left mid and lower lung atelectasis. Electronically signed by: Fauzia Sargent MD (06/23/2021 1:48 PM) [id number] DICTATED AND SIGNED BY: FAUZIA SARGENT MD DATE: 06/23/21 1348 CC: NAILA SOLIS APRN; BIRD GRIFFIN MD ~ ROCEDURE: CT ABD PELV W/ IV CONTRST ONLY Exam: CT of abdomen and pelvis with contrast INDICATION: Right upper quadrant pain, history of liver failure, right flank pain TECHNIQUE: Sequential axial images through the abdomen and pelvis obtained following the administration of 70 Isovue-370 IV contrast. Sagittal and coronal reformatted images were reconstructed from the axial data and reviewed. Exposure: One or more of the following in the visualized dose reduction techniques were utilized for this examination: 1. Automated exposure control 2. Adjustment of the MA and/or KV according to patient size 3. Use of iterative of reconstructive technique Comparisons: 10/19/2020 FINDINGS: Heart size is normal. No pericardial effusion. Visualized lung bases are clear. No pleural effusion. Liver, spleen, pancreas and adrenals are unremarkable. Gallbladder is surgically absent. No perinephric inflammation or hydronephrosis. No renal or ureteral calculi are identified. Bladder is partially distended and appears thin-walled. Uterus is not enlarged. No abnormal adnexal mass. Moderate amount stool noted in colon. Appendix is normal. Postoperative changes of gastric bypass. Small bowel is unremarkable. No free intra-abdominal air. No obstruction. Abdominal aorta has a normal course and caliber. Abdominal vasculature is patent. No enlarged intra-abdominal lymph nodes are identified. No suspicious osseous lesions or acute fractures. IMPRESSION: 1. Postoperative changes of gastric bypass. There is swirling of the mesenteric vessels noted in the midabdomen. Findings could relate to volume loss. Correlate with symptomatology. 2. Moderate amount stool noted throughout the colon. Electronically signed by: Anderson Silva MD (06/23/2021 3:15 PM) [facility] DICTATED AND SIGNED BY: ANDERSON SILVA MD DATE: 06/23/21 [id number] CC: NAILA SOLIS APRN; IBRD GRIFFIN MD ~ Heart Score: C/O Chest Pain: Yes HEART Score for Chest Pain: HEART Score for Chest Pain Response (Comments) Value History Slighlty/Non-Suspicious 0 Age < 45 0 Risk Factors 1 or 2 Risk Factors 1 Troponin < Normal Limit 0 Total 1 Risk Factors: Risk Factors: DM, Current or recent (<one month) smoker, HTN, HLP, family history of CAD, obesity. Risk Scores: Score 0 - 3: 2.5% MACE over next 6 weeks - Discharge Home Score 4 - 6: 20.3% MACE over next 6 weeks - Admit for Clinical Observation Score 7 - 10: 72.7% MACE over next 6 weeks - Early Invasive Strategies Course & Med Decision Making: Course & Med Decision Making Pertinent Labs and Imaging studies reviewed. (See chart for details) [] Patient presents to the emergency department for right upper quadrant pain that radiates to her right flank as well as left-sided chest pain that has been intermittent for 3 weeks. Patient has a history of liver disease and failure due to hepatitis and reports that these symptoms are similar with her pain that she experiences but she has been taking her oxycodone at home and it has not relieved her pain. Work-up in the ER consisted of blood work, EKG, chest x-ray, CT imaging of abdomen and pelvis. Patient treated with IV fluids, nausea and pain medication. Patient has not had any vomiting while in the emergency department. Patient is noted to have mild anemia with a hemoglobin of 10.2 and hematocrit of 32.3. Mild elevation of LFTs. Ammonia was 46. Patient had a negative troponin. Patient's chest pain started 3 weeks ago so no need for delta troponins. Chest pain is likely musculoskeletal related as it is worse with belching and is reproducible with palpation. CT abdomen shows moderate stool. Patient advised to take MiraLAX. Patient is requesting pain medication for home as she reports that she is almost out of her medications. I told her that I would prescribe her some pain medication until she followed up with her primary care provider but informed her that narcotic pain medication may cause delayed transit and may worsen her constipation. Patient's vital signs are stable. Discussed case with supervising physician. I discussed with patient all findings and diagnostic testing as well as the need to follow-up with PCP for further evaluation and treatment or return to the ER if any new or worsening symptoms. Strict return precautions were also discussed at length. Patient vo iced understanding and agreement with the plan. Patient is hemodynamically stable at the time of disposition. Dragon Disclaimer: Bing Disclaimer: This electronic medical record was generated, in whole or in part, using a voice recognition dictation system. Departure Departure: Impression: Primary Impression: Constipation Qualified Codes: K59.03 - Drug induced constipation Additional Impression: Abdominal pain Qualified Codes: R10.11 - Right upper quadrant pain Disposition: 01 HOME / SELF CARE / HOMELESS Condition: GOOD Referrals: BIRD GRIFFIN MD (PCP) Patient Instructions: Constipation, Adult, Liver Disease Diet Additional Instructions: You were seen in the emergency department today for nausea, vomiting and abdominal pain. As discussed, you are noted to have a moderate amount of stool. Please take MiraLAX daily to help with your constipation. Increase your fluids. As we discussed, narcotic pain medication may cause delayed transit and attributed to constipation. You are being discharged home with some pain medication. Take this as directed. This medication may cause sedation so do not take when you need to be alert, driving a vehicle or with alcohol. Please follow-up with your primary care provider tomorrow regarding your ER visit. I would also contact your GI specialist who manages your liver failure. Return to the emergency department if you develop worsening of your abdominal pain, intractable nausea or vomiting, confusion, high fevers refractory to treatment, blood in your stools or vomit, increased abdominal swelling, weakness or any new or worsening concerns. Scripts Hydrocodone Bit/Acetaminophen (HYDROCODONE-APAP 5-325 ) 1 Each Tablet 1 TAB PO PRN Q6HRS PRN for PAIN for 2 Days, #8 TAB 0 Refills Prov: NAILA SOLIS APRN 06/23/21 NAILA SOLIS APRN Jun 23, 2021 13:16
[2021-06-23] MEDS ORDERED: CONTRAST GIVEN. MC PRN (13:30)
--- NOTE | 2021-06-23 13:51 | RAD ---
EXAM: Chest, single view. HISTORY: Chest pain. COMPARISON: 01/18/2019 FINDINGS: A frontal view of the chest is obtained. There is linear atelectasis within the left mid an lower thorax. There is no consolidation, pleural effusion or pneumothorax. There is a stable cardiac silhouette. IMPRESSION: Suspected left mid and lower lung atelectasis. Electronically signed by: Fauzia Barrow MD (06/23/2021 1:48 PM) [id number]
[2021-06-23 14:15] LABS: BASO # 0.1 x10^3/uL (0.0-0.2); BASO % 2 % (0-3); EOS # 0.1 x10^3/uL (0.0-0.7); EOS % 2 % (0-3); HEMATOCRIT 32.3 % (36.0-47.0); HEMOGLOBIN 10.2 g/dL (12.0-15.5); LYMPH # 2.1 x10^3/uL (1.0-4.8); LYMPH % 32 % (24-48); MEAN CORPUSCULAR HEMOGLOBIN 30 pg (25-35); MEAN CORPUSCULAR HGB CONC 32 g/dL (31-37); MEAN CORPUSCULAR VOLUME 94 fL (79-100); MONO # 0.5 x10^3/uL (0.0-1.1); MONO % 7 % (0-9); NEUT # 3.6 x10^3uL (1.8-7.7); NEUT % 56 % (31-73); PLATELET COUNT 273 x10^3/uL (140-400); RED BLOOD COUNT 3.43 x10^6/uL (3.50-5.40); RED CELL DISTRIBUTION WIDTH 15.3 % (11.5-14.5); WHITE BLOOD COUNT 6.4 x10^3/uL (4.0-11.0)
[2021-06-23 14:27] LABS: CALCIUM 8.7 mg/dL (8.5-10.1); CREATININE 0.9 mg/dL (0.6-1.0); GFR 81.9; POTASSIUM 4.9 mmol/L (3.5-5.1)
[2021-06-23 14:45] LABS: ALBUMIN 2.9 g/dL (3.4-5.0); ALBUMIN/GLOBULIN RATIO 0.6 (1.0-1.7); TOTAL BILIRUBIN 0.3 mg/dL (0.2-1.0); TOTAL PROTEIN 7.9 g/dL (6.4-8.2)
--- NOTE | 2021-06-23 15:18 | RAD ---
Exam: CT of abdomen and pelvis with contrast INDICATION: Right upper quadrant pain, history of liver failure, right flank pain TECHNIQUE: Sequential axial images through the abdomen and pelvis obtained following the administrati on of 70 Isovue-370 IV contrast. Sagittal and coronal reformatted images were reconstructed from the axial data and reviewed. Exposure: One or more of the following in the visualized dose reduction techniques were utilized for this examination: 1. Automated exposure control 2. Adjustment of the MA and/or KV according to patient size 3. Use of iterative of reconstructive technique Comparisons: 10/19/2020 FINDINGS: Heart size is normal. No pericardial effusion. Visualized lung bases are clear. No pleural effusion. Liver, spleen, pancreas and adrenals are unremarkable. Gallbladder is surgically absent. No perinephric inflammation or hydronephrosis. No renal or ureteral calculi are identified. Bladder is partially distended and appears thin-walled. Uterus is not enlarged. No abnormal adnexal m ass. Moderate amount stool noted in colon. Appendix is normal. Postoperative changes of gastric bypass. Sm all bowel is unremarkable. No free intra-abdominal air. No obstruction. Abdominal aorta has a normal course and caliber. Abdominal vasculature is patent. No enlarged intra-abdominal lymph nodes are identified. No suspicious osseous lesions or acute fractures. IMPRESSION: 1. Postoperative changes of gastric bypass. There is swirling of the mesenteric vessels noted in the midabdomen. Findings could relate to volume loss. Correlate with symptomatology. 2. Moderate amount stool noted throughout the colon. Electronically signed by: Anderson Stanford MD (06/23/2021 3:15 PM) [facility]
[2021-06-23] MEDS ORDERED: HYDR-2155 PO (15:32)
--- NOTE | 2021-06-23 21:13 | EKG ---
[address] [address] Test Date: 2021-06-23 Test Time: 13:34:28 Pat Name: AMRIK ANTOINE Department: Room: Gender: F Admissions Rn: BARRON : 1975 Requested By: NAILA SOLIS Order Number: [id number] Reading MD: Measurements Intervals [place] Rate: 79 P: 156 NC: 156 QRS: -175 QRSD: 80 T: 165 QT: 382 QTc: 439 Interpretive Statements SUPRAVENTRICULAR RHYTHM ABNORMAL RIGHT SUPERIOR AXIS DEVIATION ST & T ABNORMALITY, CONSIDER HIGH LATERAL ISCHEMIA OR LEFT VENTRICULAR STRAIN T ABNORMALITY IN INFERIOR LEADS ABNORMAL ECG RI6.01 No previous ECG available for comparison
--- NOTE | 2021-06-23 21:15 | EKG ---
[address] [address] Test Date: 2021-06-23 Test Time: 15:09:26 Pat Name: AMRIK ANTOINE Department: Room: Gender: F Phone Manager: BARRON : 1975 Requested By: NAILA SOLIS Order Number: [id number] Reading MD: Measurements Intervals [place] Rate: 72 P: 0 IA: 158 QRS: -5 QRSD: 86 T: 22 QT: 390 QTc: 429 Interpretive Statements SINUS RHYTHM LEFTWARD AXIS NO SPECIFIC ECG ABNORMALITIES RI6.01 No previous ECG available for comparison
== END 2021-06-23 16:00 | disposition home or self-care (01) ==
LOC: ER 12:13
DX: K59.03 Drug induced constipation (principal); R10.11 Right upper quadrant pain; R11.2 Nausea with vomiting, unspecified; R07.89 Other chest pain; G43.909 Migraine, unspecified, not intractable, without status migrainosus; Z87.440 Personal history of urinary (tract) infections; Z90.49 Acquired absence of other specified parts of digestive tract; Z98.890 Other specified postprocedural states; Z90.710 Acquired absence of both cervix and uterus; Z98.51 Tubal ligation status; Z98.84 Bariatric surgery status
CPT/HCPCS: 36415; 71045; 74177; 80053; 82140; 83605; 83690; 84484; 85025; 93005; 96374; 96376; 99285; J3010; Q9967

== ENCOUNTER 2021-08-27 18:05 | Emergency (ER) | payer OTHER ==
[~2021-08-27] VITALS: Ht 152.4 cm; Wt 77.5 kg
[~2021-08-27 18:05] MED LIST changes: +HYDR-2155 PO
[2021-08-27] MEDS ORDERED: IPRATRPIUM/ALBUTEROL 0.5/2.5MG 3 ML NEBU. NEB ONE (18:30)
[2021-08-27] MEDS ORDERED: IV NORMAL SALINE 1,000ML 1,000 ML IV ONE (18:30)
[2021-08-27] MEDS ORDERED: methylPREDNISolone SOD SUCC PF 125 MG/2 ML VIAL. IV ONE (18:30)
--- NOTE | 2021-08-27 18:31 | PHYS DOC ---
Past History Past Medical History: Hepatitis, Liver Disease, Migraines, Ovarian Cyst, Renal Disease, STD, UTI, Other Additional Past Medical Histor: HIATAL HERNIA, Past Surgical History: Cholecystectomy, , Gastric Bypass, Hysterectomy, Tubal ligation Additional Past Surgical Histo: GASTRIC SLEEVE TO GASTRIC BYPASS Smoking: Non-smoker Alcohol Use: None Drug Use: Opiates Adult General Chief Complaint Chief Complaint: SHORTNESS OF BREATH [facility] HPI Patient is a 46-year-old female presenting to the emergency department via EMS for evaluation of reported shortness of breath. Patient says that she has been on 10 L of oxygen since she was diagnosed with COVID last October. She says that her cough is nonproductive and that she has had no fevers chills nausea or vomiting. She says her only area of pain is in her abdomen which she has chronic abdominal pain from liver failure. Patient has her oxygen on her nose but she is claiming that it is not on. Patient is in no acute distress with normal vital signs. Review of Systems Review of Systems Constitutional: Denies fever or chills [] Eyes: Denies change in visual acuity, redness, or eye pain [] HENT: Denies nasal congestion or sore throat [] Respiratory: Denies cough or shortness of breath [] Cardiovascular: No additional information not addressed in HPI [] GI: Denies abdominal pain, nausea, vomiting, bloody stools or diarrhea [] : Denies dysuria or hematuria [] Musculoskeletal: Denies back pain or joint pain [] Integument: Denies rash or skin lesions [] Neurologic: Denies headache, focal weakness or sensory changes [] Endocrine: Denies polyuria or polydipsia [] All other systems were reviewed and found to be within normal limits, except as documented in this note. Current Medications Current Medications Current Medications Medications (Trade) Dose Ordered Sig/Erick Start Time Stop Time Status Last Admin Dose Admin Albuterol/ Ipratropium (Duoneb) 3 ml 1X ONCE 08/27/21 18:30 08/27/21 18:31 Methylprednisolone Sodium Succinate (SOLU-Medrol 125MG VIAL) 125 mg 1X ONCE 08/27/21 18:30 08/27/21 18:31 Sodium Chloride 1,000 ml @ 1,000 mls/hr 1X ONCE 08/27/21 18:30 5/20/22 19:29 Allergies Allergies Allergies Coded Allergies Type Severity Reaction Last Updated Verified No Known Drug Allergies 01/18/19 No Physical Exam Physical Exam Constitutional: Chronically ill-appearing female in no acute distress HENT: Normocephalic, atraumatic, bilateral external ears normal, oropharynx moist, no oral exudates, nose normal. [] Eyes: PERRLA, EOMI, conjunctiva normal, no discharge. [] Neck: Normal range of motion, no tenderness, supple, no stridor. [] Cardiovascular:Heart rate regular rhythm, no murmur [] Lungs & Thorax: Bilateral breath sounds diminished bilaterally with inspiratory expiratory wheezing. Abdomen: Bowel sounds normal, soft, no tenderness, no masses, no pulsatile masses. [] Skin: Warm, dry, no erythema, no rash. [] Back: No tenderness, no CVA tenderness. [] Extremities: No tenderness, no cyanosis, no clubbing, ROM intact, no edema. [] Neurologic: Alert and oriented X 3, normal motor function, normal sensory function, no focal deficits noted. [] EKG EKG [] Radiology/Procedures Radiology/Procedures [] Heart Score C/O Chest Pain: No Risk Factors: Risk Factors: DM, Current or recent (<one month) smoker, HTN, HLP, family history of CAD, obesity. Risk Scores: Risk Factors: DM, Current or recent (<one month) smoker, HTN, HLP, family history of CAD, obesity. Course & Med Decision Making Course & Med Decision Making Will check labs and imaging treat symptoms and reassess. Patient may have a mild basilar pneumonia on her chest x-ray however her CT read no pulmonary embolism or other acute process. I did discuss all incidental findings on labs and imaging and the need for follow-up. Her labs are unremarkable for acute process as well and she does feel better in the emergency department with resolved shortness of breath but she does have her chronic abdominal pain. This improved with treatment and she had a repeat benign abdominal exam with no focal tenderness rebound or guarding. She continues to have an oxygen saturation of 100% even when her oxygen is dropped to 2 L. Patient says she feels much better and would like to go home. Given she appears well with normal vital signs (except for known hypertension), benign physical exam work-up and is asking to go home I will discharge her in stable condition told her to follow with her primary care provider within 2 to 3 days for recheck and come back to emergency department sooner with worsening pain shortness of breath fevers or other general concerns. Patient aware and agreeable with plan and verbalized understanding of the above instructions. Dragon Disclaimer Dragon Disclaimer This electronic medical record was generated, in whole or in part, using a voice recognition dictation system. Departure Departure: Impression: Primary Impression: Abdominal pain Additional Impressions: Dyspnea Pneumonia Disposition: HOME / SELF CARE / HOMELESS Condition: STABLE Referrals: BIRD JERONIMO MD (PCP) Patient Instructions: Shortness of Breath, [id number] Scripts Azithromycin (ZITHROMAX) 250 Mg Tablet 250 MG PO DAILY for ANTI-BIOTIC for 4 Days, #4 TAB 0 Refills Prov: KAELYN URENA DO 08/27/21 Problem Qualifiers Primary Impression: Abdominal pain Abdominal location: generalized Qualified Codes: R10.84 - Generalized abdominal pain Additional Impressions: Dyspnea Dyspnea type: unspecified Qualified Codes: R06.00 - Dyspnea, unspecified Pneumonia Pneumonia type: due to unspecified organism Laterality: left Lung location: lower lobe of lung Qualified Codes: J18.9 - Pneumonia, uns pecified organism KAELYN URENA DO August 27, 2021 18:31
--- NOTE | 2021-08-27 19:01 | RAD ---
Exam: Chest one view INDICATION: Short of air, pain TECHNIQUE: Frontal view of the chest Comparisons: 06/23/2021 FINDINGS: The cardiomediastinal silhouette and pulmonary vessels are within normal limits. Hazy opacity at the left lung base. No pleural effusion. IMPRESSION: Left basilar airspace disease may be infectious or inflammatory in etiology. Electronically signed by: Anderson Stanford MD (08/27/2021 6:59 PM) [facility]
[2021-08-27 19:27] LABS: BASO # 0.2 x10^3/uL (0.0-0.2); BASO % 2 % (0-3); EOS % 1 % (0-3); HEMATOCRIT 34.5 % (36.0-47.0); HEMOGLOBIN 11.3 g/dL (12.0-15.5); LYMPH # 3.3 x10^3/uL (1.0-4.8); LYMPH % 40 % (24-48); MEAN CORPUSCULAR HEMOGLOBIN 30 pg (25-35); MEAN CORPUSCULAR HGB CONC 33 g/dL (31-37); MEAN CORPUSCULAR VOLUME 92 fL (79-100); MONO # 0.7 x10^3/uL (0.0-1.1); MONO % 9 % (0-9); NEUT # 3.9 x10^3uL (1.8-7.7); NEUT % 49 % (31-73); PLATELET COUNT 308 x10^3/uL (140-400); RED BLOOD COUNT 3.73 x10^6/uL (3.50-5.40); RED CELL DISTRIBUTION WIDTH 13.9 % (11.5-14.5); WHITE BLOOD COUNT 8.1 x10^3/uL (4.0-11.0)
[2021-08-27 19:44] LABS: INFLUENZA A PATIENT NEGATIVE (NEGATIVE); INFLUENZA B PATIENT NEGATIVE (NEGATIVE)
[2021-08-27] MEDS ORDERED: IV NORMAL SALINE 50ML 50 ML ONE (19:55)
[2021-08-27] MEDS ORDERED: cefTRIAXone SODIUM 1 GM VIAL ONE (19:56)
[2021-08-27] MEDS ORDERED: MORPHINE SULFATE 4 MG/ML DISP.SYRIN. IV ONE (20:00)
[2021-08-27] MEDS ORDERED: AZITHROMYCIN 250 MG TABLET. PO ONE (20:00)
[2021-08-27 20:07] LABS: CALCIUM 8.1 mg/dL (8.5-10.1); GFR 72.5; POTASSIUM 3.5 mmol/L (3.5-5.1)
[2021-08-27] MEDS ORDERED: ONDANSETRON PF 4 MG/2 ML VIAL. IVP ONE (20:15)
[2021-08-27] MEDS ORDERED: IOHEXOL 350 MG/ML 100 ML VIAL. IV ONE (20:15)
[2021-08-27 20:20] LABS: ALBUMIN 2.8 g/dL (3.4-5.0); ALBUMIN/GLOBULIN RATIO 0.7 (1.0-1.7); TOTAL BILIRUBIN 0.6 mg/dL (0.2-1.0); TOTAL PROTEIN 7.1 g/dL (6.4-8.2)
--- NOTE | 2021-08-27 21:05 | RAD ---
CTA Chest abdomen and pelvis with contrast: Clinical History: Reason: soa, elevated dimer, chronic abd pain, liver failure Omni 350 100 / Spl. In structions: / History: Shortness of breath. Axial helical images of the chest abdomen and pelvis were obtained after the administration of 100 cc of IV Omnipaque 350 and timed appropriately for an arterial study. Conventional axial reconstructio n was performed in addition to coronal, sagittal and bilateral oblique MIP (maximum intensity project ion). CTA of the chest with contrast: This study was ordered to detect possible pulmonary embolism. There are no filling defects to suggest pulmonary embolism. There is mild groundglass opacities in the lungs bilaterally likely discoid atelectasis. There is no mediastinal or hilar lymphadenopathy. The thoracic aorta appears normal. Impression: 1. No evidence of pulmonary embolism. 2. No significant findings. End of impression CTA OF THE ABDOMEN AND PELVIS WITH IV CONTRAST. There is a pessary in place. The appendix is not well seen but appears normal. The has been prior cho lecystectomy. There is gastric bypass. The aorta and great vessels appear normal. Liver: Unremarkable Spleen: Unremarkable Pancreas: Unremarkable Adrenal Glands: Unremarkable Kidneys: Unremarkable There is no mass or lymphadenopathy. There is no free air. There is no free fluid. The urinary bladder appears normal. Impression: Postsurgical changes. Stable appearance of the abdomen and pelvis. End Impression PQRS Compliance Statement: One or more of the following individualized dose reduction techniques were utilized for this examinat ion: 1. Automated exposure control 2. Adjustment of the mA and/or kV according to patient size 3. Use of iterative reconstruction technique Electronically signed by: Jerrod Guzmán III, MD (08/27/2021 9:03 PM) [facility]
[2021-08-27] MEDS ORDERED: AZIT250T PO (21:20)
[2021-08-27 21:29] VITALS: BP 155/90
== END 2021-08-27 21:29 | disposition home or self-care (01) ==
LOC: ER 18:05
DX: J18.9 Pneumonia, unspecified organism (principal); R10.84 Generalized abdominal pain; G89.29 Other chronic pain; G43.909 Migraine, unspecified, not intractable, without status migrainosus; Z20.822 Contact with and (suspected) exposure to COVID-19; Z87.440 Personal history of urinary (tract) infections; Z90.49 Acquired absence of other specified parts of digestive tract; Z98.890 Other specified postprocedural states; Z98.84 Bariatric surgery status; Z90.710 Acquired absence of both cervix and uterus; Z98.51 Tubal ligation status
CPT/HCPCS: 36415; 71045; 71275; 74177; 80053; 82140; 83880; 84484; 85025; 85379; 87428; 94640; 96361; 96374; 96375; 99285; G0480; J0696; J2270; J2405; J2930; J3010; J7030; Q9967